=== PATIENT | female | born 1960 | race Caucasian/White ===

== ENCOUNTER → 2016-11-05 | Outpatient (CLI) | payer OTHER ==
[~2016-11-05] MED LIST: ANAS1TAB19 PO; CITA20TA9 PO; LEVO88TA PO; PRLSR20 PO
[2016-11-05 15:02] VITALS: BP 129/76; PULSE 76; TEMP 36.7; O2SAT 96
--- NOTE | 2016-11-05 16:58 | Radiation Oncology Follow-Up ---
Radiation Oncology Follow-Up Date of Visit Nov 05, 2016. Reason For Visit One-month follow-up and cancer survivorship care plan Radiation Completion Date 10/05/16 Diagnosis (1) Breast cancer Status: Acute Onset Date: 06/02/2016 Stage: 0 Permanent Comment: Self detected left breast mass Abnormal left breast mammogram Status post ultrasound-guided biopsies of both areas revealing invasive carcinoma 6:00 biopsy benign and 2:00 biopsy revealing DCIS with microinvasion Status post lumpectomy and sentinel lymph node biopsy 07/15/2016 DCIS and invasive carcinoma Estrogen receptor positive, progesterone receptor positive, HER-2/shayne negative Stage pT1c pN0M0 Prosigna score of 56 Status post completion of radiation therapy 10/05/2016 received 5130 cGy utilizing hypo-fractionation Last Edited By: Ingrid Potter on October 13, 2016 09 :06 History of Present Illness Ms. Abbott is a 56-year-old female without a family history of breast cancer. On July 22 2012 the patient underwent a screening mammogram. At the posterior depth was a superior MLO grouped in determining calcifications thought to be at the 12:00 to 1 o'clock position. Magnification views and ultrasound were recommended. Because of the lack of insurance patient stated she did not to proceed with additional testing is recommended. She subsequently self detected a palpable abnormality in the left breast at the 6 o' clock position. On 05/25/2016 patient underwent a diagnostic mammogram for a palpable abnormality in the inferior portion of the left breast. The mammogram again confirmed extremely dense breast tissue. At the 6 o'clock position in the area of concern to the patient were several small round masses. An ultrasound in the upper outer quadrant at the 2 o'clock position posteriorly there was a lobulated, hypoechoic 1.4 x 0.9 x 1.1 cm mass with internal calcifications. Just medial and superior to this is an ill-defined hypoechoic area with distal shadowing. Both of these areas are suspicious and warrant tissue sampling. In the area of the palpable abnormality there was a slightly irregular marginated, heterogeneous, hypoechoic mass measuring 1.2 x 1.0 x 1.1 cm. This was also suspicious and tissue sampling was warranted. The right breast was also extremely dense but otherwise unremarkable. On 06/02/2016 patient underwent ultrasound-guided breast biopsies. The patient was initially scheduled for biopsy of 2 sites at the 12:00 and 6:00 site. Upon further scanning the 2:00 site is contiguous with the initial site and no second dominant site was identified. A biopsy of the 6:00 mass revealed fat necrosis. Biopsy of the 2:00 mass however revealed ductal carcinoma in situ with microinvasion of a proximally 1 mm with high nuclear grade, solid type measuring 0.6 cm in greatest dimension and involving 2 of the core biopsies. Estrogen receptors were strongly positive and progesterone receptors were moderately positive. HER-2/shayne oncogene expression was negative. A BNC5 consisting of immunohistochemical stain for p63 demonstrated bilateral epithelial cells around most of the atypical tumor nests confirming in situ neoplastic epithelial proliferation. Accession #: [id number]. Patient was seen by Dr. Coffey and bilateral breast MRIs were recommended. The patient agreed and these were performed on 06/30/2016. In the left breast there was an irregular enhancing 1.6 x 1.0 x 1.5 cm mass located in the retroareolar region posteriorly at the site of the known cancer. No other areas of abnormal enhancement was identified. No abnormal axillary adenopathy was visualized. In the right breast no suspicious enhancement was seen and no abnormal axillary lymph nodes were visualized. In the extramammary tissue a 5 mm STIR hyperintense oval area of enhancement is present within the sternum. A bone scan was performed on 07/10/2016 because of this finding on MRI. There was however no evidence of osteoblastic metastatic disease appreciated. Dr. Coffey discussed surgical treatment options and the patient agreed to proceed with a breast conserving therapy technique. Therefore on 07/15/2016 patient underwent a left partial mastectomy and sentinel node biopsy. A total of 6 sentinel lymph nodes were identified and all were negative for metastatic disease. The lumpectomy specimen showed ductal carcinoma in situ, high-grade, solid and cribriform types with luminal necrosis and associated microcalcifications. This area measured 1.1 cm and involved 5 blocks of tissue. Margins were negative for carcinoma. The mass was located 0.15 cm from the closest deep margin. Additional resection of the deep margin provided an additional 1 cm of uninvolved tissue. On the partial mastectomy specimen the microinvasion was indeterminate and a BNC5 was ordered and reported as an addendum. 4 of the 5 blocks tested were positive indicating presence of invasive carcinoma. Based on this information is felt that the invasive carcinoma measures at least 1.2 cm in greatest dimension. An MIB-1 showed 10-20 % proliferative activity, focally reaching up to 30% in the invasive carcinoma, NST, as well as in the in situ components. No angiolymphatic invasion was noted in the multiple blocks examined. Accession #: [id number]. Final pathology is therefore pT1c pN0(sn-) ER positive, NE positive and HER-2/shayne negative. Patient was seen by Dr. Cirilo Barrera for evaluation of the role of adjuvant systemic therapy. He reviewed the pathology which was somewhat confusing as the synoptic report described this as DCIS with possible microinvasion. However the addendum did indicate that there was evidence of invasion. The quantity of invasive disease however was also not clearly defined. It appears that the 4 blocks that tested positive for invasive carcinoma are signed a thickness of 0.3 cm. Thus multiple lying 40.3 cm gives a dimension of 1.[address] Rivear was in discussion with the pathologist to clarify this information. He therefore ordered a Prosigna test to better define the aggressiveness or lack thereof of this lesion. He is waiting for these results prior to making a decision on potential systemic chemotherapy versus adjuvant antiestrogen therapy for 5 years. We were asked to see the patient in referral to review with her the role of adjuvant radiation. The Prosigna score was 56. Chemotherapy was not given. She returned and underwent a CT simulation. She was found to be a candidate for hypo- fractionation. Radiation was completed 10/05/2016. She received 5130 cGy. Interim History Over this past month she continues to have some discomfort of the breast she describes this as a jabbing discomfort. It is very brief period. When it occurs if she applies pressure to the breast it helps to relieve the discomfort. She has noticed dryness of the skin and has been using natural care gel and Aquaphor. She denies any areas of redness or increased warmth. There is no change of the axilla. She does not noticed swelling of her arm. She is scheduled for follow-up mammography. Mammogram has been scheduled for . She also has follow-up appointments with Dr. Coffey and Dr. Barrera. She has been started on Arimidex. She does have hot flashes. She continues to have some residual fatigue. Allergies Coded Allergies: Ibuprofen (Unverified Allergy, Mild, 10/03/14) Sulfa Drugs (Unverified Allergy, Mild, 10/03/14) BEE STING (Verified Allergy, Unknown, ., 10/03/14) Home Medications Scheduled Anastrozole (Arimidex), 1 TAB PO DAILY Citalopram Hydrobromide (Celexa), 20 MG PO DAILY Levothyroxine Sodium (Synthroid), 88 MCG PO DAILY Omeprazole (Prilosec), 20 MG PO DAILY Review of Systems Gastrointestinal: Symptoms: WNL Oral: Symptoms: No Problems Respiratory: Symptoms: Dry Cough Respiratory Comments: occasional dry cough Urinary: Symptoms: WNL Skin: Symptoms: No Problems Breast: Right Upper Arm Measurement: 34.0 Right Mid Arm Measurement: 26.5 Right Wrist Measurement: 17.5 Left Upper Arm Measurement: 34.5 Left Mid Arm Measurement: 27.5 Left Wrist Measurement: 17.5 Arm Dominence: Right Physical Exam Vital Signs Date Time Temp Pulse Resp B/P (MAP) Pulse Ox O2 Delivery O2 Flow Rate FiO2 11/05/16 15:02 36.7 76 18 129/76 96 Pain: Pain Onset: during radiation Pain Duration: since during radiation Patient Pain Scale: 0 - 10 Initial Pain Intensity: 0.0 Additional Comments: occasionally I get stabbing pain through the right breast Fatigue: None General Appearance: no apparent distress Eyes: normal inspection, EOMI ENT: normal ENT inspection, hearing grossly normal Neck: no adenopathy, thyroid normal Respiratory/Chest: lungs clear, no respiratory distress, no accessory muscle use Breast: Breast examination reveals well-healed incision of the left breast. There is resolving hyperpigmentation. There is a noted area of increased hyperpigmentation in the area of her boost. There are no masses or tenderness and no axillary adenopathy. She has no skin retractions or nipple changes. There is no edema of the breast. The right breast showed no masses or tenderness no axillary adenopathy. Cardiovascular: regular rate, rhythm, no gallop, no murmur Extremities: no pedal edema Neurologic/Psychiatric: no motor/sensory deficits, alert, normal mood/affect Skin: warm/dry Lymphatic: no adenopathy Assessment & Plan Plan: She is currently scheduled for mammography on 12/10/2016. She'll continue with digital diagnostic mammograms. She hasn't appointment see Dr. Coffey on 12/29/2016. She continues on Arimidex and will be following with Dr. Rivera on 01/14/2017. I have recommended that she use Aquaphor on a regular basis for the dry skin. We discussed the hyperpigmentation most steadily resolved over time. Today we completed a cancer survivorship care plan. A copy of the document was given to the patient. For the intermittent discomfort of the breast have asked her to take Aleve once a day regularly for one week. She can then discontinue the medication. She does have an allergy to ibuprofen but is able to take him without difficulty. We asked her to return to our office in 6 months. She may call if she has any questions or concerns in the interim. Total Time In Follow-Up I spent 20 minutes speaking to the patient and performing examination. I spent 20 minutes reviewing information, preparing the survivorship document, and completing this note. Copy To Katrin Coffey MD; Venkat Graves M.D.; Cirilo Barrera M.D. Problem Qualifiers (1) Breast cancer: Breast location: upper outer quadrant of breast Estrogen receptor status: positive Patient sex: female Laterality: left Qualified Codes: C50.412 - Malignant neoplasm of upper-outer quadrant of left female breast; Z17.0 - Estrogen receptor positive status [ER+]
== END | disposition home or self-care (01) ==
LOC: C.ONC 14:52
PROVIDERS: ATTEND Physician Assistant Medical
DX: Z08 Encounter for follow-up examination after completed treatment for malignant neoplasm (principal); Z92.3 Personal history of irradiation; Z85.3 Personal history of malignant neoplasm of breast

== ENCOUNTER → 2017-05-11 | Outpatient (CLI) | payer OTHER ==
[~2017-05-11] MED LIST changes: -ANAS1TAB19 PO; +ANAS1TAB59 PO
[2017-05-11 13:42] VITALS: BP 136/82; PULSE 67; TEMP 36.9; O2SAT 96
--- NOTE | 2017-05-11 16:09 | Radiation Oncology Follow-Up ---
Radiation Oncology Follow-Up Date of Visit May 11, 2017. Reason For Visit 6 month follow-up Radiation Completion Date 10/05/16 Diagnosis (1) Breast cancer Status: Acute Onset Date: 06/02/2016 Histology Subtype: DCIS with microinvasion Stage: l Permanent Comment: Self detected left breast mass Abnormal left breast mammogram Status post ultrasound-guided biopsies of both areas revealing invasive carcinoma 6:00 biopsy benign and 2:00 biopsy revealing DCIS with microinvasion Status post lumpectomy and sentinel lymph node biopsy 07/15/2016 DCIS and invasive carcinoma Estrogen receptor positive, progesterone receptor positive, HER-2/shayne negative Stage pT1c pN0M0 Prosigna score of 56 Status post completion of radiation therapy 10/05/2016 received 5130 cGy utilizing hypo-fractionation Last Edited By: Ingrid Potter on October 13, 2016 09 :06 History of Present Illness Ms. Abbott is without a family history of breast cancer. On July 22 2012 the patient underwent a screening mammogram. At the posterior depth was a superior MLO grouped in determining calcifications thought to be at the 12:00 to 1 o'clock position. Magnification views and ultrasound were recommended. Because of the lack of insurance patient stated she did not to proceed with additional testing is recommended. She subsequently self detected a palpable abnormality in the left breast at the 6 o'clock position. On 05/25/2016 patient underwent a diagnostic mammogram for a palpable abnormality in the inferior portion of the left breast. The mammogram again confirmed extremely dense breast tissue. At the 6 o'clock position in the area of concern to the patient were several small round masses. An ultrasound in the upper outer quadrant at the 2 o'clock position posteriorly there was a lobulated, hypoechoic 1.4 x 0.9 x 1.1 cm mass with internal calcifications. Just medial and superior to this is an ill-defined hypoechoic area with distal shadowing. Both of these areas are suspicious and warrant tissue sampling. In the area of the palpable abnormality there was a slightly irregular marginated, heterogeneous, hypoechoic mass measuring 1.2 x 1.0 x 1.1 cm. This was also suspicious and tissue sampling was warranted. The right breast was also extremely dense but otherwise unremarkable. On 06/02/2016 patient underwent ultrasound-guided breast biopsies. The patient was initially scheduled for biopsy of 2 sites at the 12:00 and 6:00 site. Upon further scanning the 2:00 site is contiguous with the initial site and no second dominant site was identified. A biopsy of the 6:00 mass revealed fat necrosis. Biopsy of the 2:00 mass however revealed ductal carcinoma in situ with microinvasion of a proximally 1 mm with high nuclear grade, solid type measuring 0.6 cm in greatest dimension and involving 2 of the core biopsies. Estrogen receptors were strongly positive and progesterone receptors were moderately positive. HER-2/shayne oncogene expression was negative. A BNC5 consisting of immunohistochemical stain for p63 demonstrated bilateral epithelial cells around most of the atypical tumor nests confirming in situ neoplastic epithelial proliferation. Accession #: [id number]. Patient was seen by Dr. Coffey and bilateral breast MRIs were recommended. The patient agreed and these were performed on 06/30/2016. In the left breast there was an irregular enhancing 1.6 x 1.0 x 1.5 cm mass located in the retroareolar region posteriorly at the site of the known cancer. No other areas of abnormal enhancement was identified. No abnormal axillary adenopathy was visualized. In the right breast no suspicious enhancement was seen and no abnormal axillary lymph nodes were visualized. In the extramammary tissue a 5 mm STIR hyperintense oval area of enhancement is present within the sternum. A bone scan was performed on 07/10/2016 because of this finding on MRI. There was however no evidence of osteoblastic metastatic disease appreciated. Dr. Coffey discussed surgical treatment options and the patient agreed to proceed with a breast conserving therapy technique. Therefore on 07/15/2016 patient underwent a left partial mastectomy and sentinel node biopsy. A total of 6 sentinel lymph nodes were identified and all were negative for metastatic disease. The lumpectomy specimen showed ductal carcinoma in situ, high-grade, solid and cribriform types with luminal necrosis and associated microcalcifications. This area measured 1.1 cm and involved 5 blocks of tissue. Margins were negative for carcinoma. The mass was located 0.15 cm from the closest deep margin. Additional resection of the deep margin provided an additional 1 cm of uninvolved tissue. On the partial mastectomy specimen the microinvasion was indeterminate and a BNC5 was ordered and reported as an addendum. 4 of the 5 blocks tested were positive indicating presence of invasive carcinoma. Based on this information is felt that the invasive carcinoma measures at least 1.2 cm in greatest dimension. An MIB-1 showed 10-20 % proliferative activity, focally reaching up to 30% in the invasive carcinoma, NST, as well as in the in situ components. No angiolymphatic invasion was noted in the multiple blocks examined. Accession #: [id number]. Final pathology is therefore pT1c pN0(sn-) ER positive, LA positive and HER-2/shayne negative. Patient was seen by Dr. Ciirlo Barrera for evaluation of the role of adjuvant systemic therapy. He reviewed the pathology which was somewhat confusing as the synoptic report described this as DCIS with possible microinvasion. However the addendum did indicate that there was evidence of invasion. The quantity of invasive disease however was also not clearly defined. It appears that the 4 blocks that tested positive for invasive carcinoma are signed a thickness of 0.3 cm. Thus multiple lying 40.3 cm gives a dimension of 1.[address] Rivera was in discussion with the pathologist to clarify this information. He therefore ordered a Prosigna test to better define the aggressiveness or lack thereof of this lesion. He is waiting for these results prior to making a decision on potential systemic chemotherapy versus adjuvant antiestrogen therapy for 5 years. We were asked to see the patient in referral to review with her the role of adjuvant radiation. The Prosigna score was 56. Chemotherapy was not given. She returned and underwent a CT simulation. She was found to be a candidate for hypo- fractionation. Radiation was completed 10/05/2016. She received 5130 cGy. Interim History She's been doing well in regards to her breast. She noted a masses or tenderness no change of the axilla she's had no swelling of her arm. She is up- to-date on mammography. She had a mammogram 12/10/2016. This was of the left breast. Findings are probably benign. A short interval follow-up was recommended in 6 months. She is for recheck mammogram 05/14/2017. She does have a complaint of a occipital headache. This was been going on for the past 2 -3 months. She is a pain level of 3. This can be up to level . She is takes Aleve. This does not help. There is been no visual changes. She has no associated nausea or vomiting. She did see the eye doctor and had her vision checked and it was doing fine. We discussed possible strenuous activities. She does not recall any strains to her neck. Allergies Coded Allergies: Ibuprofen (Unverified Allergy, Mild, 10/03/14) Sulfa Drugs (Unverified Allergy, Mild, 10/03/14) BEE STING (Verified Allergy, Unknown, ., 10/03/14) Home Medications Scheduled Anastrozole (Arimidex), 1 TAB PO DAILY Citalopram Hydrobromide (Celexa), 20 MG PO DAILY Levothyroxine Sodium (Synthroid), 88 MCG PO DAILY Omeprazole (Prilosec), 20 MG PO DAILY Review of Systems Gastrointestinal: Symptoms: WNL Oral: Symptoms: No Problems Respiratory: Symptoms: WNL Urinary: Symptoms: WNL Skin: Symptoms: No Problems Breast: Right Upper Arm Measurement: 33.5 Right Mid Arm Measurement: 28.5 Right Wrist Measurement: 17.1 Left Upper Arm Measurement: 35.1 Left Mid Arm Measurement: 27.9 Left Wrist Measurement: 17.1 Arm Dominence: Right Physical Exam Vital Signs Date Time Temp Pulse Resp B/P (MAP) Pulse Ox O2 Delivery O2 Flow Rate FiO2 05/11/17 13:42 36.9 67 18 136/82 96 General Appearance: no apparent distress Eyes: normal inspection, EOMI ENT: normal ENT inspection, hearing grossly normal Neck: no adenopathy, thyroid normal, no JVD, + pertinent finding (she has tenderness of the left posterior neck. There is tenderness of the left occipital area.) Respiratory/Chest: lungs clear, no respiratory distress, no accessory muscle use Cardiovascular: regular rate, rhythm, no gallop, no murmur Neurologic/Psychiatric: no motor/sensory deficits, alert, normal mood/affect Skin: warm/dry Pain Management Patient Reports Pain: Yes Pain Management Plan She is going to take 2 Aleve twice daily with food for the next week. She'll also apply warm compresses Laboratory Laboratory Results: not applicable Pathology Pathology Results: not applicable Imaging Imaging Studies: were reviewed, and pertinent findings noted below Imaging Comments Date/Time of Imaging Study Study Completed: 12/10/2016 1:41 PM [facility] PACS Image Narrative Comparison is made to images from 06/02/2016 (left) and images from 05/25/2016 ( bilateral) and outside images from 10/19/2005 ([facility] The patient is status post lumpectomy of 2:00 DCIS with microinvasion July 2016. Benign 6:00 mass with pathology demonstrating fat necrosis via biopsy May 2016. Left Breast Findings: The breast is extremely dense (greater than 75% fibroglandular) which could obscure a lesion on mammography. Biopsy clip from prior benign 6:00 biopsy noted. No new suspicious calcifications, masses or other abnormalities. Authenticated By Authenticating Date Authenticating Time Reading Providers(s) GREGORIA SHEARER MD 12-10-2016 14:05 GREGORIA SHEARER MD IMPRESSION: LEFT BREAST: Findings are probably benign. A short interval follow-up is recommended in 6 months. She will be due for bilateral mammogram at that time. The above findings and recommendations were discussed with and understood by the patient. Note: Approximately 10% of breast cancers are not detected on mammography. A negative mammographic report should not delay biopsy if a clinically suggestive mass is present. This mammogram has been analyzed with the computer aided detection system. Tomosynthesis was done. This notice contains the results of your recent mammogram, including information about breast density. If your mammogram shows that your breast tissue is dense, you should know that dense breast tissue is a common finding and is not abnormal. Statistics show many women could have dense or highly dense breasts. Dense breast tissue can make it harder to find cancer on a mammogram and may be associated with an increased risk of cancer. This information about the result of your mammogram is given to you to raise your awareness and to inform your conversations with your physician. Together, you can decide which screening options are right for you, based on your mammogram results, individual risk factors or physical examination. A report of your results was sent to your physician. Your mammographic breast density on today's study is described above. There are four categories of breast density on mammography. Fatty breasts and those with scattered fibroglandular tissue are not considered dense. Heterogeneously dense or extremely dense tissue is considered "dense". Please understand that assessment of breast density may vary from year to year. OVERALL ASSESSMENT - CATEGORY 3 - PROBABLY BENIGN END OF IMPRESSION Assessment & Plan Plan: Patient describes and has examination grammatical with the muscle tension headache. I've asked her to apply warm compresses each evening. She is also going to take 2 Aleve twice a day for one week. She'll take the medication with food. We discussed mild stretching exercises for the neck. I've asked her to discuss these symptoms with if they are not improving. We asked her to return to our office in 1 year. She may call if she has any questions or concerns in the interim. Total Time In Follow-Up I spent 25 minutes speaking to the patient performing examination. I spent 15 minutes reviewing information in completing this note. Copy To Katrin Coffey MD; Venkat Graves M.D.; Cirilo Barrera M.D. Problem Qualifiers (1) Breast cancer: Breast location: upper outer quadrant of breast Estrogen receptor status: positive Patient sex: female Laterality: left Qualified Codes: C50.412 - Malignant neoplasm of upper-outer quadrant of left female breast; Z17.0 - Estrogen receptor positive status [ER+]
== END | disposition home or self-care (01) ==
LOC: C.ONC 13:27
PROVIDERS: ATTEND Physician Assistant Medical
DX: Z08 Encounter for follow-up examination after completed treatment for malignant neoplasm (principal); Z92.3 Personal history of irradiation; Z85.3 Personal history of malignant neoplasm of breast

== ENCOUNTER 2020-07-11 07:25 | Observation (INO) ==
--- NOTE | 2020-07-04 11:34 | History & Physical Report ---
Date of Service July 04, 2020 Assessment & Plan Admission and Anticipated Discharge Date Admission Date: PRE-OP Diagnosis: Left knee degenerative joint disease Planned Procedure: Left total knee arthroplasty Plan: Patient is scheduled to undergo this procedure with Dr. Agudelo the [facility] on July 11, 2020. Risks and complications of the procedure such as: Infection, bleeding, pain, scarring, nerve blood vessel damage, weakness, wound problems, stiffness, incomplete relief of symptoms, hardware failure, hardware loosening, wear, fracture, tendon or ligament injury, blood clots, embolism, heart attack, stroke and were explained the patient at her visit on May 07, [address] Agudelo. Informed consent form the procedure was obtained. Patient also understands risks of proceeding with surgical intervention during the COVID-19 pandemic. Currently she is asymptomatic and understands that she will be tested today. Patient has met with anesthesia at the hospital and has done a second phone interview. We will need to obtain an updated CBC with differential, complete metabolic panel, PT/INR, blood type and screen, urinalysis, urine culture and sensitivity, hemoglobin A1c and a nasal culture for MRSA. Patient states that she will proceed to the laboratory and obtain this test this morning. Her EKG is currently up-to-date and does not need to be repeated. We also have obtained preoperative medical clearance from the patient's primary care provider Dr. Juancho Graves. During today's visit we again discussed specifics of the surgery, reviewed the total knee packet, discussed antibiotic use for dental procedures after total joint arthroplasty, talked about discharge planning after surgery. I provided her with some paperwork to obtain a handicap placard for her vehicle and we talked about zoom meetings offered by [facility] in regards to her replacement surgery via zoom. Patient states she has a walker that she will bring with her on the day of the procedure. I advised her that she will be on aspirin for DVT prophylaxis following surgery. I advised her that we will also provide her with some pain relieving agents upon discharge. Patient is scheduled for 2-week postoperative follow-up visit with myself on July 26, 2020 1:30 in the afternoon. Patient verbalized understanding of all information provided during today's visit. She thanks for the care that she received. Patient states she has questions or concerns should arise prior to her surgery, she will contact clinic. History of Present Illness Chief Complaint: Chief Complaint: Left knee pain Primary Care Provider: Tamie Burns PA-C History of Present Illness (including history relevant to procedure): This 60-year-old female presents the clinic today for preoperative history and physical. The patient has had issues with her left knee dating back to when she was in her 20s. She says about 7 years ago was when her symptoms started really worsening. Now, it is to the point where she is having difficulty walking, sitting, or even sleeping. She points to the medial aspect of her knee and anterior aspect of the knee as where she feels most of the pain. Occasionally, she will feel posterior knee pain. She has been taking this and this has been helping somewhat. Denies any numbness or tingling. She is getting a lot of mechanical symptoms; popping, catching, and clicking. Patient is failed conservative management with the use of nonsteroidal agents, injections and physical therapy. Patient was initially scheduled for this procedure on June 06, 2020, however it was canceled due to the operating room at the [facility] being closed due to the COVID-19 pandemic upswing. Review Of Systems: A 14 point review of systems performed is unremarkable except for those things stated in the HPI Past Medical History: Problems: Left knee DJD Preop examination Left knee pain Anxiety/depression Hypothyroidism GERD Hiatal hernia Breast cancer Procedure History Procedure Procedure Date Comments Breast cancer surgery section x2 2017 1985 &1991 Allergies and Sensitivities: Bee stings(Anaphylaxis) sulfa drugs(Persistent redness of skin) ibuprofen(scatchy throat, hives) Social history: Completely unremarkable Family history: Stroke Current Home Meds: (Last Updated 07/04 10:21) acetaminophen (Tylenol) 500 mg PO with meloxicam ciprofloxacin (Cipro 500 mg oral tablet) 500 mg PO q12h citalopram (citalopram 20 mg oral tablet) Responsible Provider: TAMIE BURNS 01/25 10:20 diclofenac topical (Voltaren 1% topical gel) 1 appl topical qid PRN: Pain 4g to affected area 4 times a day letrozole (letrozole 2.5 mg oral tablet) Responsible Provider: CAROLE SHEN 01/25 10:20 levothyroxine (levothyroxine 88 mcg (0.088 mg) oral tablet) Responsible Provider: JUANCHO GRAVES 01/25 10:20 omeprazole (omeprazole 20 mg oral delayed release capsule) 20 Unknown, Oral sodium hyaluronate (Euflexxa 10 mg/mL intra-articular solution) 25 mg intra- articular q7days Initial Wt: 07/04 90.0 kg 198 lb Allergies Allergy/AdvReac Type Severity Reaction Status Date / Time bee venom protein (honey bee) Allergy Intermediate THROAT Verified 07/02/20 15:35 SWELLING ibuprofen Allergy Intermediate Hives Unverified 07/02/20 15:35 Sulfa (Sulfonamide Allergy Intermediate Hives Unverified 07/02/20 15:35 Antibiotics) Home Medications Medication Instructions Recorded Confirmed Type citalopram 20 mg PO QAM 12/15/19 07/02/20 History letrozole 2.5 mg PO QAM 12/15/19 07/02/20 History levothyroxine 88 mcg PO QAM 12/15/19 07/02/20 History omeprazole 20 mg PO QAM 12/15/19 07/02/20 History diphenhydramine HCl [Benadryl] 25 mg PO UD PRN 04/29/20 07/02/20 History epinephrine [Epi E-Z Pen] 0.3 mg IM UD PRN 04/29/20 07/02/20 History Past Med/Surg History Medical History Breast cancer (06/02/16) 2017, Invasive carcinoma of L breast, s/p lumpectomy and radiation. Depression Fatty liver GERD (gastroesophageal reflux disease) History of breast cancer DX 2017, LEFT - LUMPECTOMY WITH LYMPH NODES & RADIATION Thyroid disease Surgical History History of 2 sections History of anesthesia reaction 1992 - Awareness during C/S after gas/mask induction. Eyes were closed but she could hear everything. Does not recall having spinal, but recalls only feeling pressure during procedure. History of colonoscopy History of lumpectomy of left breast WITH LYMPH NODES Family History Other No family history of adverse response to anesthesia Social History Smoking Status: Never smoker Second Hand Exposure: No; Hx Alcohol Use: No Preferred Language: [place] Communication Ability: Effective Plan Coordinator Required: No Beliefs That Will Affect Care: None Current Living Situation: Spouse Feels Safe at Home: Yes Assistive Devices: Brace/Splint/Immobilizer, Denture - Upper, Denture - Lower and Glasses Review of Systems All systems reviewed & are unremarkable except as noted in Subjective Physical Exam Physical Exam: Physical Exam: (relevant to the procedure, including heart and lung evaluation) General: Alert and oriented x3 with proper grooming and hygiene Eyes: Pupils are equal and reactive to light with accommodation. Extraocular movements are intact Throat: Deferred due to COVID-19 precautions Cardiac: Regular rate and rhythm no murmurs or gallops appreciated Lungs: Clear to auscultation throughout no wheezing, rales or rhonchi Abdomen: Mildly obese, nondistended, nontender, normal active bowel sounds Extremities: Left knee; Trace effusion. Tender to palpation along the medial m ore than lateral joint lines. Also severely tender along the patellofemoral joint. Range of motion is from 3 degrees up to 120 degrees. Neuro: Alert and oriented x3 appropriate hygiene Skin: Normal in appearance no open skin areas or discharge Results & Data ([facility]) Diagnostic Findings Studies (relevant to the procedure): X-rays done demonstrate patellofemoral severe arthritis and moderately severe tibiofemoral arthritis in the medial compartment.
--- NOTE | 2020-07-04 13:07 | Anesthesiology Consultation ---
Date of Service July 04, 2020 Assessment & Plan (1) Encounter for pre-operative examination: Chart Review Chart Review: Acceptable Risk for Surgery (pending preop Covid testing results ) and Patient NOT seen in Pre Admission Testing Left limb restriction Per nursing assessment 07/02/20, pt denies any recent travel. No known Covid positive contacts or Covid related symptoms. Pt denies Covid infection in the past 90 days. Scheduled for preop Covid testing 07/04/20= will await results. Per PCP clearance request 05/09/20= "Yes" patient is medically cleared History Surgery Operation Date: 07/11/20 10:35 Proposed Procedures p Left Total Knee Arthroplasty - Dionte Agudelo MD Height/Weight Height: 5 ft 7.5 in Weight: 90.718 kg Allergies Allergy/AdvReac Type Severity Reaction Status Date / Time bee venom protein (honey bee) Allergy Intermediate THROAT Verified 07/02/20 15:35 SWELLING ibuprofen Allergy Intermediate Hives Unverified 07/02/20 15:35 Sulfa (Sulfonamide Allergy Intermediate Hives Unverified 07/02/20 15:35 Antibiotics) Medications Home Medications Medication Instructions Recorded Confirmed Last Taken citalopram 20 mg PO QAM 12/15/19 07/02/20 12/14/19 letrozole 2.5 mg PO QAM 12/15/19 07/02/20 12/14/19 levothyroxine 88 mcg PO QAM 12/15/19 07/02/20 12/14/19 omeprazole 20 mg PO QAM 12/15/19 07/02/20 12/14/19 diphenhydramine HCl [Benadryl] 25 mg PO UD PRN 04/29/20 07/02/20 Unknown epinephrine [Epi E-Z Pen] 0.3 mg IM UD PRN 04/29/20 07/02/20 Unknown Past Medical History Medical History Breast cancer (06/02/16) 2017, Invasive carcinoma of L breast, s/p lumpectomy and radiation. Depression Fatty liver GERD (gastroesophageal reflux disease) Thyroid disease Hypothyroidism Past Family History Family History Other No family history of adverse response to anesthesia Past Surgical History Surgical History History of 2 sections History of anesthesia reaction 1991 - Awareness during C/S after gas/mask induction. Eyes were closed but she could hear everything. Does not recall having spinal, but recalls only feeling pressure during procedure. History of colonoscopy History of lumpectomy of left breast WITH LYMPH NODES Social History Smoking Status: Never smoker Hx Alcohol Use: No substance use type: does not use Testing Laboratory Results Laboratory Tests 07/04/20 07/04/20 07/04/20 11:05 11:05 11:05 WBC 7.54 Hgb 15.4 Hct 46.4 Plt Count 270 PT 10.1 INR 1.0 Sodium 142 Potassium 4.3 Chloride 108 H Carbon Dioxide 29 BUN 14 Creatinine 1.14 Glucose 105 H 07/04/20= HGB A1C: 5.7 UA: bacteria negative Electrocardiogram Date: 05/07/20 Findings: + SB @ (59bpm) Minimal voltage criteria for LVH, may be normal variant. No significant change from 2014.
[~2020-07-11 07:25] MED LIST changes: +ACETAMINOPHEN 500 MG TAB PO SCH; -ANAS1TAB59 PO; +BUPIVACAINE 0.5 % 5 MG/1 ML PF 10ML VIAL ONE; -CITA20TA9 PO; +EPINEPHrine INJ 1 MG/ML AMP ONE; +FAMOTIDINE 20 MG TAB PO SCH; -LEVO88TA PO; +LR 60ML/HR IV SCH; +METOCLOPRAMIDE HCL 10 MG TABLET PO SCH; -PRLSR20 PO; +ROPIVACAINE 0.5% 5 MG/ML 30 ML VIAL ONE; +ROPIVACAINE 0.5% HCL/PF 150 MG, BUPIVACAINE 0.75% MPF 20 ML, EPINEPHrine 0.15 MG, Ketor... INFIL SCH; +TRANEXAMIC ACID 1,000 MG **IV Intra-op IV SCH; +TRANEXAMIC ACID 1,000 MG **IV Pre-op IV SCH; +[UNRECOGNIZED DRUG - REMARK] SCH; +ceFAZolin 2000MG 2,000 MG/15 ML SYR IV SCH; +dexAMETHasone 4 MG TAB PO SCH; +traMADol HCL 50 MG TABLET PO SCH
[2020-07-11] MEDS: LR 500ML BOLUS, THEN 15ML/HR IV SCH ×2 (08:11→10:16)
[2020-07-11] MEDS ORDERED: MIDAZOLAM HCL 1 MG/ML 2ML VIAL ONE (09:15)
[2020-07-11] MEDS ORDERED: ONDANSETRON INJ 2 MG/ML 2 ML VIAL ONE (09:15)
[2020-07-11] MEDS ORDERED: PROPOFOL IV EMULSION 10 MG/ML 20 ML VIAL IV ONE (09:15)
[2020-07-11] MEDS ORDERED: fentaNYL citrate 100 MCG/2 ML VIAL ONE (09:15)
[2020-07-11] MEDS ORDERED: ORTHO JOINT ANESTHETIC ONE (10:58)
[2020-07-11] MEDS ORDERED: ROPIVACAINE 0.5% HCL/PF 150 MG, BUPIVACAINE 0.75% MPF 20 ML, EPINEPHrine 0.15 MG, Ketor... INFIL ONE (11:00)
[2020-07-11] MEDS ORDERED: Nursing to Pharmacy Communication SCH ×2 (11:00→16:30)
--- NOTE | 2020-07-11 11:01 | History & Physical Bridge Note ---
Date of Service July 11, 2020 History & Physical Bridge Note I have examined the patient, reviewed the History & Physical and in the interval since the performance of the History & Physical I have noted the following changes of clinical significance: no changes noted
[2020-07-11] MEDS ORDERED: ePHEDrine sulfate 50 MG/ML AMP IV PRN (12:36)
[2020-07-11] MEDS ORDERED: ATROPINE SULFATE 0.1 MG/ML 10ML SYR IV PRN (12:36)
--- NOTE | 2020-07-11 13:19 | Operative Report ---
Post Operative Report Pre & Post Diagnosis Operation Date: 07/11/20 10:05 Pre-Op Diagnosis: Left Knee Osteoarthritis Post-Op Diagnosis: Left Knee Osteoarthritis I identified the patient and participated in the time-out.: Yes Procedure Operation Date: 07/11/20 10:05 Actual Procedures p Left Total Knee Arthroplasty(Left) - Dionte Agudelo MD Surgeon Dionte Agudelo MD Franchise Sales Representative JACK Cardona PA-C Estimated Blood Loss 100 Findings Consistent with Post-Op Diagnosis Specimens Bone and soft tissue contents left knee Anesthesia Type Spinal MAC Complications none Disposition Accompanied Patient To Recovery: No Disposition: Recovery Room Indications 60-year-old female with left knee arthritis refractory to conservative management. She is failed cortisone injections physical therapy activity modifications NSAIDs and others. After reviewing all the risks and benefits of surgery, alternatives to surgery, and expected outcomes she elected to proceed with a total knee arthroplasty. All questions were answered. Informed consent was signed. Description of Procedure Patient was identified in the preoperative holding area where the surgical site, left knee, was marked. Patient was brought back to the operating room, placed on the operating room table, and IV sedation was administered. All bony prominences were padded. Perioperative antibiotics and tranexamic acid were administered. Exam under anesthesia was performed. This demonstration the patient have a 3 degree flexion contracture, flexion up to 130 degrees. Stable to varus and valgus at 0 and 30 degrees with mild pseudolaxity to valgus stress test. The surgical site was prepped and draped in the normal sterile fashion. Prior to incision a multidisciplinary timeout was called. All in the room were in agreement. We began by exsanguinating the limb with an Esmarch bandage. Tourniquet was inflated to 275 mmHg. A 14 cm long incision was made over the anterior aspect of the knee. I dissected through the subcutaneous tissues to the level of the fascia. Full-thickness flaps are raised above the fascia. A median parapatellar arthrotomy was made. Half the fat pad was excised. A medial release was performed with Bovie electrocautery on the proximal tibia. Synovitis in the suprapatellar pouch was removed. The patella was then everted and held with 2 towel clips. The thickness of the patella was measured at 20 mm. Patellar resection was performed. Caliper showed the patella thickness now to be 12 mm. A size 35 mm trial was placed and had a great fit. The 3 drill holes were placed then the trial button was placed. The patellar thickness was now 21 mm which I was very happy with. The patellar trial was then removed, the patella was everted and the knee was flexed up. Osteophytes were removed from the femoral condyles and intercondylar notch. The ACL and PCL were excised. Intramedullary drill guide was drilled into the femur. Distal femoral cutting guide was placed set at 5 degrees of valgus to resect 11 mm off the distal femur. Distal femoral resection was made without difficulty. The tibia was then exposed. The lateral meniscus was sharply excised. The tibial cutting jig was positioned to resect 10 mm off the less involved compartment. The jig was then pinned in position and the tibial cut was made. We then brought the knee into full extension. Lamina spreaders were placed. The medial meniscus was excised. The extension block was then placed for 10 mm thickness poly. This gave us full extension and excellent stability to varus and valgus. Next the knee was flexed up and the femoral sizing guide was placed. The patient sized to a size 2.5 femur. The 3 degree external rotation jig was used to create 2 holes in the distal femur. The jig was removed and the holes were compared to Whitesides axis and the epicondylar axis. We were happy with the rotation, and therefore placed a size three 4-in-1 cutting jig and pinned this into position. Our 4 cuts were made. The cutting jig was removed. The flexion block was then placed with the knee held at 90 degrees. There was excellent stability to varus and valgus at 90 degrees with no gapping medially or laterally. Next the box cutting jig was placed on the distal femur. The box cut was made and the femoral trial was impacted into position. The tibia was sized to a 2.5 for a all polyethylene tibial component. The tibial tray was positioned in external rotation on the cut tibial surface and the knee was brought through a full range of motion. We then pinned the tibial tray into position and used the intramedullary drill followed by the keel punch. The trial polyethylene was then placed and the knee was brought through a full range of motion. I was very happy with the stability through a full range of motion, and the patellar tracking was excellent. Next the trial components were removed. I then injected the posterior capsule and periosteum with the periarticular injection cocktail. The bone cuts were then irrigated and dried while the cement was mixed on the back table. The femoral component was cemented on first. Excess cement was removed. A lap sponge was placed over the femoral component for protection, then the tibia was subluxated anteriorly. The tibial component was then cemented in place. Again excess cement was removed. The trial polyethylene was then placed and the knee was brought into full extension and held there until the cement cured. The patella was cemented and clamped. Dilute Betadine solution was then allowed to irrigate the knee while the cement cured. Once the cement was fully cured, the tourniquet was let down and meticulous hemostasis was ensured. The wound was irrigated out with copious amounts normal saline. The knee was brought through a full range of motion and we are very happy with the patella tracking and the stability. Therefore, the trial tibial polyethylene was removed and the real size 2.5 polyethylene 10 mm thickness was placed. We then began to close. Interrupted 0 Vicryl suture was used to repair the patellar retinaculum in [id number] fashion. The quadriceps and patellar tendons were run with #1 Ethibond. The deep dermal layer was closed with interrupted 2-0 Vicryl. Zipline was used for the skin. A compressive dressing was placed. Patient's sedation was lifted and was transferred to recovery room in stable condition. Summary of implants: Depuy Sigma Posterior Stabilized Cemented Femur, size 2.5 Tibial all polyethylene implant, 10 mm thickness, size 2.5 Oval come patella, size 35 2 batches of simplex bone cement Postoperative course: Patient will be admitted to the floor for pain control and monitoring. Weightbearing as tolerated with no knee range of motion for 48 hours. Aspirin for DVT prophylaxis. I attest to the content of the Intraoperative Record and any orders documented therein. Any exceptions are noted below.
--- NOTE | 2020-07-11 13:27 | Operative Report ---
Post Operative Report Pre & Post Diagnosis Operation Date: 07/11/20 10:05 Pre-Op Diagnosis: Left Knee Osteoarthritis Post-Op Diagnosis: Left Knee Osteoarthritis I identified the patient and participated in the time-out.: Yes Procedure Operation Date: 07/11/20 10:05 Actual Procedures p Left Total Knee Arthroplasty(Left) - Dionte Agudelo MD Surgeon Dionte Agudelo MD Brick Tender JACK Cardona PA-C Estimated Blood Loss 100 Findings Consistent with Post-Op Diagnosis Specimens none Complications none Disposition Accompanied Patient To Recovery: No Disposition: Recovery Room Description of Procedure I was present during the entire procedure assisting with positioning, prepping, draping, retraction, wound closure, and dressing application. No fellow present. Please see Dr. Agudelo procedure note for specifics of the case. I attest to the content of the Intraoperative Record and any orders documented therein. Any exceptions are noted below.
[2020-07-11] MEDS ORDERED: METOCLOPRAMIDE HCL INJ 5 MG/ML 2 ML VIAL IV PRN (13:29)
[2020-07-11] MEDS ORDERED: bisacodyL 10 MG SUPP PR PRN (13:29)
[2020-07-11] MEDS ORDERED: ALUMINUM/MAGNESIUM SUSP 30 ML UDC PO PRN (13:29)
[2020-07-11] MEDS ORDERED: NALOXONE HCL 0.4 MG/1 ML VIAL/CARP IV PRN (13:29)
[2020-07-11] MEDS ORDERED: HYDROmorphone INJ 0.5 MG/0.5 ML SYR IV PRN (13:29)
[2020-07-11] MEDS ORDERED: ONDANSETRON INJ 2 MG/ML 2 ML VIAL IV PRN (13:29)
[2020-07-11] MEDS ORDERED: MAGNESIUM HYDROXIDE SUSP 30 ML UDC PO PRN (13:29)
[2020-07-11] MEDS ORDERED: diphenhydrAMINE 50 MG/ML VIAL IV PRN (13:29)
[2020-07-11] MEDS ORDERED: EPINEPHrine ADULT AUTO-INJECT 0.3 MG SYR IM PRN (13:33)
[2020-07-11] MEDS ORDERED: diphenhydrAMINE Capsule 25 MG CAP PO PRN (13:33)
--- NOTE | 2020-07-11 13:53 | Anesthesiology Progress Note ---
Date of Service July 11, 2020 Anesthesia Post Procedure Vital Signs Vital Signs: Temp Pulse Pulse Resp BP Pulse Ox 07/11/20 13:50 67 20 104/63 97 07/11/20 13:40 70 18 107/61 95 07/11/20 13:30 70 17 101/66 95 07/11/20 13:23 36.7 C 74 22 107/67 95 07/11/20 07:57 37.2 C 66 18 135/75 98 Transfer of Care Handoff Completed per policy Notes Mental Status: alert / awake / arousable Patient Amnestic to Procedure: Yes Nausea / Vomiting: adequately controlled Pain: adequately controlled Airway Patency, RR, SpO2: stable & adequate BP & HR: stable & adequate Hydration State: stable & adequate Neuraxial Anesthesia: was administered and sensory block is resolving Anesthetic Complications: no major complications apparent
--- NOTE | 2020-07-11 14:05 | XRay Report ---
TWO VIEWS LEFT KNEE CLINICAL HISTORY: Postoperative examination. FINDINGS: AP and crosstable lateral portable views of the left knee are obtained. A left knee arthrop lasty is in near anatomic alignment. There has been undersurface remodeling of the patella. No acute fracture is seen. Soft tissue edema and subcutaneous gas surrounding the left knee are expected posto perative findings. IMPRESSION: Expected postoperative changes status post left knee arthroplasty. No acute fracture is s een. ACT 112: Negative or not required by law. Electronically signed by: Philipp Lee M.D. 07/11/2020 2:04 PM
[2020-07-11] MEDS: SODIUM CHLORIDE 0.9% 1000ML 1,000 ML IV SCH (14:50)
[2020-07-11] MEDS: Scopolamine CHECK PATCH PLACEMENT SCH (15:22)
[2020-07-11] MEDS: ACETAMINOPHEN 500 MG TAB PO SCH ×2 (15:23→21:14)
[2020-07-11] MEDS: KETOROLAC TROMETHAMINE 15 MG/ML VIAL IV SCH ×2 (15:25→21:17)
[2020-07-11] MEDS: oxyCODONE HCL IR 5 MG TAB (IMMEDIATE RELEASE) PO PRN ×2 (16:30→22:14)
[2020-07-11] MEDS ORDERED: ceFAZolin 2000MG 2,000 MG/15 ML SYR IV SCH (19:30)
[2020-07-11] MEDS ORDERED: TRANEXAMIC ACID / 0.7% NACL 1,000 MG/100 ML BAG IV SCH (19:30)
[2020-07-11] MEDS ORDERED: SENNA 8.6 MG TAB PO SCH (21:00)
[2020-07-11] MEDS ORDERED: CeleBREX 200 MG CAP PO SCH (21:00)
[2020-07-11] MEDS: DOCUSATE SODIUM 100 MG CAP PO SCH (21:14)
[2020-07-11] MEDS: ASPIRIN 81 MG ECTAB PO SCH (21:14)
[2020-07-12] MEDS: Scopolamine CHECK PATCH PLACEMENT SCH ×2 (00:30→08:11)
[2020-07-12] MEDS: SODIUM CHLORIDE 0.9% 1000ML 1,000 ML IV SCH (00:33)
[2020-07-12] MEDS ORDERED: diphenhydrAMINE Capsule 25 MG CAP PO PRN (00:56)
[2020-07-12] MEDS ORDERED: ceFAZolin 2000MG 2,000 MG/15 ML SYR IV SCH (01:00)
[2020-07-12 01:19] LABS: Hematocrit (blood only) 35.7 % (37-47); Hemoglobin 12.1 g/dL (12.0-16.0); Mean Corpuscular Hgb Conc 33.9 g/dL (32-36); Mean Corpuscular Volume 88.4 fL (80-100); Mean Platelet Volume 10.1 fL (7.4-10.4); Platelet Count 213 K/uL (130-400); RDW Standard Deviation 42.1 fL (36.4-46.3); Red Blood Count 4.04 M/uL (4.2-5.4)
[2020-07-12 01:35] LABS: BUN Creatinine Ratio 13.9 (10-20); Calcium 8.7 mg/dl (8.5-10.1); Creatinine Clr Calc Pharmacy 52.4 ml/min; Est GFR (African American) 50.9; Est GFR (Non-African American) 43.9; Potassium 4.4 mmol/L (3.5-5.1)
[2020-07-12] MEDS: KETOROLAC TROMETHAMINE 15 MG/ML VIAL IV SCH ×2 (01:36→08:17)
[2020-07-12 01:38] LABS: Albumin Globulin Ratio 1.2 (0.9-2); Bilirubin,Total 0.4 mg/dl (0.2-1); Globulin 2.6 gm/dl (2.5-4.0); Total Protein 5.6 gm/dl (6.4-8.2)
[2020-07-12] MEDS: ACETAMINOPHEN 500 MG TAB PO SCH ×2 (05:47→13:35)
[2020-07-12] MEDS ORDERED: LEVOTHYROXINE SODIUM 88 MCG TABLET PO SCH (06:30)
[2020-07-12] MEDS ORDERED: dexAMETHasone 4 MG TAB PO SCH (08:00)
[2020-07-12] MEDS: ASPIRIN 81 MG ECTAB PO SCH (08:13)
[2020-07-12] MEDS: DOCUSATE SODIUM 100 MG CAP PO SCH (08:14)
[2020-07-12] MEDS ORDERED: MULTIVITAMIN TAB PO SCH (09:00)
[2020-07-12] MEDS ORDERED: PANTOprazole 40 MG TAB PO SCH (09:00)
[2020-07-12] MEDS ORDERED: CITALOPRAM 20 MG TAB PO SCH (09:00)
[2020-07-12] MEDS ORDERED: LETROZOLE 2.5 MG TAB PO SCH (09:00)
--- NOTE | 2020-07-12 09:39 | Orthopedic Progress Note ---
Date of Service July 12, 2020 Assessment & Plan (1) S/P total knee arthroplasty: Weightbearing as tolerated On the left lower extremity with walker assistance PT/OT Keep Silverlon dressing intact Immobilizer use for first 48 hours postoperatively Ice with EZ wrap Pain control with p.o. medications DVT prophylaxis with MEREDITH stockings and aspirin twice daily Plan on discharge home after lunch today with in-home therapy for the first 2 weeks Follow-up with [facility] orthopedics as previously scheduled With questions contact our clinic at [phone] Admission and Anticipated Discharge Date Admission Date: July 11, 2020 Subjective This 60-year-old female is seen today. She is day 1 status post left total knee arthroplasty. Patient states that she is doing very well. She states that her pain is very minimal. She has been able to transition from her bed to the bathroom without difficulty since yesterday. She states that she is ready to go home and has plans of doing in-home therapy after speaking with case management. Currently she denies chest pain, shortness of breath, fever, chills, sweats, lethargy, nausea, vomiting or pain in her left knee area. Review of Systems Review of Systems: All systems reviewed & are unremarkable except as noted in Subjective Physical Exam Physical Exam: Left lower extremity: Active range of motion is from 0 to 108 degrees. Quad strength is 3 out of 5. Patient is able to actively perform a straight leg raise test. She is able to actively dorsi and plantarflex her foot without difficulty. There is some mild edema but no erythema, ecchymosis, warmth or palpable deformity. Her dressing is clean dry and intact with no appreciable drainage on the Silverlon. Her calf is soft and supple nontender to palpation. She is able to detect light sensation to touch around the incision site. Patient is neurovascularly intact in left lower extremity. Results & Data ([facility]) Vital Signs (Past 12 Hours) Vital Signs Temp Pulse Resp BP Pulse Ox 07/12/20 07:10 36.6 C 53 L 16 108/58 L 95 07/12/20 04:50 109/62 07/12/20 03:58 100/55 L 07/12/20 03:20 84/44 L 07/12/20 03:16 36.7 C 56 L 16 75/38 L 92 07/11/20 23:35 36.9 C 61 16 100/55 L 92 Laboratory Results 07/12/20 07/12/20 Range/Units 01:08 01:08 WBC 11.20 H (4.8-10.8) K/uL RBC 4.04 L (4.2-5.4) M/uL Hgb 12.1 (12.0-16.0) g/dL Hct 35.7 L (37-47) % MCV 88.4 (80-100) fL MCH 30.0 (25-34) pg MCHC 33.9 (32-36) g/dL RDW Std Deviation 42.1 (36.4-46.3) fL RDW Coeff of Joanna 13.0 (11.5-14.5) % Plt Count 213 (130-400) K/uL MPV 10.1 (7.4-10.4) fL Sodium 141 (136-145) mmol/L Potassium 4.4 (3.5-5.1) mmol/L Chloride 111 H (98-107) mmol/L Carbon Dioxide 26 (21-32) mmol/L Anion Gap 4.0 (3-11) BUN 18 (7-18) mg/dl Creatinine 1.30 H (0.6-1.2) mg/dl Est Cr Clr Drug Dosing 52.4 ml/min Est GFR ( Amer) 50.9 Est GFR (Non-Af Amer) 43.9 BUN/Creatinine Ratio 13.9 (10-20) Glucose 208 H (70-99) mg/dl Calcium 8.7 (8.5-10.1) mg/dl Total Bilirubin 0.4 (0.2-1) mg/dl AST 31 (15-37) U/L ALT 37 (12-78) U/L Alkaline Phosphatase 69 (45-117) U/L Total Protein 5.6 L (6.4-8.2) gm/dl Albumin 3.0 L (3.4-5.0) gm/dl Globulin 2.6 (2.5-4.0) gm/dl Albumin/Globulin Ratio 1.2 (0.9-2)
--- NOTE | 2020-07-12 09:40 | Discharge Summary ---
Date of Service July 12, 2020 Admission HPI Per Admitting Provider History of Present Illness (including history relevant to procedure): This 60-year-old female presents the clinic today for preoperative history and physical. The patient has had issues with her left knee dating back to when she was in her 20s. She says about 7 years ago was when her symptoms started really worsening. Now, it is to the point where she is having difficulty walking, sitting, or even sleeping. She points to the medial aspect of her knee and anterior aspect of the knee as where she feels most of the pain. Occasionally, she will feel posterior knee pain. She has been taking this and this has been helping somewhat. Denies any numbness or tingling. She is getting a lot of mechanical symptoms; popping, catching, and clicking. Patient is failed conservative management with the use of nonsteroidal agents, injections and physical therapy. Patient was initially scheduled for this procedure on June 06, 2020, however it was canceled due to the operating room at the [facility] being closed due to the COVID-19 pandemic upswing. Review Of Systems: A 14 point review of systems performed is unremarkable except for those things stated in the HPI Past Medical History: Problems: Left knee DJD Preop examination Left knee pain Anxiety/depression Hypothyroidism GERD Hiatal hernia Breast cancer Procedure History Procedure Procedure Date Comments Breast cancer surgery section x2 2017 1985 &1991 Allergies and Sensitivities: Bee stings(Anaphylaxis) sulfa drugs(Persistent redness of skin) ibuprofen(scatchy throat, hives) Social history: Completely unremarkable Family history: Stroke Current Home Meds: (Last Updated 07/04 10:21) acetaminophen (Tylenol) 500 mg PO with meloxicam ciprofloxacin (Cipro 500 mg oral tablet) 500 mg PO q12h citalopram (citalopram 20 mg oral tablet) Responsible Provider: TAMIE BURNS 01/25 10:20 diclofenac topical (Voltaren 1% topical gel) 1 appl topical qid PRN: Pain 4g to affected area 4 times a day letrozole (letrozole 2.5 mg oral tablet) Responsible Provider: CAROLE SHEN 01/25 10:20 levothyroxine (levothyroxine 88 mcg (0.088 mg) oral tablet) Responsible Pro vider: JUANCHO ESPINOZA 01/25 10:20 omeprazole (omeprazole 20 mg oral delayed release capsule) 20 Unknown, Oral sodium hyaluronate (Euflexxa 10 mg/mL intra-articular solution) 25 mg intra- articular q7days Initial Wt: 07/04 90.0 kg 198 lb Admission Exam Per Admitting Provider Physical Exam: (relevant to the procedure, including heart and lung evaluation) General: Alert and oriented x3 with proper grooming and hygiene Eyes: Pupils are equal and reactive to light with accommodation. Extraocular movements are intact Throat: Deferred due to COVID-19 precautions Cardiac: Regular rate and rhythm no murmurs or gallops appreciated Lungs: Clear to auscultation throughout no wheezing, rales or rhonchi Abdomen: Mildly obese, nondistended, nontender, normal active bowel sounds Extremities: Left knee; Trace effusion. Tender to palpation along the medial more than lateral joint lines. Also severely tender along the patellofemoral joint. Range of motion is from 3 degrees up to 120 degrees. Neuro: Alert and oriented x3 appropriate hygiene Skin: Normal in appearance no open skin areas or discharge Principal Diagnosis Left knee osteoarthritis Discharge Exam Left lower extremity: Active range of motion is from 0 to 108 degrees. Quad strength is 3 out of 5. Patient is able to actively perform a straight leg raise test. She is able to actively dorsi and plantarflex her foot without dif ficulty. There is some mild edema but no erythema, ecchymosis, warmth or palpable deformity. Her dressing is clean dry and intact with no appreciable drainage on the Silverlon. Her calf is soft and supple nontender to palpation. She is able to detect light sensation to touch around the incision site. Patient is neurovascularly intact in left lower extremity. Discharge Data Allergies Allergy/AdvReac Type Severity Reaction Status Date / Time bee venom protein (honey bee) Allergy Intermediate THROAT Verified 07/11/20 07:53 SWELLING ibuprofen Allergy Intermediate Hives Unverified 07/11/20 07:53 Sulfa (Sulfonamide Allergy Intermediate Hives Unverified 07/11/20 07:53 Antibiotics) Procedures Performed Operation Date: 07/11/20 10:05 Actual Procedures p Left Total Knee Arthroplasty(Left) - Dionte Agudelo MD Ordered Studies 07/11/20 05:00 US - OR guided needle placemen Routine Hospital Course (1) S/P total knee arthroplasty: Patient had an uneventful stay overnight. She is doing very well with very minimal pain. She states that she is ready to be discharged home soon as possible. She plans on doing in-home therapy with [facility] [place]. Patient is very appreciative of the care that she received while in the hospital. If she has questions or concerns she will contact our clinic otherwise we will follow-up with her in 2 weeks. Weightbearing as tolerated On the left lower extremity with walker assistance PT/OT Keep Silverlon dressing intact Immobilizer use for first 48 hours postoperatively Ice with EZ wrap Pain control with p.o. medications DVT prophylaxis with MEREDITH stockings and aspirin twice daily Plan on discharge home after lunch today with in-home therapy for the first 2 weeks Follow-up with [facility] orthopedics as previously scheduled With questions contact our clinic at [phone] Total Time Total Time Spent Total Time Spent (In Minutes): 20 Total Time Includes: Examination of the Patient, Discharge Planning and Medication Reconciliation Discharge Plan Discharge Items Patient Disposition: Home - Home Health Services Reason For Visit: Left Knee Osteoarthritis Discharge Diagnosis: Left knee osteoarthritis Activity: As commented below Lifting: None Bathing: Keep incision dry Bathing Comment: May shower tomorrow Sexual Activity: Wait until after follow-up appointment Exercise/Sports: Wait until after follow-up appointment Driving/Machine Use: No driving until cleared by recreation specialist Weightbearing: Left weightbearing Weightbearing Comment: as tolerated with walker and immobilizer for first 48 hrs Non-emergency contact: Primary Care Provider Call non-emergency contact if: you have any medication questions, your pain is not controlled, your temperature is above 101.5, your wound has increased drainage and your wound pain has increased Follow-up/Referrals: Tamie Burns PA-C [Primary Care Provider] - Diet: Regular Addtl Attending Provider Instructions: Post-operative Instructions Dear Patient and Family/Friends, Before you are discharged from the hospital, it is important to know what to expect when you get home after surgery. To that end, we have created this sheet of discharge instructions which covers many commonly asked questions. Make sure you go through this sheet in its entirety with your nurse before you are dischar miya. Please note that we will go over the specifics of your surgery and recovery when you return for your first post-operative visit. Sincerely, Dr. Herickhoff Medications 1. Oxycodone 5 mg: take 1-2 tabs by mouth every 4-6 hours as needed for pain relief. A prescription for this medication will be sent to your pharmacy. 2. Diclofenac Sodium 75 mg: take 1 tab twice daily for 30 days post operatively for pain and inflammation relief. This will be sent to your pharmacy with 1 refill. 3. Aspirin 81 mg: take 1 tab twice daily for 30 days post operatively for blood clot prevention. Please purchase. 4. Extra Strength Tylenol 500mg: take 2 tabs every 6-8 hours as needed for pain relief. Please purchase. Pain Expect to be in a fair amount of pain after surgery. Remember, our goal is not to eliminate your pain, but to make it tolerable. It is a good idea to stay ahead of your pain by taking the medications you were prescribed once you get home. Typically, the pain starts improving 3-7 days after surgery. You should start weaning off the narcotic pain medication (oxycodone, hydrocodone, hydromorphone, morphine) as soon as your pain improves. Please call our office if your pain is not adequately controlled. Ice Ice your operative site at least 5 times a day for 15-30 minutes at a time. Make sure you have a thin cloth between the ice or cooling unit and your skin to prevent blank bite. This is especially important if you received a nerve block. Continue icing your operative site for the first 5-7 days after surgery, then as needed. Diet/Nausea/Vomiting Start by drinking clear liquids and eating crackers. If you can tolerate this, then you may resume your normal diet. If you feel nauseated or vomit, take Zofran/ondansetron (if prescribed). Please call our office if you have intractable nausea or vomiting, or, if after hours, you may go to the Emergency Room for help. Constipation Constipation is a common side effect of narcotic pain medication. If you have not had a bowel movement within 2 days after surgery, we recommend purchasing an over the counter laxative such as Milk of Magnesia, Dulcolax, or Miralax from a local pharmacy, and taking it as instructed. Call our clinic if any questions. Slings and Braces If you were placed in a sling or brace, it must be worn at all times, including sleep. You may remove your sling or brace for physical therapy, home exercises, and showering. The length of time you will be in your brace and range of motion restrictions depends on what surgery you had; these details will be reviewed at your first post-operative appointment. Nerve block The anesthesia team sometimes places a nerve block to help with post-operative pain control. This results in significant numbness and inability to move the extremity. The nerve block usually wears off in 8-12 hours, but sometimes can last up to 24 hours. Please call our office if you are still unable to move your extremity after 24 hours, unless you received a pain pump to take home. Nerve blocks typically wear off quickly, so start taking pain medication as soon as you start feeling soreness near your surgical site. Weight bearing and Range of Motion. Do not bear any weight through your operative extremity immediately after surgery. If you had upper extremity surgery, do not lift anything with that arm. If you are in a knee brace, keep it locked in place until your follow-up. We will discuss your weight bearing, range of motion, and lifting restrictions in detail at your first post-operative appointment. Continuous Passive Motion (CPM) Machine If you were prescribed a CPM machine, it will start after your first post- operative appointment, at which time we will give you instructions on the range of motion settings and duration of treatment Physical therapy You will be given a prescription for physical therapy or occupational therapy at your first post-operative appointment. Typically, patients start therapy within 1 week of surgery Wound care and showering We will inspect your wound at your first post-operative visit, and may do a dressing change at that time. Most patients will be in a water-proof dressing that is removed 14 days after surgery. It is normal to see some dried blood on the dressing. Do not remove your dressing, paper strips or sutures yourself unless you are given permission. Showering is allowed the day after surgery. Do not scrub or remove any dressings. The wound should not be submerged underwater (i.e. in a bathtub or pool) until 4 weeks after surgery MEREDITH stockings If you were given white stockings, these are to be worn at all times except to shower (on both legs) for the first 2 weeks after surgery. Driving You may not drive while taking narcotic pain medication or while in a cast, splint, sling or brace. You, the patient, need to make the final determination about when you are safe to drive, however, the earliest you may consider driving after surgery is below: Hand/Wrist/Elbow Surgery: 3 days Shoulder Surgery: 2 weeks Hip,/Knee/Ankle Surgery: 4 weeks Fracture repair: 6 weeks Return to Work Your return to work depends on what surgery was done and what type of work you do. Please bring any paperwork your employer needs completed to your first post-operative visit. Also, bring a description of your job duties, as this helps us to understand what risks you may face at work. Travel Avoid long distance travel (greater than 1 hour) in airplanes and cars for the first 6 weeks after surgery. If you must travel, you need to have a Doppler ultrasound done before you travel to rule out a blood clot in your legs. Follow-up You should have a follow-up appointment already scheduled 1-2 days after surgery. If not, please contact our office to make this appointment before you leave the hospital. When to call the office It is normal to have swelling and bruising in the limb that was operated on. This will improve with time. It is also normal to have fevers for the first 2 days after surgery. Reasons you should call your doctor include: Uncontrolled pain; Nausea, vomiting, or constipation that does not improve with medication; Fevers over 101.5, chills, sweats; Drainage or bleeding from the wound; Foul odor; Spreading areas of redness; Any other concerns Pending Studies at Discharge: No Stand-Alone Forms: [facility] Medications and DC Order Prescriptions: New oxycodone 5 mg tablet 5 mg PO Q6H Qty: 30 RF: 0 diclofenac sodium 75 mg tablet,delayed release (DR/EC) 75 mg PO BID Qty: 60 RF: 1 Continued levothyroxine 88 mcg tablet 88 mcg PO QAM RF: 0 citalopram 20 mg tablet 20 mg PO QAM RF: 0 omeprazole 20 mg Capsule,Delayed Release(Dr/Ec) 20 mg PO QAM RF: 0 letrozole 2.5 mg tablet 2.5 mg PO QAM RF: 0 diphenhydramine HCl [Benadryl] 25 mg Capsule 25 mg PO UD PRN (Reason: BEE STINGS) RF: 0 epinephrine 0.3 mg/0.3 mL Auto-Injector 0.3 mg IM UD PRN (Reason: BEE STINGS) RF: 0 Discharge Orders: Discharge Order (Routine); Ordered 07/12/20 Ordered By: Guru Cardona Admission Data Admit Date/Time: 07/11/20 13:29 Attending Provider: Dionte Agudelo Admit Provider: Dionte Agudelo Primary Care Provider: Tamie Burns Other Providers: [facility]
[2020-07-12] MEDS: oxyCODONE HCL IR 5 MG TAB (IMMEDIATE RELEASE) PO PRN ×2 (11:02→11:59)
== END 2020-07-12 14:32 | disposition home health service (06) ==
LOC: ASU 07:25 → 3E 07:25

== ENCOUNTER 2021-09-14 15:48 | Inpatient (IN) ==
[2021-09-14] MEDS ORDERED: HYDROCODONE/ACETAMOPHEN 5/325MG TAB PO STA (16:19)
--- NOTE | 2021-09-14 17:23 | Ultrasound Report ---
ULTRASOUND LEFT LOWER EXTREMITY VENOUS CLINICAL HISTORY: Left leg pain. COMPARISON STUDY: No priors TECHNIQUE: Real-time, grayscale, and color Doppler sonography of the deep veins of the left lower ext remity was performed from the inguinal crease to the calf. Compression and augmentation were utilized . FINDINGS: There is extensive acute deep venous thrombosis seen extending from the left common femoral vein throughout the superficial femoral vein, and in the popliteal vein. This is nearly occlusive to occlusive. Superficial venous thrombus is seen throughout the greater saphenous vein and in the prof unda femoris vein. The visualized calf veins are patent. IMPRESSION: 1. Extensive nearly occlusive to occlusive acute deep venous thrombosis is seen throughout the left l ower extremity as above. 2. Superficial venous thrombus seen within the greater saphenous and profunda femoris veins.. ACT 112: Negative or not required by law. Electronically signed by: Philipp Lee M.D. 09/14/2021 5:22 PM
--- NOTE | 2021-09-14 17:33 | XRay Report ---
LUMBAR SPINE 5 VIEWS CLINICAL HISTORY: Low back pain. FINDINGS: 5 views of the lumbar spine are obtained. No prior studies are available for comparison at the time of dictation. The skeletal structures are osteopenic. There is no radiographic evidence of fracture or malalignment. Vertebral body height and alignment are maintained. The transverse and spin ous processes are intact. Small anterior and lateral marginal osteophytes are seen throughout. There is no evidence of spondylolysis. There is moderate disc space narrowing at L5-S1 with associated endp late sclerosis and a posterior disc osteophyte complex. Only mild disc space narrowing is noted at th e remaining lumbar levels . The visualized bony pelvis appears intact. There is a nonobstructed abdom inal bowel gas pattern. IMPRESSION: 1. No acute bony abnormality is seen involving the lumbar spine. 2. Osteopenia and mild spondylotic change as above ACT 112: Negative or not required by law. Electronically signed by: Philipp Lee M.D. 09/14/2021 5:31 PM
--- NOTE | 2021-09-14 17:34 | XRay Report ---
SINGLE VIEW PELVIS; 2 VIEWS LEFT HIP CLINICAL HISTORY: Left hip pain. FINDINGS: An AP view of the pelvis with AP and frog-leg views of the left hip are obtained. No prior studies are available for comparison at the time of dictation. The skeletal structures are osteopenic . There is no radiographic evidence of acute fracture involving the hips or bony pelvis. Only mild de generative joint space narrowing is noted in the hips. The sacroiliac joints are normal. Tiny entheso phytes arise from the anterior superior iliac spines. The overlying soft tissues are within normal li mits. IMPRESSION: No acute bony abnormality is identified. Electronically signed by: Philipp Lee M.D. 09/14/2021 5:32 PM
[2021-09-14 18:07] LABS: Basophils # (auto) 0.02 K/uL (0-0.2); Basophils % (auto) 0.1 %; Eosinophils # (auto) 0.04 K/uL (0-0.5); Eosinophils % (auto) 0.3 %; Hematocrit (blood only) 41.4 % (37-47); Immature Granulocytes # (auto) 0.03 K/uL (0.00-0.02); Immature Granulocytes % (auto) 0.2 %; Lymphocytes # (auto) 1.16 K/uL (1.2-3.4); Lymphocytes % (auto) 8.1 %; Mean Corpuscular Hemoglobin 30.7 pg (25-34); Mean Corpuscular Hgb Conc 33.8 g/dL (32-36); Mean Corpuscular Volume 90.8 fL (80-100); Mean Platelet Volume 10.9 fL (7.4-10.4); Neutrophils # (auto) 12.06 K/uL (1.4-6.5); Neutrophils % (auto) 84.3 %; Platelet Count 171 K/uL (130-400); RDW Coefficient of Variation 13.8 % (11.5-14.5); RDW Standard Deviation 45.8 fL (36.4-46.3); Red Blood Count 4.56 M/uL (4.2-5.4); White Blood Count 14.31 K/uL (4.8-10.8)
[2021-09-14 18:17] LABS: Partial Thromboplastin Ratio 0.9; Partial Thromboplastin Time 23.7 Seconds (21.0-31.0); Prothrombin Time 10.8 Seconds (9.0-12.0)
[2021-09-14 18:37] LABS: Albumin Globulin Ratio 1.6 (0.9-2); Albumin Level 4.1 gm/dl (3.4-5.0); BUN Creatinine Ratio 15.2 (10-20); Bilirubin,Total 1.2 mg/dl (0.2-1.0); Creatinine Clr Calc Pharmacy 71.6 ml/min; Est GFR (African American) 76.8 ml/min; Est GFR (Non-African American) 66.3 ml/min; Globulin 2.6 gm/dl (2.5-4.0); Potassium 4.2 mmol/L (3.5-5.1); Total Protein 6.7 gm/dl (6.0-8.3)
[2021-09-14] MEDS ORDERED: OPTIRAY 320 125ml IV ONE (18:48)
--- NOTE | 2021-09-14 19:45 | CT Scan Report ---
CT ANGIOGRAM OF THE CHEST CLINICAL HISTORY: Deep venous thrombosis. Reported history of breast cancer COMPARISON STUDY: Chest CT dated 10/03/2014. TECHNIQUE: Following the IV administration of 119 cc of Optiray 320, CT angiogram of the chest was pe rformed from the upper abdomen to the thoracic inlet utilizing the pulmonary embolus protocol. Images are reviewed in the axial, sagittal, and coronal planes. 3-D MIPS images are created and assessed. I V contrast was administered without complication. A dose lowering technique was utilized adhering to the principles of ALARA. CT DOSE: 322.23 mGy.cm FINDINGS: Thyroid: Imaged portions of the thyroid gland are normal in size and attenuation. Thoracic aorta: The thoracic aorta is normal in caliber and demonstrates standard 3-vessel arch anato my. No dissection is seen. Pulmonary vasculature: The pulmonary trunk is normal in caliber. There is a segmental pulmonary embol us within a branch of the right upper lobe pulmonary artery seen on image #168. A subsegmental pulmon dana embolus is seen within a branch of the right lower lobe pulmonary artery on image #103. No additi onal pulmonary emboli are clearly identified. Evaluation of the left lower lobe vessels is degraded b y motion artifact. Heart: The heart is normal in size and without pericardial effusion. Lungs and pleural spaces: Evaluation of the lung parenchyma is modestly degraded by motion artifact. No airspace consolidation or pleural effusion is identified. Scarring/atelectasis is noted at the jh g bases. Mediastinum: There is no mediastinal lymphadenopathy. Kim: Clear. Axillae: There is no axillary lymphadenopathy. Upper abdomen: There is a moderate hiatal hernia. The liver appears steatotic. The calcified granulom as noted in the hepatic dome. Skeletal structures: No lytic or blastic bony lesions are seen. IMPRESSION: 1. Segmental and subsegmental pulmonary emboli are seen within branches of the right upper and right lower lobe pulmonary arteries as above. 2. There is no airspace consolidation or pleural effusion. 3. Moderate hiatal hernia. 4. Hepatic steatosis. ACT 112: Negative or not required by law. Electronically signed by: Philipp Lee M.D. 09/14/2021 7:43 PM
[2021-09-14] MEDS ORDERED: Heparin IV Adult Wt-Based Standard WITH Bolus Protocol IV SCH (20:07)
--- NOTE | 2021-09-14 20:12 | History & Physical Report ---
Date of Service September 14, 2021 Assessment & Plan (1) DVT (deep venous thrombosis): (2) Acute pulmonary embolism: Plan: Acute DVT LLE/PE- 1st episode, hemodynamically stable, saturating well in room air. Likely provoked, in setting of being on tamoxifen, with h/o malignancy and travel. LLE US with extensive nearly occlusive to occlusive acute DVT of LLE and superficial venous thrombus of greater saphenous and profunda femoris veins. CT chest with segmental and subsegmental PE in branches of right upper and right lower pulm arteries. - Will start on heparin drip. Switch to DOAC when feasible. Leucocytosis- likely reactive from above. Recheck in am. No evidence of infection, no indication for antibiotics currently. GERD- continue PPI Depression- continue prozac Hypothyroidism- continue synthroid H/o left breast cancer s/p mastectomy and radiation- now on tamoxifen. Will hold tamoxifen. Recommend talking to his oncologist regarding tamoxifen switch H/o left TKA 07/2020 followed by left knee arthrosopy and synovectomy 07/2021 DVT prophylaxis- Heparin drip Dispo- Medsurg Updated at bedside and answered all the questions. History of Present Illness Chief Complaint: LLE pain and swelling Primary Care Provider: Mary Arcos MD 61 year old female with history of left breast cancer s/p mastectomy and radiation currently on tamoxifen, left TKR, GERD, hypothyroidism, depression who presented to the ED with left groin pain. She has h/o left TKR 07/2020 followed by left knee arthroscopy and synovectomy on 07/2021. 3 weeks back while driving to [place] her leg was hanging and she noticed left leg swelling. She saw her PCP and was advised compression stocking which helped the swelling. 2 days back while working in the garden, she thinks she might have pulled her muscle and developed left groin pain for which she came to the ED today. In the ED, LLE US showed extensive acute DVT. Subsequent CTA chest showed right sided PE. She is afebrile, hemodynamically stable. No tachycardia. Saturating well in room air. Endorses some left calf heaviness with walking but no dyspnea, chest pain, light headedness dizziness. No prior h/o VTE. No other malignancy other than breast Ca. Uptodate on age appropriate cancer screening. No h/o hypercoagulability. Still on tamoxifen, states 2 more years left. No bleeding issues in the past. Allergies Allergy/AdvReac Type Severity Reaction Status Date / Time bee venom protein (honey bee) Allergy Intermediate THROAT Verified 07/21/21 07:40 SWELLING ibuprofen Allergy Intermediate Hives Verified 07/21/21 07:40 Sulfa (Sulfonamide Allergy Intermediate Hives Verified 07/21/21 07:40 Antibiotics) Home Medications Medication Instructions Recorded Confirmed Type omeprazole 20 mg capsule,delayed 20 mg PO QAM 12/15/19 07/21/21 History release diphenhydramine HCl 25 mg capsule 25 mg PO UD PRN 04/29/20 07/21/21 History (Benadryl) epinephrine 0.3 mg/0.3 mL 0.3 mg IM UD PRN 04/29/20 07/21/21 History injection, auto-injector cetirizine 10 mg tablet 10 mg PO QAM 07/17/21 07/21/21 History fluoxetine 20 mg capsule 20 mg PO QAM 07/17/21 07/21/21 History levothyroxine 88 mcg capsule 88 mcg PO QAM 07/17/21 07/21/21 History ondansetron 8 mg disintegrating 8 mg PO Q8H PRN 07/17/21 07/21/21 History tablet tamoxifen 20 mg tablet 20 mg PO QAM 07/17/21 07/21/21 History topiramate 50 mg tablet 50 mg PO QAM 07/17/21 07/21/21 History Past Med/Surg History Medical History Breast cancer (06/02/16) 2017, Invasive carcinoma of L breast, s/p lumpectomy and radiation. Chest pain ON RECORD-PT DENIES ANY RECENT CHEST PAIN Depression DVT (deep venous thrombosis) Extensive left leg DVT after left knee arthroscopy Fatty liver GERD (gastroesophageal reflux disease) Headache HX-CAUSED BY PINCHED NERVE IN NECK Hiatal hernia Pulmonary embolism Segmental and subsegmental pulmonary emboli after left knee arthroscopy Thyroid disease Hypothyroidism Surgical History History of 2 sections History of anesthesia reaction 1991 - Awareness during C/S after gas/mask induction. Eyes were closed but she could hear everything. Does not recall having spinal, but recalls only feeling pressure during procedure. History of colonoscopy History of esophagogastroduodenoscopy (EGD) History of lumpectomy of left breast WITH LYMPH NODES History of total knee replacement Family History Other No family history of adverse response to anesthesia Social History Smoking Status: Never smoker Second Hand Exposure: No; Hx Alcohol Use: No Hx Substance Use: No Preferred Language: Italian Communication Ability: Effective Advertising Assistant Manager Required: No Beliefs That Will Affect Care: Pentecostal Pentecostal Beliefs: PENTECOSTAL marital status: Current Living Situation: Spouse current occupational status: employed current occupation: [employer] Feels Safe at Home: Yes Assistive Devices: Contacts and Glasses Review of Systems Review of Systems: All systems reviewed & are unremarkable except as noted in Subjective Physical Exam Physical Exam: General: Lying comfortably in bed, not in distress, on room air HEENT: EOMI, ASHLEY, MMM Chest: Clear breath sounds bilaterally, no wheezes or crackles CVS: Regular rate and rhythm, normal heart sounds, no murmur Abdomen: Soft, non tender, not distended, normal bowel sounds Neuro: Awake, alert, oriented, conversing well, non focal Extremities: No cyanosis, clubbing, LLE swelling Results & Data Results & Data ([facility]) Vital Signs (Past 12 Hours) Vital Signs Temp Pulse Pulse Resp BP BP Pulse Ox 09/14/21 19:00 67 21 118/68 95 09/14/21 17:48 77 20 130/70 97 09/14/21 15:52 36.8 C 94 H 20 107/69 95 Laboratory Results Short CBC 09/14/21 Range/Units 17:52 WBC 14.31 H (4.8-10.8) K/uL Hgb 14.0 (12.0-16.0) g/dL Hct 41.4 (37-47) % Plt Count 171 (130-400) K/uL BMP 09/14/21 17:52 Sodium 139 Potassium 4.2 Chloride 109 H Carbon Dioxide 22 BUN 14 Creatinine 0.92 Glucose 130 H Calcium 9.0 Liver Function 09/14/21 Range/Units 17:52 Total Bilirubin 1.2 H (0.2-1.0) mg/dl AST 26 (13-39) U/L ALT 26 (7-52) U/L Alkaline Phosphatase 67 (34-104) U/L Albumin 4.1 (3.4-5.0) gm/dl Diagnostic Findings Hip/Pelvis X-Ray 09/14/21 16:18 SINGLE VIEW PELVIS; 2 VIEWS LEFT HIP CLINICAL HISTORY: Left hip pain. FINDINGS: An AP view of the pelvis with AP and frog-leg views of the left hip are obtained. No prior studies are available for comparison at the time of dictation. The skeletal structures are osteopenic. There is no radiographic evidence of acute fracture involving the hips or bony pelvis. Only mild degenerative joint space narrowing is noted in the hips. The sacroiliac joints are normal. Tiny enthesophytes arise from the anterior superior iliac spines. The overlying soft tissues are within normal limits. IMPRESSION: No acute bony abnormality is identified. Electronically signed by: Philipp Lee M.D. 09/14/2021 5:32 PM Lumbar Spine X-Ray 09/14/21 16:18 LUMBAR SPINE 5 VIEWS CLINICAL HISTORY: Low back pain. FINDINGS: 5 views of the lumbar spine are obtained. No prior studies are available for comparison at the time of dictation. The skeletal structures are osteopenic. There is no radiographic evidence of fracture or malalignment. Vertebral body height and alignment are maintained. The transverse and spinous processes are intact. Small anterior and lateral marginal osteophytes are seen throughout. There is no evidence of spondylolysis. There is moderate disc space narrowing at L5-S1 with associated endplate sclerosis and a posterior disc osteophyte complex. Only mild disc space narrowing is noted at the remaining lumbar levels . The visualized bony pelvis appears intact. There is a nonobstructed abdominal bowel gas pattern. IMPRESSION: 1. No acute bony abnormality is seen involving the lumbar spine. 2. Osteopenia and mild spondylotic change as above ACT 112: Negative or not required by law. Electronically signed by: Philipp Lee M.D. 09/14/2021 5:31 PM Venous Doppler Study 09/14/21 16:18 ULTRASOUND LEFT LOWER EXTREMITY VENOUS CLINICAL HISTORY: Left leg pain. COMPARISON STUDY: No priors TECHNIQUE: Real-time, grayscale, and color Doppler sonography of the deep veins of the left lower extremity was performed from the inguinal crease to the calf. Compression and augmentation were utilized. FINDINGS: There is extensive acute deep venous thrombosis seen extending from the left common femoral vein throughout the superficial femoral vein, and in the popliteal vein. This is nearly occlusive to occlusive. Superficial venous thrombus is seen throughout the greater saphenous vein and in the profunda femoris vein. The visualized calf veins are patent. IMPRESSION: 1. Extensive nearly occlusive to occlusive acute deep venous thrombosis is seen throughout the left lower extremity as above. 2. Superficial venous thrombus seen within the greater saphenous and profunda femoris veins.. ACT 112: Negative or not required by law. Electronically signed by: Philipp Lee M.D. 09/14/2021 5:22 PM Chest CTA 09/14/21 17:35 CT ANGIOGRAM OF THE CHEST CLINICAL HISTORY: Deep venous thrombosis. Reported history of breast cancer COMPARISON STUDY: Chest CT dated 10/03/2014. TECHNIQUE: Following the IV administration of 119 cc of Optiray 320, CT angiogram of the chest was performed from the upper abdomen to the thoracic inlet utilizing the pulmonary embolus protocol. Images are reviewed in the axial, sagittal, and coronal planes. 3-D MIPS images are created and assessed. IV contrast was administered without complication. A dose lowering technique was utilized adhering to the principles of ALARA. CT DOSE: 322.23 mGy.cm FINDINGS: Thyroid: Imaged portions of the thyroid gland are normal in size and attenuation. Thoracic aorta: The thoracic aorta is normal in caliber and demonstrates standard 3-vessel arch anatomy. No dissection is seen. Pulmonary vasculature: The pulmonary trunk is normal in caliber. There is a segmental pulmonary embolus within a branch of the right upper lobe pulmonary artery seen on image #168. A subsegmental pulmonary embolus is seen within a branch of the right lower lobe pulmonary artery on image #103. No additional pulmonary emboli are clearly identified. Evaluation of the left lower lobe vessels is degraded by motion artifact. Heart: The heart is normal in size and without pericardial effusion. Lungs and pleural spaces: Evaluation of the lung parenchyma is modestly degraded by motion artifact. No airspace consolidation or pleural effusion is identified. Scarring/atelectasis is noted at the lung bases. Mediastinum: There is no mediastinal lymphadenopathy. Kim: Clear. Axillae: There is no axillary lymphadenopathy. Upper abdomen: There is a moderate hiatal hernia. The liver appears steatotic. The calcified granulomas noted in the hepatic dome. Skeletal structures: No lytic or blastic bony lesions are seen. IMPRESSION: 1. Segmental and subsegmental pulmonary emboli are seen within branches of the right upper and right lower lobe pulmonary arteries as above. 2. There is no airspace consolidation or pleural effusion. 3. Moderate hiatal hernia. 4. Hepatic steatosis. ACT 112: Negative or not required by law. Electronically signed by: Philipp Lee M.D. 09/14/2021 7:43 PM (1) DVT (deep venous thrombosis) Affected thrombotic vein of extremity: unspecified vein of extremity Chronicity: acute DVT location: lower extremity Laterality: left Qualified Code(s): I82.402 - Acute embolism and thrombosis of unspecified deep veins of left lower extremity (2) Acute pulmonary embolism Acute cor pulmonale presence: unspecified Pulmonary embolism type: other Qualified Code(s): I26.99 - Other pulmonary embolism without acute cor pulmonale
--- NOTE | 2021-09-14 20:41 | Emergency Department Note ---
History of Present Illness General Chief complaint: Leg Injury/Pain Stated complaint: PAIN DOWN BACK OF L LEG Time Seen by Provider: 09/14/21 16:11 History of Present Illness Maximum Pain Intensity: 7 This is a 61-year-old female presenting to the emergency department for evaluation of pain in her left hip that is also in the back of her left leg. The patient has a history of recent left knee surgery, where she had arthroscopy and synovectomy by Dr. Agudelo on 07/21/2021, roughly 7 weeks ago. The patient feels like she has been recovering well from that procedure, and has had some intermittent swelling off and on. She additionally has a past history of breast cancer and is on tamoxifen. She has not had any fevers or chills. No chest pain, chest tightness, or shortness of breath. No back pain is reported. She feels like she is able to move the leg as normal. She has not taken anything [id number] for symptoms. She did travel to and from [facility] 3 weeks ago. She rates her discomfort a 7/10. Home Medications Medication Instructions Recorded Confirmed Type omeprazole 20 mg capsule,delayed 20 mg PO QAM 12/15/19 07/21/21 History release diphenhydramine HCl 25 mg capsule 25 mg PO UD PRN 04/29/20 07/21/21 History (Benadryl) epinephrine 0.3 mg/0.3 mL 0.3 mg IM UD PRN 04/29/20 07/21/21 History injection, auto-injector cetirizine 10 mg tablet 10 mg PO QAM 07/17/21 07/21/21 History fluoxetine 20 mg capsule 20 mg PO QAM 07/17/21 07/21/21 History levothyroxine 88 mcg capsule 88 mcg PO QAM 07/17/21 07/21/21 History ondansetron 8 mg disintegrating 8 mg PO Q8H PRN 07/17/21 07/21/21 History tablet tamoxifen 20 mg tablet 20 mg PO QAM 07/17/21 07/21/21 History topiramate 50 mg tablet 50 mg PO QAM 07/17/21 07/21/21 History Allergies Allergy/AdvReac Type Severity Reaction Status Date / Time bee venom protein (honey bee) Allergy Intermediate THROAT Verified 07/21/21 07:40 SWELLING ibuprofen Allergy Intermediate Hives Verified 07/21/21 07:40 Sulfa (Sulfonamide Allergy Intermediate Hives Verified 07/21/21 07:40 Antibiotics) Past Med/Surg History Medical History Breast cancer (06/02/16) 2017, Invasive carcinoma of L breast, s/p lumpectomy and radiation. Chest pain ON RECORD-PT DENIES ANY RECENT CHEST PAIN Depression DVT (deep venous thrombosis) Extensive left leg DVT after left knee arthroscopy Fatty liver GERD (gastroesophageal reflux disease) Headache HX-CAUSED BY PINCHED NERVE IN NECK Hiatal hernia Pulmonary embolism Segmental and subsegmental pulmonary emboli after left knee arthroscopy Thyroid disease Hypothyroidism Surgical History History of 2 sections History of anesthesia reaction 1992 - Awareness during C/S after gas/mask induction. Eyes were closed but she could hear everything. Does not recall having spinal, but recalls only feeling pressure during procedure. History of colonoscopy History of esophagogastroduodenoscopy (EGD) History of lumpectomy of left breast WITH LYMPH NODES History of total knee replacement Family History Other No family history of adverse response to anesthesia Social History Smoking Status: Never smoker Second Hand Exposure: No; Hx Alcohol Use: No Hx Substance Use: No Preferred Language: Armenian Communication Ability: Effective Tableau Administrator Required: No Beliefs That Will Affect Care: Faith Faith Beliefs: LUTHERAN marital status: Current Living Situation: Spouse current occupational status: employed current occupation: [employer] Feels Safe at Home: Yes Assistive Devices: Contacts and Glasses Review of Systems A total of 10 systems reviewed and were otherwise negative Physical Exam Vital Signs Vital Signs - 24 hr 09/14/21 15:52 09/14/21 17:48 09/14/21 19:00 Temperature 36.8 C Temperature Source Temporal Artery Scan Pulse Rate 94 H 67 Pulse Rate [Finger] 77 Pulse Rate from SpO2 Sensor 67 Respiratory Rate 20 20 21 Respiratory Effort / Characteristics Non-Labored Spontaneous Respiratory Depth Normal Respiratory Pattern Regular Blood Pressure 107/69 118/68 Blood Pressure [Right Arm] 130/70 Blood Pressure Mean 81 84 Blood Pressure Mean [Right Arm] 90 Pulse Oximetry 95 97 95 Oxygen Delivery Method Room Air Room Air Room Air Sepsis Recent Fever Within 48 Hours No Sepsis New/Unexplained Change in Mental Status No Sepsis Action Taken by Nursing No Action Required VITALS: Vitals are noted on the nurse's note and reviewed by myself. Vital signs stable. GENERAL: Well-developed, well-nourished, white female, who is in no acute distress and resting comfortably. Patient is cooperative with the examination. HEAD: Normocephalic atraumatic. HEART: Regular rate and rhythm without murmurs gallops or rubs. LUNGS: Clear to auscultation bilaterally without wheezes, rales or rhonchi. No retractions or accessory muscle use. BACK: No significant thoracic or lumbar tenderness. Negative straight leg raise. No saddle paresthesias. MUSCULOSKELETAL: No muscle atrophy, erythema, or edema noted. Full range of motion in all extremities. Tenderness is reported diffusely throughout the posterior aspect of the left leg into the left groin. Left leg is slightly edematous when compared to the right. No obvious palpable cord is identified. Neurovascular status is intact distally. NEURO: Patient was alert and oriented to person place and time. CN II through XII grossly intact. Course Administered Medications Heparin Sodium/Dextrose (Heparin Sodium/Dextrose) 25,000 units in 500 mls @ 26 mls/hr IV .[id number] [facility]; Protocol Stop: 10/14/21 20:29 Last Admin: 09/14/21 21:17 Dose: 1,300 units/hr, 26 mls/hr Documented by: [id number] Cosigned by: [id number] Discontinued Medications Hydrocodone Bitart/Acetaminophen (Hydrocodone/Acetamophen 5/325mg Tab) 1 tab PO NOW STA Stop: 09/14/21 16:20 Last Admin: 09/14/21 16:57 Dose: 1 tab Documented by: [id number] Ioversol (Optiray 320 125ml) 119 ml IV ONCE ONE Stop: 09/14/21 18:49 Last Admin: 09/14/21 18:48 Dose: 119 ml Documented by: [id number] Medical Decision Making Differential Diagnosis Differential diagnosis: Etiologies such as DVT, vascular ischemia, radiculopathy, fracture, hematoma/contusion, myositis, abscess, septic arthritis cellulitis, joint effusion, trauma, lymphedema, idiopathic, CHF, as well as others were entertained. Laboratory Data Result diagrams: 09/14/21 17:52 09/14/21 17:52 Lab Results 09/14/21 09/14/21 09/14/21 Range/Units 17:52 17:52 17:52 WBC 14.31 H (4.8-10.8) K/uL RBC 4.56 (4.2-5.4) M/uL Hgb 14.0 (12.0-16.0) g/dL Hct 41.4 (37-47) % MCV 90.8 (80-100) fL MCH 30.7 (25-34) pg MCHC 33.8 (32-36) g/dL RDW Std Deviation 45.8 (36.4-46.3) fL RDW Coeff of Joanna 13.8 (11.5-14.5) % Plt Count 171 (130-400) K/uL MPV 10.9 H (7.4-10.4) fL Immature Gran % (Auto) 0.2 % Neut % (Auto) 84.3 % Lymph % (Auto) 8.1 % Kimball % (Auto) 7.0 % Eos % (Auto) 0.3 % Baso % (Auto) 0.1 % Neut # (Auto) 12.06 H (1.4-6.5) K/uL Lymph # (Auto) 1.16 L (1.2-3.4) K/uL Kimball # (Auto) 1.00 H (0.11-0.59) K/uL Eos # (Auto) 0.04 (0-0.5) K/uL Baso # (Auto) 0.02 (0-0.2) K/uL Immature Gran # (Auto) 0.03 H (0.00-0.02) K/uL PT 10.8 (9.0-12.0) Seconds INR 1.0 (0.9-1.1) APTT 23.7 (21.0-31.0) Seconds PTT Ratio 0.9 Sodium 139 (136-145) mmol/L Potassium 4.2 (3.5-5.1) mmol/L Chloride 109 H (98-107) mmol/L Carbon Dioxide 22 (21-32) mmol/L Anion Gap 8 (3-11) BUN 14 (6-23) mg/dl Creatinine 0.92 (0.6-1.2) mg/dl Est Cr Clr Drug Dosing 71.6 ml/min Est GFR ( Amer) 76.8 ml/min Est GFR (Non-Af Amer) 66.3 ml/min BUN/Creatinine Ratio 15.2 (10-20) Glucose 130 H (70-99(Fasting)) mg/dl Calcium 9.0 (8.5-10.1) mg/dl Total Bilirubin 1.2 H (0.2-1.0) mg/dl AST 26 (13-39) U/L ALT 26 (7-52) U/L Alkaline Phosphatase 67 (34-104) U/L Total Protein 6.7 (6.0-8.3) gm/dl Albumin 4.1 (3.4-5.0) gm/dl Globulin 2.6 (2.5-4.0) gm/dl Albumin/Globulin Ratio 1.6 (0.9-2) SARS-CoV-2, RNA, NAAT (NEGATIVE) 09/14/21 Range/Units 18:15 WBC (4.8-10.8) K/uL RBC (4.2-5.4) M/uL Hgb (12.0-16.0) g/dL Hct (37-47) % MCV (80-100) fL MCH (25-34) pg MCHC (32-36) g/dL RDW Std Deviation (36.4-46.3) fL RDW Coeff of Joanna (11.5-14.5) % Plt Count (130-400) K/uL MPV (7.4-10.4) fL Immature Gran % (Auto) % Neut % (Auto) % Lymph % (Auto) % Kimball % (Auto) % Eos % (Auto) % Baso % (Auto) % Neut # (Auto) (1.4-6.5) K/uL Lymph # (Auto) (1.2-3.4) K/uL Kimball # (Auto) (0.11-0.59) K/uL Eos # (Auto) (0-0.5) K/uL Baso # (Auto) (0-0.2) K/uL Immature Gran # (Auto) (0.00-0.02) K/uL PT (9.0-12.0) Seconds INR (0.9-1.1) APTT (21.0-31.0) Seconds PTT Ratio Sodium (136-145) mmol/L Potassium (3.5-5.1) mmol/L Chloride (98-107) mmol/L Carbon Dioxide (21-32) mmol/L Anion Gap (3-11) BUN (6-23) mg/dl Creatinine (0.6-1.2) mg/dl Est Cr Clr Drug Dosing ml/min Est GFR ( Amer) ml/min Est GFR (Non-Af Amer) ml/min BUN/Creatinine Ratio (10-20) Glucose (70-99(Fasting)) mg/dl Calcium (8.5-10.1) mg/dl Total Bilirubin (0.2-1.0) mg/dl AST (13-39) U/L ALT (7-52) U/L Alkaline Phosphatase (34-104) U/L Total Protein (6.0-8.3) gm/dl Albumin (3.4-5.0) gm/dl Globulin (2.5-4.0) gm/dl Albumin/Globulin Ratio (0.9-2) SARS-CoV-2, RNA, NAAT NEGATIVE (NEGATIVE) Imaging Data Radiologist's Impression: Hip/Pelvis X-Ray 09/14/21 16:18 SINGLE VIEW PELVIS; 2 VIEWS LEFT HIP CLINICAL HISTORY: Left hip pain. FINDINGS: An AP view of the pelvis with AP and frog-leg views of the left hip are obtained. No prior studies are available for comparison at the time of dictation. The skeletal structures are osteopenic. There is no radiographic evidence of acute fracture involving the hips or bony pelvis. Only mild degenerative joint space narrowing is noted in the hips. The sacroiliac joints are normal. Tiny enthesophytes arise from the anterior superior iliac spines. The overlying soft tissues are within normal limits. IMPRESSION: No acute bony abnormality is identified. Electronically signed by: Philipp Lee M.D. 09/14/2021 5:32 PM Lumbar Spine X-Ray 09/14/21 16:18 LUMBAR SPINE 5 VIEWS CLINICAL HISTORY: Low back pain. FINDINGS: 5 views of the lumbar spine are obtained. No prior studies are available for comparison at the time of dictation. The skeletal structures are osteopenic. There is no radiographic evidence of fracture or malalignment. Vertebral body height and alignment are maintained. The transverse and spinous processes are intact. Small anterior and lateral marginal osteophytes are seen throughout. There is no evidence of spondylolysis. There is moderate disc space narrowing at L5-S1 with associated endplate sclerosis and a posterior disc osteophyte complex. Only mild disc space narrowing is noted at the remaining lumbar levels . The visualized bony pelvis appears intact. There is a nonobstructed abdominal bowel gas pattern. IMPRESSION: 1. No acute bony abnormality is seen involving the lumbar spine. 2. Osteopenia and mild spondylotic change as above ACT 112: Negative or not required by law. Electronically signed by: Philipp Lee M.D. 09/14/2021 5:31 PM Venous Doppler Study 09/14/21 16:18 ULTRASOUND LEFT LOWER EXTREMITY VENOUS CLINICAL HISTORY: Left leg pain. COMPARISON STUDY: No priors TECHNIQUE: Real-time, grayscale, and color Doppler sonography of the deep veins of the left lower extremity was performed from the inguinal crease to the calf. Compression and augmentation were utilized. FINDINGS: There is extensive acute deep venous thrombosis seen extending from the left common femoral vein throughout the superficial femoral vein, and in the popliteal vein. This is nearly occlusive to occlusive. Superficial venous thrombus is seen throughout the greater saphenous vein and in the profunda femoris vein. The visualized calf veins are patent. IMPRESSION: 1. Extensive nearly occlusive to occlusive acute deep venous thrombosis is seen throughout the left lower extremity as above. 2. Superficial venous thrombus seen within the greater saphenous and profunda femoris veins.. ACT 112: Negative or not required by law. Electronically signed by: Philipp Lee M.D. 09/14/2021 5:22 PM Chest CTA 09/14/21 17:35 CT ANGIOGRAM OF THE CHEST CLINICAL HISTORY: Deep venous thrombosis. Reported history of breast cancer COMPARISON STUDY: Chest CT dated 10/03/2014. TECHNIQUE: Following the IV administration of 119 cc of Optiray 320, CT angiogram of the chest was performed from the upper abdomen to the thoracic inlet utilizing the pulmonary embolus protocol. Images are reviewed in the axial, sagittal, and coronal planes. 3-D MIPS images are created and assessed. I V contrast was administered without complication. A dose lowering technique was utilized adhering to the principles of ALARA. CT DOSE: 322.23 mGy.cm FINDINGS: Thyroid: Imaged portions of the thyroid gland are normal in size and attenuation. Thoracic aorta: The thoracic aorta is normal in caliber and demonstrates standard 3-vessel arch anatomy. No dissection is seen. Pulmonary vasculature: The pulmonary trunk is normal in caliber. There is a segmental pulmonary embolus within a branch of the right upper lobe pulmonary artery seen on image #168. A subsegmental pulmonary embolus is seen within a branch of the right lower lobe pulmonary artery on image #103. No additional pulmonary emboli are clearly identified. Evaluation of the left lower lobe vessels is degraded by motion artifact. Heart: The heart is normal in size and without pericardial effusion. Lungs and pleural spaces: Evaluation of the lung parenchyma is modestly degraded by motion artifact. No airspace consolidation or pleural effusion is identified. Scarring/atelectasis is noted at the lung bases. Mediastinum: There is no mediastinal lymphadenopathy. Kim: Clear. Axillae: There is no axillary lymphadenopathy. Upper abdomen: There is a moderate hiatal hernia. The liver appears steatotic. The calcified granulomas noted in the hepatic dome. Skeletal structures: No lytic or blastic bony lesions are seen. IMPRESSION: 1. Segmental and subsegmental pulmonary emboli are seen within branches of the right upper and right lower lobe pulmonary arteries as above. 2. There is no airspace consolidation or pleural effusion. 3. Moderate hiatal hernia. 4. Hepatic steatosis. ACT 112: Negative or not required by law. Electronically signed by: Philipp Lee M.D. 09/14/2021 7:43 PM [facility] Narrative Physical exam and history were performed. Nursing notes, EMR, and Medication List were personally reviewed. Patient appears to have pain in her left leg bringing her to the ER. Her symptoms do not seem distinctly consistent with sciatica, and there is concern as she does have recent left knee surgery, travel, and history of breast cancer. X-rays were obtained and the patient was sent to ultrasound. Imaging studies were reviewed by myself and radiology, and while her x-rays do not show acute findings, her ultrasound is concerning for an extensive DVT. The patient was updated on her findings, and she does remain hemodynamically stable. IV access was established and labs were obtained. Hypercoagulable panel was ordered. She was sent to CT scan out of concern for possible PE with the extensive nature of her DVT. The patient's blood work is as above and was reviewed. She does have a slightly elevated white blood cell count of 14,000. She does not have a significant anemia or gross electrolyte imbalance. INR is 1.0. Transaminases are not diagnostic. Covid is negative. CT angiogram was also reviewed by myself and radiology, and does reveal segmental and subsegmental pulmonary emboli as described above. Overall the patient does not appear well for discharge home. Her case was discussed with the [facility] team, who will initiate heparin. Please see their dictation for further patient course, plan, and disposition. The chart was completed utilizing [employer] Speech Voice Recognition Software. Grammatical errors, random word insertions, pronoun errors, and incomplete sentences are an occasional consequence of this system due to software limitations, ambient noise, and hardware issues. Any formal questions or concerns about the content, text, or information contained within the body of this dictation should be directly addressed to the provider for clarification. . Impression & Plan Acute pulmonary embolism, DVT (deep venous thrombosis) Discharge Plan Visit Data Chief Complaint: Leg Injury/Pain Stated Complaint: PAIN DOWN BACK OF L LEG ED Provider: Odell [facility] ED Midlevel Provider: Ry Avila Discharge Problem: Acute pulmonary embolism, DVT (deep venous thrombosis) Patient Disposition: Admitted As Inpatient Discharge Instructions Interventions: ED Discharge Assessment Last Done: 09/14/21 20:38 Discharge Problem: Acute pulmonary embolism Qualifiers: Pulmonary embolism type: other Acute cor pulmonale presence: unspecified Qual ified Code(s): I26.99 - Other pulmonary embolism without acute cor pulmonale DVT (deep venous thrombosis) Qualifiers: DVT location: lower extremity Affected thrombotic vein of extremity: unspecified vein of extremity Chronicity: acute Laterality: left Qualified Code(s): I82.402 - Acute embolism and thrombosis of unspecified deep veins of left lower extremity
[2021-09-14] MEDS ORDERED: HEPARIN SOD (PORCINE) 1000 UNIT/ML IV ONE (20:45)
[2021-09-14] MEDS: HEPARIN SODIUM/DEXTROSE 25,000 UNITS/500 ML BAG IV SCH (21:17)
[2021-09-15 04:02] LABS: Hematocrit (blood only) 40.5 % (37-47); Hemoglobin 13.6 g/dL (12.0-16.0); Mean Corpuscular Hemoglobin 30.7 pg (25-34); Mean Corpuscular Hgb Conc 33.6 g/dL (32-36); Mean Corpuscular Volume 91.4 fL (80-100); Platelet Count 167 K/uL (130-400); RDW Coefficient of Variation 13.8 % (11.5-14.5); RDW Standard Deviation 45.5 fL (36.4-46.3); Red Blood Count 4.43 M/uL (4.2-5.4); White Blood Count 10.35 K/uL (4.8-10.8)
[2021-09-15 04:26] LABS: BUN Creatinine Ratio 14.3 (10-20); Calcium 8.7 mg/dl (8.5-10.1); Creatinine Clr Calc Pharmacy 77.3 ml/min; Est GFR (African American) 85.7 ml/min; Potassium 3.7 mmol/L (3.5-5.1)
[2021-09-15 04:29] LABS: Partial Thromboplastin Ratio 4.7
[2021-09-15 04:32] LABS: Partial Thromboplastin Time 130.5 Seconds (21.0-31.0)
[2021-09-15] MEDS: LEVOTHYROXINE SODIUM 88 MCG TABLET PO SCH (06:32)
[2021-09-15] MEDS: PANTOprazole 40 MG TAB PO SCH (08:11)
[2021-09-15] MEDS: oxyCODONE HCL IR 5 MG TAB (IMMEDIATE RELEASE) PO PRN ×2 (08:11→17:03)
[2021-09-15] MEDS: TOPIRAMATE 50 MG TAB PO SCH (08:11)
[2021-09-15] MEDS: FLUoxetine HCL 20 MG CAP PO SCH (08:12)
[2021-09-15] MEDS: CETIRIZINE HCL 10 MG TABLET PO SCH (08:12)
[2021-09-15 11:24] LABS: Partial Thromboplastin Ratio 1.6; Partial Thromboplastin Time 43.6 Seconds (21.0-31.0)
[2021-09-15] MEDS ORDERED: MoRPHine SULFATE 2 MG/ML CARP IV PRN (11:45)
--- NOTE | 2021-09-15 14:07 | Hospitalist Progress Note ---
Date of Service September 15, 2021 Assessment & Plan (1) DVT (deep venous thrombosis): (2) Acute pulmonary embolism: Plan: Acute DVT Left LE/PE Risk Factors:Breast Cancer on Tamoxifen, Recent Travel --Venous Doppler:Extensive nearly occlusive to occlusive acute deep venous thrombosis is seen throughout the left lower extremity as above. Superficial venous thrombus seen within the greater saphenous and profunda femoris veins.. --CTA:Segmental and subsegmental pulmonary emboli are seen within branches of the right upper and right lower lobe pulmonary arteries as above. There is no airspace consolidation or pleural effusion. Moderate hiatal hernia. Hepatic steatosis. --Hypercoagulable work up pending --ECHO:pending --Continue IV Heparin --Discussed with her Primary Oncologist on 09/15/21 --Plan to transition to [facility] as [facility] --Needs follow up with Oncology upon discharge --Has Appointment on 09/17 --Saturating well on Room Air --Tamoxifen discontinued--Oncology agrees with Plan. Leucocytosis likely reactive from above Monitor GERD continue PPI Depression continue prozac Hypothyroidism continue Levothyroxine H/o Left breast cancer s/p mastectomy and radiation On tamoxifen--discontinued due to acute PE/DVT Discussed with on H/o left TKA 07/2020 H/O left knee arthrosopy and synovectomy 07/2021 DVT Px: IV Heparin Admission and Anticipated Discharge Date Admission Date: September 14, 2021 Subjective Patient is seen and examined at bedside Patient complaints of left leg pain ON IV Heparin Denies any chest pain, dyspnea, dizziness, nausea, abd pain, bleeding issues Discussed with today Review of Systems Review of Systems: All systems reviewed & are unremarkable except as noted in Subjective Physical Exam Physical Exam: Physical Exam: Vitals signs as noted above General Appearance:Moderately built and nourished, no apparent distress Head: normocephalic, Atraumatic Eyes: normal inspection, EOMI Neck: supple, Trachea midline Respiratory/Chest: Normal breath sounds, CTA, No accessory muscle use Cardiovascular: S1, S2, No murmur Abdomen/GI:Soft, Non tender, Bowel sounds present Extremities/Musculoskeletal:normal inspection, no edema Neurologic/Psych:AAOX3, grossly no focal neurological deficits Skin: normal color, warm Results & Data Results & Data ([facility]) Vital Signs (Past 12 Hours) Vital Signs Temp Pulse Pulse Resp BP Pulse Ox 09/15/21 11:53 37 C 72 18 110/72 94 09/15/21 08:04 67 09/15/21 08:00 37 C 78 18 106/67 94 09/15/21 03:47 37.0 C 69 18 110/69 95 Laboratory Results Short CBC 09/14/21 09/15/21 Range/Units 17:52 03:20 WBC 14.31 H 10.35 (4.8-10.8) K/uL Hgb 14.0 13.6 (12.0-16.0) g/dL Hct 41.4 40.5 (37-47) % Plt Count 171 167 (130-400) K/uL BMP 09/14/21 09/15/21 17:52 03:20 Sodium 139 138 Potassium 4.2 3.7 Chloride 109 H 108 H Carbon Dioxide 22 22 BUN 14 12 Creatinine 0.92 0.84 Glucose 130 H 120 H Calcium 9.0 8.7 Liver Function 09/14/21 Range/Units 17:52 Total Bilirubin 1.2 H (0.2-1.0) mg/dl AST 26 (13-39) U/L ALT 26 (7-52) U/L Alkaline Phosphatase 67 (34-104) U/L Albumin 4.1 (3.4-5.0) gm/dl (1) DVT (deep venous thrombosis) Affected thrombotic vein of extremity: unspecified vein of extremity Chronicity: acute DVT location: lower extremity Laterality: left Qualified Code(s): I82.402 - Acute embolism and thrombosis of unspecified deep veins of left lower extremity (2) Acute pulmonary embolism Acute cor pulmonale presence: unspecified Pulmonary embolism type: other Qualified Code(s): I26.99 - Other pulmonary embolism without acute cor pulmonale
[2021-09-15 17:20] LABS: Partial Thromboplastin Ratio 1.5; Partial Thromboplastin Time 40.4 Seconds (21.0-31.0)
[2021-09-15] MEDS: HEPARIN SODIUM/DEXTROSE 25,000 UNITS/500 ML BAG IV SCH (21:21)
[2021-09-16 00:10] LABS: Partial Thromboplastin Ratio 1.6; Partial Thromboplastin Time 44.4 Seconds (21.0-31.0)
[2021-09-16] MEDS: LEVOTHYROXINE SODIUM 88 MCG TABLET PO SCH (06:05)
[2021-09-16 07:32] LABS: Hemoglobin 13.4 g/dL (12.0-16.0); Mean Corpuscular Hemoglobin 30.5 pg (25-34); Mean Corpuscular Hgb Conc 33.5 g/dL (32-36); Mean Corpuscular Volume 91.1 fL (80-100); Mean Platelet Volume 11.3 fL (7.4-10.4); Platelet Count 176 K/uL (130-400); RDW Coefficient of Variation 13.6 % (11.5-14.5); RDW Standard Deviation 45.1 fL (36.4-46.3); Red Blood Count 4.39 M/uL (4.2-5.4); White Blood Count 10.33 K/uL (4.8-10.8)
[2021-09-16 08:06] LABS: Partial Thromboplastin Ratio 1.7
[2021-09-16 08:27] LABS: Partial Thromboplastin Time 45.8 Seconds (21.0-31.0)
[2021-09-16] MEDS: PANTOprazole 40 MG TAB PO SCH (08:36)
[2021-09-16] MEDS: TOPIRAMATE 50 MG TAB PO SCH (08:36)
[2021-09-16] MEDS: FLUoxetine HCL 20 MG CAP PO SCH (08:36)
[2021-09-16] MEDS: CETIRIZINE HCL 10 MG TABLET PO SCH (08:36)
[2021-09-16] MEDS: oxyCODONE HCL IR 5 MG TAB (IMMEDIATE RELEASE) PO PRN ×2 (08:36→17:05)
[2021-09-16 10:03] LABS: BUN Creatinine Ratio 13.4 (10-20); Calcium 8.7 mg/dl (8.5-10.1); Creatinine Clr Calc Pharmacy 67.4 ml/min; Est GFR (Non-African American) 62.2 ml/min; Magnesium 2.1 mg/dl (1.7-2.4); Potassium 3.8 mmol/L (3.5-5.1)
[2021-09-16 14:46] LABS: Partial Thromboplastin Ratio 1.8
[2021-09-16 15:28] LABS: Partial Thromboplastin Time 49.8 Seconds (21.0-31.0)
--- NOTE | 2021-09-16 15:33 | Hospitalist Progress Note ---
Date of Service September 16, 2021 Assessment & Plan (1) DVT (deep venous thrombosis): (2) Acute pulmonary embolism: Plan: Acute DVT Left LE/PE Risk Factors:Breast Cancer on Tamoxifen, Recent Travel --Venous Doppler:Extensive nearly occlusive to occlusive acute deep venous thrombosis is seen throughout the left lower extremity as above. Superficial venous thrombus seen within the greater saphenous and profunda femoris veins.. --CTA:Segmental and subsegmental pulmonary emboli are seen within branches of the right upper and right lower lobe pulmonary arteries as above. There is no airspace consolidation or pleural effusion. Moderate hiatal hernia. Hepatic steatosis. --Hypercoagulable work up pending --ECHO: Mild concentric LVH, EF 55 to 60%. Grade 1 diastolic dysfunction. Atrial septal aneurysm incidentally noted. Patent foramen oval, low risk for embolism --Continue IV Heparin --Discussed with her Primary Oncologist on 09/15/21 --Needs follow up with Oncology upon discharge --Has Appointment on 09/17 --Saturating well on Room Air --Tamoxifen discontinued--Oncology agrees with Plan. --Plan to transition to Eliquis tomorrow if no recurrence of blood clots in urine Leukocytosis likely reactive from above Monitor Atrial septal aneurysm Small, hemodynamically insignificant shunt Incidental finding on echo May need to be started on aspirin for stroke prophylaxis GERD continue PPI Depression continue prozac Hypothyroidism continue Levothyroxine H/o Left breast cancer s/p mastectomy and radiation On tamoxifen--discontinued due to acute PE/DVT Discussed with on H/o left TKA 07/2020 H/O left knee arthroscopy and synovectomy 07/2021 DVT Px: IV Heparin Admission and Anticipated Discharge Date Admission Date: September 14, 2021 Subjective Patient is seen and examined at bedside Still has left leg pain but better ON IV Heparin Reports noticing 2 small blood clots in urine Denies any chest pain, dyspnea, dizziness, nausea, abd pain Review of Systems Review of Systems: All systems reviewed & are unremarkable except as noted in Subjective Physical Exam Physical Exam: Physical Exam: Vitals signs as noted above General Appearance:Moderately built and nourished, no apparent distress Head: normocephalic, Atraumatic Eyes: normal inspection, EOMI Neck: supple, Trachea midline Respiratory/Chest: Normal breath sounds, CTA, No accessory muscle use Cardiovascular: S1, S2, No murmur Abdomen/GI:Soft, Non tender, Bowel sounds present Extremities/Musculoskeletal:normal inspection, no edema Neurologic/Psych:AAOX3, grossly no focal neurological deficits Skin: normal color, warm Results & Data Results & Data ([facility]) Vital Signs (Past 12 Hours) Vital Signs Temp Pulse Pulse Resp BP Pulse Ox 09/16/21 15:21 37.5 C 67 16 104/66 94 09/16/21 15:16 67 09/16/21 13:24 37.4 C 09/16/21 11:58 37.7 C H 68 18 114/70 93 09/16/21 08:02 37.2 C 63 18 123/71 95 09/16/21 07:18 64 09/16/21 05:10 37.3 C 63 18 114/71 94 Laboratory Results Short CBC 09/16/21 Range/Units 06:48 WBC 10.33 (4.8-10.8) K/uL Hgb 13.4 (12.0-16.0) g/dL Hct 40.0 (37-47) % Plt Count 176 (130-400) K/uL BMP 09/16/21 06:48 Sodium 137 Potassium 3.8 Chloride 106 Carbon Dioxide 25 BUN 13 Creatinine 0.97 Glucose 117 H Calcium 8.7 (1) DVT (deep venous thrombosis) Affected thrombotic vein of extremity: unspecified vein of extremity Chronicity: acute DVT location: lower extremity Laterality: left Qualified Code(s): I82.402 - Acute embolism and thrombosis of unspecified deep veins of left lower extremity (2) Acute pulmonary embolism Acute cor pulmonale presence: unspecified Pulmonary embolism type: other Qualified Code(s): I26.99 - Other pulmonary embolism without acute cor pulmonale
[2021-09-16] MEDS: HEPARIN SODIUM/DEXTROSE 25,000 UNITS/500 ML BAG IV SCH (17:56)
[2021-09-16] MEDS ORDERED: ACETAMINOPHEN 325 MG TAB PO PRN (18:43)
[2021-09-17] MEDS: oxyCODONE HCL IR 5 MG TAB (IMMEDIATE RELEASE) PO PRN (03:39)
[2021-09-17] MEDS: LEVOTHYROXINE SODIUM 88 MCG TABLET PO SCH (05:46)
[2021-09-17 07:17] LABS: Hematocrit (blood only) 37.4 % (37-47); Hemoglobin 12.4 g/dL (12.0-16.0); Mean Corpuscular Hemoglobin 30.4 pg (25-34); Mean Corpuscular Hgb Conc 33.2 g/dL (32-36); Mean Corpuscular Volume 91.7 fL (80-100); Mean Platelet Volume 11.3 fL (7.4-10.4); Platelet Count 193 K/uL (130-400); RDW Coefficient of Variation 13.5 % (11.5-14.5); RDW Standard Deviation 44.9 fL (36.4-46.3); Red Blood Count 4.08 M/uL (4.2-5.4); White Blood Count 9.37 K/uL (4.8-10.8)
[2021-09-17 07:22] LABS: BUN Creatinine Ratio 13.5 (10-20); Calcium 8.6 mg/dl (8.5-10.1); Creatinine Clr Calc Pharmacy 73.5 ml/min; Est GFR (African American) 79.9 ml/min; Potassium 3.8 mmol/L (3.5-5.1)
[2021-09-17 07:34] LABS: Partial Thromboplastin Ratio 1.9
[2021-09-17 07:43] LABS: Partial Thromboplastin Time 52.1 Seconds (21.0-31.0)
[2021-09-17] MEDS: CETIRIZINE HCL 10 MG TABLET PO SCH (08:45)
[2021-09-17] MEDS: FLUoxetine HCL 20 MG CAP PO SCH (08:45)
[2021-09-17] MEDS: PANTOprazole 40 MG TAB PO SCH (08:45)
[2021-09-17] MEDS: TOPIRAMATE 50 MG TAB PO SCH (08:45)
[2021-09-17] MEDS ORDERED: APIXABAN 5 MG TABLET PO SCH (10:30)
--- NOTE | 2021-09-17 10:55 | Discharge Summary ---
Date of Service September 17, 2021 Admission HPI Per Admitting Provider 61 year old female with history of left breast cancer s/p mastectomy and radiation currently on tamoxifen, left TKR, GERD, hypothyroidism, depression who presented to the ED with left groin pain. She has h/o left TKR 07/2020 followed by left knee arthroscopy and synovectomy on 07/2021. 3 weeks back while driving to [place] her leg was hanging and she noticed left leg swelling. She saw her PCP and was advised compression stocking which helped the swelling. 2 days back while working in the garden, she thinks she might have pulled her muscle and developed left groin pain for which she came to the ED today. In the ED, LLE US showed extensive acute DVT. Subsequent CTA chest showed right sided PE. She is afebrile, hemodynamically stable. No tachycardia. Saturating well in room air. Endorses some left calf heaviness with walking but no dyspnea, chest pain, light headedness dizziness. No prior h/o VTE. No other malignancy other than breast Ca. Uptodate on age appropriate cancer screening. No h/o hypercoagulability. Still on tamoxifen, states 2 more years left. No bleeding issues in the past. Admission Exam Per Admitting Provider General: Lying comfortably in bed, not in distress, on room air HEENT: EOMI, ASHLEY, MMM Chest: Clear breath sounds bilaterally, no wheezes or crackles CVS: Regular rate and rhythm, normal heart sounds, no murmur Abdomen: Soft, non tender, not distended, normal bowel sounds Neuro: Awake, alert, oriented, conversing well, non focal Extremities: No cyanosis, clubbing, LLE swelling Principal Diagnosis Acute left leg Deep venous thrombosis (Extensive) Right pulmonary emobolism Discharge Exam Constitutional + well hydrated; no acute distress Eyes PERRL, conjunctivae normal, anicteric sclerae ENMT external ear and nose normal, oropharynx normal Respiratory normal respiratory effort, lungs clear to auscultation Cardiovascular Rate/Rhythm: regular rate and regular rhythm S1 S2 Gastrointestinal (Abdomen) normal bowel sounds, soft, nontender, no hepatosplenomegaly Musculoskeletal Left lower extremity edema Neurologic PERRL, EOMI, accommodation nl, no face palsy, no dysarthria Psychiatric A+Ox3, euthymic affect Discharge Data Allergies Allergy/AdvReac Type Severity Reaction Status Date / Time bee venom protein (honey bee) Allergy Intermediate THROAT Verified 07/21/21 07:40 SWELLING ibuprofen Allergy Intermediate Hives Verified 07/21/21 07:40 Sulfa (Sulfonamide Allergy Intermediate Hives Verified 07/21/21 07:40 Antibiotics) Consultations 09/14/21 19:55 ED Decision to Admit Stat Ordered Studies 09/14/21 16:18 US venous doppler LE LT Stat There is extensive acute deep venous thrombosis seen extending from the left common femoral vein throughout the superficial femoral vein, and in the popliteal vein. This is nearly occlusive to occlusive. Superficial venous thrombus is seen throughout the greater saphenous vein and in the profunda femoris vein. The visualized calf veins are patent. IMPRESSION: 1. Extensive nearly occlusive to occlusive acute deep venous thrombosis is seen throughout the left lower extremity as above. 2. Superficial venous thrombus seen within the greater saphenous and profunda femoris veins. 09/14/21 17:35 CT angio chest PE protocol Stat Thyroid: Imaged portions of the thyroid gland are normal in size and attenuation. Thoracic aorta: The thoracic aorta is normal in caliber and demonstrates standard 3-vessel arch anatomy. No dissection is seen. Pulmonary vasculature: The pulmonary trunk is normal in caliber. There is a segmental pulmonary embolus within a branch of the right upper lobe pulmonary artery seen on image #168. A subsegmental pulmonary embolus is seen within a branch of the right lower lobe pulmonary artery on image #103. No additional pulmonary emboli are clearly identified. Evaluation of the left lower lobe vessels is degraded by motion artifact. Heart: The heart is normal in size and without pericardial effusion. Lungs and pleural spaces: Evaluation of the lung parenchyma is modestly degraded by motion artifact. No airspace consolidation or pleural effusion is identified. Scarring/atelectasis is noted at the lung bases. Mediastinum: There is no mediastinal lymphadenopathy. Kim: Clear. Axillae: There is no axillary lymphadenopathy. Upper abdomen: There is a moderate hiatal hernia. The liver appears steatotic. The calcified granulomas noted in the hepatic dome. Skeletal structures: No lytic or blastic bony lesions are seen. IMPRESSION: 1. Segmental and subsegmental pulmonary emboli are seen within branches of the right upper and right lower lobe pulmonary arteries as above. 2. There is no airspace consolidation or pleural effusion. 3. Moderate hiatal hernia. 4. Hepatic steatosis. Hospital Course (1) DVT (deep venous thrombosis): (2) Acute pulmonary embolism: Patient presented with left lower extremity pain and swelling Acute DVT Left LE/PE Risk Factors:Breast Cancer on Tamoxifen, Recent Travel --Venous Doppler:Extensive nearly occlusive to occlusive acute deep venous thrombosis is seen throughout the left lower extremity as above. Superficial venous thrombus seen within the greater saphenous and profunda femoris veins.. --CTA:Segmental and subsegmental pulmonary emboli are seen within branches of the right upper and right lower lobe pulmonary arteries as above. There is no airspace consolidation or pleural effusion. Moderate hiatal hernia. Hepatic steatosis. --Hypercoagulable work up pending --ECHO: Mild concentric LVH, EF 55 to 60%. Grade 1 diastolic dysfunction. Atrial septal aneurysm incidentally noted. Patent foramen oval, low risk for embolism Was started on iv heparin drip Dr James discussed with her Primary Oncologist on 09/15/21 Tamoxifen discontinued on discharged Patient ambulating well without hypoxia/shortness of breath Patient requiring oxycodone for left leg pain. Discharged on po tylenol and a few doses of oxycodone 5mg prn severe pain. Patient will need at least 3-6months anticoagulation since this is first DVT/PE. However, with how extensive this is may need anticoagulation life long. Will defer to Pet Trainer/Oncologist Atrial septal aneurysm Small, hemodynamically insignificant shunt Incidental finding on echo Currently on eliquis. Should be started on aspirin if anticoagulation is discontinued in the future GERD continue PPI Depression Continue prozac Hypothyroidism continue Levothyroxine H/o Left breast cancer s/p mastectomy and radiation On tamoxifen--discontinued due to acute PE/DVT H/o left TKA 07/2020 H/O left knee arthroscopy and synovectomy 07/2021 Patient discharged. She reported she will stay at her brother's for now as there are lots of steps at her home which will exacerbate her pain. Patient reports her job entails standing all day and pain limits that. Patient advised to follow up with PCP on 09/22/21 prior to resuming work. May need some restrictions at work such as allowing patient to work seated or stand intermittently Provided education regarding anticoagulation Total Time Total Time Spent Total Time Spent (In Minutes): 50 Total Time Includes: Examination of the Patient, Discharge Planning, Medication Reconciliation, Communication With Other Providers and Other Discharge Plan Discharge Items Patient Disposition: Home - Self-Care Reason For Visit: Left leg pain Discharge Diagnosis: Acute left leg Deep venous thrombosis (Extensive) Right pulmonary emobolism Activity: Resume your previous activity Non-emergency contact: Primary Care Provider and Oncologist Call non-emergency contact if: you have any medication questions and your symptoms worsen Follow-up/Referrals: Mary Arcos MD [Primary Care Provider] - (Date & Time 09/22/2021 11:00 AM Provider Ryan Lopez MD Department [facility] ) Diet: Regular Addtl Attending Provider Instructions: Mrs Abbott. You came to the hospital complaining of left leg pain and swelling. You were evaluated and found to have extensive blood clots in your left leg as well as blood clot in your right lung. You were started on blood thinners. You are being discharged on a blood thinner called apixaban or eliquis. Please take this as instructed. Please take 10mg twice daily till 09/23/21 and then 5mg twice daily from 09/24/21. Please stop taking Tamoxifen for now and follow up with your Oncologist. Please use tylenol as needed for leg pains and only use oxycodone sparingly for severe pain not controlled by tylenol as we discussed. Please do not go to work until follow up with your Primary Doctor. Please ensure follow up with your Primary Doctor on 09/22/21. It was a pleasure taking care of you. Pending Studies at Discharge: Yes Studies:: Hypercoagulable workup Stand-Alone Forms: My [employer], Work/School Release, Smoking Cessation Medications and DC Order Prescriptions: New Eliquis 5 mg tablet 5 mg PO UD Qty: 74 RF: 1 acetaminophen 325 mg Tablet 650 mg PO Q6H PRN (Reason: pain) Qty: 50 RF: 0 oxycodone 5 mg Tablet 5 mg PO BID PRN (Reason: Severe pain) Qty: 6 RF: 0 Continued omeprazole 20 mg Capsule,Delayed Release(Dr/Ec) 20 mg PO QAM RF: 0 diphenhydramine HCl [Benadryl] 25 mg Capsule 25 mg PO UD PRN (Reason: BEE STINGS) RF: 0 epinephrine 0.3 mg/0.3 mL Auto-Injector 0.3 mg IM UD PRN (Reason: BEE STINGS) RF: 0 cetirizine 10 mg Tablet 10 mg PO QAM RF: 0 fluoxetine 20 mg Capsule 20 mg PO QAM RF: 0 topiramate 50 mg Tablet 50 mg PO QAM RF: 0 levothyroxine 88 mcg Capsule 88 mcg PO QAM RF: 0 Discontinued tamoxifen 20 mg Tablet 20 mg PO QAM RF: 0 Discharge Orders: Discharge Order (Routine); Ordered 09/17/21 Ordered By: Tami Mcknight/Other Patient Handouts: Apixaban Oral Tablet 5 mg Admission Data Admit Date/Time: 09/14/21 20:10 Attending Provider: Tami Phillips I. Admit Provider: Darshan Grossman Primary Care Provider: Mary Arcos Other Providers: Long Le ; Carlos James Other Interventions: Discharge Summary Assessment (RN) Last Done: 09/17/21 11:51
[2021-09-18 08:46] LABS: B2 Glycoprotein IgG <2.0 U/mL (<20.0); B2 Glycoprotein IgM <2.0 U/mL (<20.0); Protein S Functional(Activity) 79 % (60-140)
[2021-09-19 23:21] LABS: Anti Cardiolipin Ab IgG <2.0 GPL-U/mL; Anti Cardiolipin Ab IgM <2.0 MPL-U/mL; Anti-Thrombin III Activity 101 % normal (80-135); PTT LA Screen 38 sec (<=40)
[2021-09-23 00:40] LABS: Factor 5 Mutation POSITIVE
== END 2021-09-17 14:32 | disposition home or self-care (01) | DRG 299 ==
LOC: ED 15:48 → SUATTDRO 20:10 → 2W 20:10
DX: I25.3 Aneurysm of heart; Z91.030 Bee allergy status; I82.432 Acute embolism and thrombosis of left popliteal vein; I26.94 Multiple subsegmental thrombotic pulmonary emboli without acute cor pulmonale; I82.812 Embolism and thrombosis of superficial veins of left lower extremity; J90 Pleural effusion, not elsewhere classified; Z96.652 Presence of left artificial knee joint; E03.9 Hypothyroidism, unspecified; Z88.6 Allergy status to analgesic agent; I82.412 Acute embolism and thrombosis of left femoral vein; Z85.3 Personal history of malignant neoplasm of breast; D72.829 Elevated white blood cell count, unspecified; K21.9 Gastro-esophageal reflux disease without esophagitis; F32.A Depression, unspecified; Z88.2 Allergy status to sulfonamides; Z90.12 Acquired absence of left breast and nipple; Z79.890 Hormone replacement therapy

== ENCOUNTER 2022-09-18 09:20 | Inpatient (IN) ==
[2022-09-18] MEDS ORDERED: NITROGLYCERIN 2% OINTMENT 30GM TUBE EXT STA (10:16)
[2022-09-18 10:27] LABS: Basophils # (auto) 0.08 K/uL (0-0.2); Basophils % (auto) 1.3 %; Eosinophils # (auto) 0.11 K/uL (0-0.50); Eosinophils % (auto) 1.8 %; Hematocrit (blood only) 41.3 % (37.0-47.0); Hemoglobin 13.8 g/dl (12.0-16.0); Immature Granulocytes # (auto) 0.03 K/uL (0.01-0.20); Immature Granulocytes % (auto) 0.5 %; Lymphocytes # (auto) 1.69 K/uL (1.2-3.4); Lymphocytes % (auto) 27.7 %; Mean Corpuscular Hemoglobin 30.1 pg (25.0-34.0); Mean Corpuscular Hgb Conc 33.4 g/dL (32.0-36.0); Mean Corpuscular Volume 90.2 fL (80.0-100.0); Mean Platelet Volume 10.8 fL (9.4-12.4); Monocytes # (auto) 0.47 K/uL (0.11-0.59); Monocytes % (auto) 7.7 %; Neutrophils # (auto) 3.72 K/uL (1.40-6.50); Platelet Count 224 K/uL (130-400); RDW Coefficient of Variation 13.2 % (11.5-14.5); RDW Standard Deviation 42.6 fL (36.4-46.3); Red Blood Count 4.58 M/uL (4.20-5.40)
--- NOTE | 2022-09-18 10:33 | XRay Report ---
SINGLE VIEW CHEST CLINICAL HISTORY: Atypical chest pain FINDINGS: An AP, portable, upright chest radiograph is compared to chest x-ray and chest CT dated 03/12/2022. The cardiomediastinal silhouette is unremarkable. The lungs and pleural spaces are clear. No pneumothorax is seen. The bony thorax is grossly intact. IMPRESSION: No active disease in the chest. ACT 112: Negative or not required by law. Electronically signed by: Philipp Lee M.D. 09/18/2022 10:32 AM
[2022-09-18 10:48] LABS: Albumin Globulin Ratio 1.6 (0.9-2); Albumin Level 4.2 gm/dl (3.4-5.0); BUN Creatinine Ratio 17.5 (10-20); Bilirubin,Total 0.5 mg/dl (0.2-1.0); Calcium 9.3 mg/dl (8.6-10.3); Creatinine Clr Calc Pharmacy 64.3 ml/min; Est GFR (African American) 71.5 ml/min; Est GFR (Non-African American) 61.7 ml/min; Globulin 2.6 gm/dl (2.5-4.0); Total Protein 6.8 gm/dl (6.0-8.3)
[2022-09-18 10:54] LABS: Troponin I High Sensitivity 4.4 pg/ml (0-14)
[2022-09-18] MEDS ORDERED: OPTIRAY 320 500ml IV ONE (11:47)
--- NOTE | 2022-09-18 12:02 | CT Scan Report ---
CT ANGIOGRAM OF THE CHEST CLINICAL HISTORY: Atypical left-sided chest pain. COMPARISON STUDY: Chest x-ray dated 09/18/2022. Chest CT dated 03/12/2022. TECHNIQUE: Following the IV administration of 120 cc of Optiray 320, CT angiogram of the chest was pe rformed from the upper abdomen to the thoracic inlet utilizing the pulmonary embolus protocol. Images are reviewed in the axial, sagittal, and coronal planes. 3-D MIPS images are created and assessed. I V contrast was administered without complication. A dose lowering technique was utilized adhering to the principles of ALARA. CT DOSE: 434.17 mGycm FINDINGS: Thyroid: Mildly enlarged and heterogeneous. Thoracic aorta: The thoracic aorta is normal in caliber and demonstrates standard 3-vessel arch anato my. No dissection is seen. Pulmonary vasculature: The pulmonary trunk is normal in caliber. There are no filling defects identif ied in main, lobar, or segmental pulmonary branches to suggest pulmonary embolus. Heart: The heart is enlarged and without pericardial effusion. Lungs and pleural spaces: Evaluation of the lung parenchyma is moderately degraded by motion artifact . There is no airspace consolidation or pleural effusion. Mild dependent atelectasis is noted at the lung bases. The trachea and central airways are clear. Mediastinum: There is no mediastinal lymphadenopathy. Kim: Clear. Axillae: There is no axillary lymphadenopathy. Upper abdomen: There is a moderate hiatal hernia. A calcification is noted in the right lobe of liver . There are numerous tiny hepatic cysts versus biliary hamartomas. These were also seen on 03/12/2022. Skeletal structures: The skeletal structures are osteopenic. No lytic or blastic bony lesions are see n. IMPRESSION: 1. There is no evidence of pulmonary embolus in the main, lobar, or segmental pulmonary arteries. 2. There is no airspace consolidation or pleural effusion. 3. Cardiomegaly. 4. Additional findings as above. ACT 112: Negative or not required by law. Electronically signed by: Philipp Lee M.D. 09/18/2022 12:01 PM
--- NOTE | 2022-09-18 12:17 | Emergency Department Note ---
Impression & Plan Non-sustained ventricular tachycardia, Left-sided chest pain ED Provider Note INFORMANT: Patient ED PROVIDER(S): Ricky Patrick MD CHIEF COMPLAINT: Chest pain PLAN: Disposition: Admitted Condition: Good Outpatient none prescription management: None Referral: MEDICAL DECISION MAKING: Patient presented because of left-sided chest pain. Her ECG did not show any ischemia. Patient IV established. She was ordered Nitropaste. This resolved her chest discomfort. Cardiac monitoring revealed multiple episodes of nonsustained ventricular tachycardia. Patient was asymptomatic with this. I did consult with Dr. David Gabriel of [facility] cardiology. We discussed t he case. Patient will need further management in the hospital regarding this rhythm issue. Chest x-ray was unremarkable. Blood work including troponin did not reveal any acute findings. Patient underwent CT PE study and this was negative for pulmonary embolus or other acute findings. [facility] Patient was evaluated and admitted for further management. Discussed with global manager. After review of the information above and other included data, I feel the patient requires admission. Triage Nursing notes reviewed and agree them. Vital Signs: reviewed and remarkable for no significant abnormalities Prior /Outside records reviewed: none Differential diagnosis: Cardiac ischemia, aortic dissection, pulmonary embolism, pneumothorax, pneumonia, pericarditis, myocarditis, esophageal rupture, GERD, cholecystitis, pancreatitis, musculoskeletal, as well as other pathologies. Diagnostics, as interpreted by me: ECG: Twelve-lead ECG reveals sinus bradycardia 50 bpm. There is left atrial enlargement. Incomplete right bundle branch block. No ST elevation or depression. No PACs or PVCs. Cardiac Monitoring:Cardiac monitoring ordered by me: The patient was placed on continuous cardiac monitoring and observed. It revealed a sinus bradycardic rhythm at 58 bpm. Occasional PVCs and coupled PVCs noted. Patient was then noted to have multiple episodes of nonsustained ventricular tachycardia up to about 8 beats. Medical decision rules: none Imaging studies: Chest x-ray. Findings: A chest x-ray was performed and revealed no pneumothorax, effusion, infiltrate, pulmonary edema, free air under the diaphragm, or wide mediastinum. Impression: No acute disease. CT PE study negative for PE. HPI: The patient is a 62 year old female who presents to the Emergency Room with complaints of left-sided chest pain. This started about 30 minutes prior to arrival and is somewhat improved. The patient also notes the following associated symptoms, none. The patient has taken no medication for relieving factors. Current pain is rated as 3/10. Patient notes pain was a 5. Patient has a history of PE and was concerned for the same. She is on Eliquis. She missed her dose last night and had not taken her morning dose yet today. Pt denies LOC, headache, fevers, chills, diaphoresis, visual changes, neck pain, breathing difficulties, nausea, vomiting, abdominal pain, back pain, melena, hematochezia, urinary symptoms, numbness, weakness, lymphadenopathy, rash, or other complaints. PAST MEDICAL HISTORY: See Below, pulmonary embolus PAST SURGICAL HISTORY: See Below, knee replacement SOCIAL HISTORY: See Below, non-smoker HOME MEDICATIONS: See Below ALLERGIES: See Below VITALS: See Below PHYSICAL EXAMINATION: GENERAL: Awake, alert, well-appearing, in no distress HENT: Normocephalic, atraumatic. Oropharynx unremarkable. EYES: Normal conjunctiva. Sclera non-icteric. NECK: Inspection normal. Non-tender. Supple. No nuchal rigidity. FROM. No masses. RESPIRATORY: Clear to auscultation. No wheezes. No rales. Normal respiratory effort. CARDIAC: Normal rate. Normal rhythm. No murmurs. No rubs. Extremities warm and well perfused. Pulses equal. No JVD. GI: Soft, non-distended. No tenderness to palpation. No rebound or guarding. No masses. RECTAL: Deferred. MUSCULOSKELETAL: Atraumatic. Chest examination reveals no tenderness. The back is symmetrical on inspection without obvious abnormality. There is no CVA tenderness to palpation. No joint edema. LOWER EXTREMITIES: Calves are equal size bilaterally and non-tender. No edema. No discoloration. NEURO: Normal sensorium. No sensory or motor deficits noted. SKIN: No rash or jaundice noted. Past Med/Surg History Medical History (Updated 09/18/22 @ 13:55 by Nasima Gallegos PA-C) Breast cancer (06/02/16) 2017, Invasive carcinoma of L breast, s/p lumpectomy and radiation. Chest pain ON RECORD-PT DENIES ANY RECENT CHEST PAIN Depression DVT (deep venous thrombosis) Extensive left leg DVT after left knee arthroscopy Encounter for pre-operative examination Fatty liver GERD (gastroesophageal reflux disease) Headache HX-CAUSED BY PINCHED NERVE IN NECK Hiatal hernia History of pulmonary embolism Hypothyroidism Prediabetes Pulmonary embolism Segmental and subsegmental pulmonary emboli after left knee arthroscopy Thyroid disease Hypothyroidism Surgical History History of 2 sections History of anesthesia reaction 1992 - Awareness during C/S after gas/mask induction. Eyes were closed but she could hear everything. Does not recall having spinal, but recalls only feeling pressure during procedure. 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 Beliefs That Will Affect Care: None marital status: Current Living Situation: Spouse Current Living Situation Comment: with current occupational status: employed current occupation: [employer] Feels Safe at Home: Yes Assistive Devices: Walker Allergies Allergies Allergy/AdvReac Type Severity Reaction Status Date / Time bee venom protein (honey bee) Allergy Intermediate THROAT Verified 03/12/22 23:50 SWELLING ibuprofen Allergy Intermediate Hives Verified 03/12/22 23:50 Sulfa (Sulfonamide Allergy Intermediate Hives Verified 03/12/22 23:50 Antibiotics) Home Meds Home Medications Medication Instructions Recorded Confirmed epinephrine 0.3 mg/0.3 mL 0.3 mg IM UD PRN BEE STINGS 04/29/20 09/18/22 injection, auto-injector topiramate 50 mg tablet 50 mg PO QAM 07/17/21 09/18/22 famotidine 20 mg tablet 20 mg PO QAM 10/23/21 09/18/22 letrozole 2.5 mg tablet 2.5 mg PO QAM 10/23/21 09/18/22 calcium carbonate 600 mg-vitamin 1 cap PO DAILY 03/12/22 09/18/22 D3 5 mcg (200 unit) capsule (Calcium 600 + D(3)) fluoxetine 10 mg capsule 10 mg PO QAM 03/12/22 09/18/22 levothyroxine 100 mcg tablet 100 mcg PO DAILY 09/18/22 09/18/22 metformin 500 mg tablet 500 mg PO BID 09/18/22 09/18/22 omeprazole 40 mg capsule,delayed 40 mg PO DAILY 09/18/22 09/18/22 release Previous Rx's Medication Instructions Recorded acetaminophen 325 mg tablet 650 mg PO Q6H PRN pain #50 tabs 09/17/21 apixaban 2.5 mg tablet 2.5 mg PO BID #180 tabs 06/10/22 Results & Data (ED) Vital Signs Vital Signs - 24 hr 09/18/22 09:25 09/18/22 10:00 09/18/22 10:15 Temperature 36.6 C Temperature Source Temporal Artery Scan Pulse Rate 59 L 51 L Pulse Rate from SpO2 Sensor Respiratory Rate 20 Respiratory Effort / Characteristics Non-Labored Spontaneous Respiratory Depth Normal Blood Pressure 149/78 H Blood Pressure Mean 101 Blood Pressure Position Sitting Pulse Oximetry 100 96 Oxygen Delivery Method Room Air Room Air Sepsis Recent Fever Within 48 Hours No Sepsis New/Unexplained Change in Mental Status N/A Sepsis Action Taken by Nursing No Action Required 09/18/22 09:57 09/18/22 10:00 09/18/22 10:08 Temperature Temperature Source Pulse Rate 52 L 54 L Pulse Rate from SpO2 Sensor 51 L 53 L Respiratory Rate 24 18 Respiratory Effort / Characteristics Respiratory Depth Blood Pressure 147/87 H Blood Pressure Mean 107 Blood Pressure Position Pulse Oximetry 99 98 Oxygen Delivery Method Sepsis Recent Fever Within 48 Hours Sepsis New/Unexplained Change in Mental Status Sepsis Action Taken by Nursing 09/18/22 10:08 09/18/22 10:30 09/18/22 10:53 Temperature Temperature Source Pulse Rate 59 L 55 L Pulse Rate from SpO2 Sensor 54 L 53 L Respiratory Rate 24 16 Respiratory Effort / Characteristics Respiratory Depth Blood Pressure 146/82 H Blood Pressure Mean 103 Blood Pressure Position Pulse Oximetry 99 99 Oxygen Delivery Method Sepsis Recent Fever Within 48 Hours Sepsis New/Unexplained Change in Mental Status Sepsis Action Taken by Nursing 09/18/22 10:53 09/18/22 11:00 09/18/22 11:00 Temperature Temperature Source Pulse Rate 59 L 54 L Pulse Rate from SpO2 Sensor 57 L 54 L Respiratory Rate 17 17 Respiratory Effort / Characteristics Respiratory Depth Blood Pressure 144/83 H Blood Pressure Mean 103 Blood Pressure Position Pulse Oximetry 99 99 Oxygen Delivery Method Sepsis Recent Fever Within 48 Hours Sepsis New/Unexplained Change in Mental Status Sepsis Action Taken by Nursing 09/18/22 11:30 09/18/22 11:30 09/18/22 12:00 Temperature Temperature Source Pulse Rate 55 L Pulse Rate from SpO2 Sensor 57 L Respiratory Rate 17 Respiratory Effort / Characteristics Respiratory Depth Blood Pressure 139/81 136/77 Blood Pressure Mean 100 96 Blood Pressure Position Pulse Oximetry 98 Oxygen Delivery Method Sepsis Recent Fever Within 48 Hours Sepsis New/Unexplained Change in Mental Status Sepsis Action Taken by Nursing 09/18/22 12:00 09/18/22 12:30 09/18/22 12:30 Temperature Temperature Source Pulse Rate 66 78 Pulse Rate from SpO2 Sensor 62 65 Respiratory Rate 19 19 Respiratory Effort / Characteristics Respiratory Depth Blood Pressure 131/75 Blood Pressure Mean 93 Blood Pressure Position Pulse Oximetry 96 97 Oxygen Delivery Method Sepsis Recent Fever Within 48 Hours Sepsis New/Unexplained Change in Mental Status Sepsis Action Taken by Nursing Laboratory Data 09/18/22 10:00 09/18/22 10:00 Lab Results 09/18/22 09/18/22 09/18/22 Range/Units 10:00 10:00 10:00 WBC 6.10 (4.8-10.8) K/ul RBC 4.58 (4.20-5.40) M/uL Hgb 13.8 (12.0-16.0) g/dl Hct 41.3 (37.0-47.0) % MCV 90.2 (80.0-100.0) fL MCH 30.1 (25.0-34.0) pg MCHC 33.4 (32.0-36.0) g/dL RDW Std Deviation 42.6 (36.4-46.3) fL RDW Coeff of Joanna 13.2 (11.5-14.5) % Plt Count 224 (130-400) K/uL MPV 10.8 (9.4-12.4) fL Immature Gran % (Auto) 0.5 % Neut % (Auto) 61.0 % Lymph % (Auto) 27.7 % [place] % (Auto) 7.7 % Eos % (Auto) 1.8 % Baso % (Auto) 1.3 % Neut # (Auto) 3.72 (1.40-6.50) K/uL Lymph # (Auto) 1.69 (1.2-3.4) K/uL [place] # (Auto) 0.47 (0.11-0.59) K/uL Eos # (Auto) 0.11 (0-0.50) K/uL Baso # (Auto) 0.08 (0-0.2) K/uL Immature Gran # (Auto) 0.03 (0.01-0.20) K/uL Sodium 139 (136-145) mmol/L Potassium 4.0 (3.5-5.1) mmol/L Chloride 108 H (98-107) mmol/L Carbon Dioxide 26 (21-32) mmol/L Anion Gap 5 (3-11) BUN 17 (6-23) mg/dl Creatinine 0.97 (0.6-1.2) mg/dl Est Cr Clr Drug Dosing 64.3 ml/min Est GFR ( Amer) 71.5 ml/min Est GFR (Non-Af Amer) 61.7 ml/min BUN/Creatinine Ratio 17.5 (10-20) Glucose 103 H (70-99(Fasting)) mg/dl Calcium 9.3 (8.6-10.3) mg/dl Magnesium (1.7-2.4) mg/dl Total Bilirubin 0.5 (0.2-1.0) mg/dl AST 17 (13-39) U/L ALT 14 (7-52) U/L Alkaline Phosphatase 62 (34-104) U/L Troponin I High Sens 4.4 (0-14) pg/ml Total Protein 6.8 (6.0-8.3) gm/dl Albumin 4.2 (3.4-5.0) gm/dl Globulin 2.6 (2.5-4.0) gm/dl Albumin/Globulin Ratio 1.6 (0.9-2) Lipase 37 (11-82) U/L TSH 5.015 H (0.300-4.500) uIu/ml 09/18/22 Range/Units 10:55 WBC (4.8-10.8) K/ul RBC (4.20-5.40) M/uL Hgb (12.0-16.0) g/dl Hct (37.0-47.0) % MCV (80.0-100.0) fL MCH (25.0-34.0) pg MCHC (32.0-36.0) g/dL RDW Std Deviation (36.4-46.3) fL RDW Coeff of Joanna (11.5-14.5) % Plt Count (130-400) K/uL MPV (9.4-12.4) fL Immature Gran % (Auto) % Neut % (Auto) % Lymph % (Auto) % [place] % (Auto) % Eos % (Auto) % Baso % (Auto) % Neut # (Auto) (1.40-6.50) K/uL Lymph # (Auto) (1.2-3.4) K/uL [place] # (Auto) (0.11-0.59) K/uL Eos # (Auto) (0-0.50) K/uL Baso # (Auto) (0-0.2) K/uL Immature Gran # (Auto) (0.01-0.20) K/uL Sodium (136-145) mmol/L Potassium (3.5-5.1) mmol/L Chloride (98-107) mmol/L Carbon Dioxide (21-32) mmol/L Anion Gap (3-11) BUN (6-23) mg/dl Creatinine (0.6-1.2) mg/dl Est Cr Clr Drug Dosing ml/min Est GFR ( Amer) ml/min Est GFR (Non-Af Amer) ml/min BUN/Creatinine Ratio (10-20) Glucose (70-99(Fasting)) mg/dl Calcium (8.6-10.3) mg/dl Magnesium 2.2 (1.7-2.4) mg/dl Total Bilirubin (0.2-1.0) mg/dl AST (13-39) U/L ALT (7-52) U/L Alkaline Phosphatase (34-104) U/L Troponin I High Sens (0-14) pg/ml Total Protein (6.0-8.3) gm/dl Albumin (3.4-5.0) gm/dl Globulin (2.5-4.0) gm/dl Albumin/Globulin Ratio (0.9-2) Lipase (11-82) U/L TSH (0.300-4.500) uIu/ml Administered Medications Discontinued Medications Ioversol (Optiray 320 500ml) 120 ml IV ONCE ONE Stop: 09/18/22 11:48 Last Admin: 09/18/22 11:47 Dose: 120 ml Documented By: DANIA Metoprolol Tartrate (Metoprolol Tartrate 25 Mg Tab) 25 mg PO ONE ONE Stop: 09/18/22 16:31 Last Admin: 09/18/22 16:22 Dose: 25 mg Documented By: AM Nitroglycerin (Nitroglycerin 2% Ointment 30gm Tube) 0.25 inch EXT NOW STA Stop: 09/18/22 10:17 Last Admin: 09/18/22 10:23 Dose: 0.25 inch Documented By: AM Imaging Data Radiologist's Impression: Chest X-Ray 09/18/22 09:58 SINGLE VIEW CHEST CLINICAL HISTORY: Atypical chest pain FINDINGS: An AP, portable, upright chest radiograph is compared to chest x-ray and chest CT dated 03/12/2022. The cardiomediastinal silhouette is unremarkable. The lungs and pleural spaces are clear. No pneumothorax is seen. The bony thorax is grossly intact. IMPRESSION: No active disease in the chest. ACT 112: Negative or not required by law. Electronically signed by: Philipp Lee M.D. 09/18/2022 10:32 AM Chest CTA 09/18/22 10:55 CT ANGIOGRAM OF THE CHEST CLINICAL HISTORY: Atypical left-sided chest pain. COMPARISON STUDY: Chest x-ray dated 09/18/2022. Chest CT dated 03/12/2022. TECHNIQUE: Following the IV administration of 120 cc of Optiray 320, CT angiogram of the chest was performed from the upper abdomen to the thoracic inlet utilizing the pulmonary embolus protocol. Images are reviewed in the axial, sagittal, and coronal planes. 3-D MIPS images are created and assessed. IV contrast was administered without complication. A dose lowering technique was utilized adhering to the principles of ALARA. CT DOSE: 434.17 mGycm FINDINGS: Thyroid: Mildly enlarged and heterogeneous. Thoracic aorta: The thoracic aorta is normal in caliber and demonstrates standard 3-vessel arch anatomy. No dissection is seen. Pulmonary vasculature: The pulmonary trunk is normal in caliber. There are no filling defects identified in main, lobar, or segmental pulmonary branches to suggest pulmonary embolus. Heart: The heart is enlarged and without pericardial effusion. Lungs and pleural spaces: Evaluation of the lung parenchyma is moderately degraded by motion artifact. There is no airspace consolidation or pleural effusion. Mild dependent atelectasis is noted at the lung bases. The trachea and central airways are clear. Mediastinum: There is no mediastinal lymphadenopathy. Kim: Clear. Axillae: There is no axillary lymphadenopathy. Upper abdomen: There is a moderate hiatal hernia. A calcification is noted in the right lobe of liver. There are numerous tiny hepatic cysts versus biliary hamartomas. These were also seen on 03/12/2022. Skeletal structures: The skeletal structures are osteopenic. No lytic or blastic bony lesions are seen. IMPRESSION: 1. There is no evidence of pulmonary embolus in the main, lobar, or segmental pulmonary arteries. 2. There is no airspace consolidation or pleural effusion. 3. Cardiomegaly. 4. Additional findings as above. ACT 112: Negative or not required by law. Electronically signed by: Philipp Lee M.D. 09/18/2022 12:01 PM Discharge Plan Visit Data Chief Complaint: Chest Pain Stated Complaint: CHEST PAINS ED Provider: Ricky Patrick Discharge Problem: Non-sustained ventricular tachycardia, Left-sided chest pain Patient Disposition: Admitted As Inpatient Discharge Instructions Interventions: ED Discharge Assessment Last Done: 09/18/22 14:53
--- NOTE | 2022-09-18 12:33 | History & Physical Report ---
Date of Service September 18, 2022 Assessment & Plan (1) Chest pain: (2) Non-sustained ventricular tachycardia: Plan: Patient is 62 y/o F with PMH left breast cancer s/p partial mastectomy and sentinel lymph node resection, radiation and chemo, History of DVT and PE , now chronically anticoagulated on Eliquis, prediabetes, hypothyroidism, GERD, LLANOS presented to ER with c/o chest tightness prior to arrival. In ER noted to have couplet PVCs as well as several episodes of nonsustained V. tach 6-8 beats. Vitals stable. No significant electrolyte abnormality. Initial high-sensitivity troponin: 4 CTA chest: There is no evidence of pulmonary embolus in the main, lobar, or segmental pulmonary arteries. There is no airspace consolidation or pleural effusion. Cardiomegaly. In ER 0.25 inch Nitropaste applied. Patient chest tightness resolved in ER Admit to telemetry Pacer pads at bedside Trend troponin Echo Start metoprolol tartrate 12.5 twice daily with holding parameters TSH pending Cardiology consult CBC, BMP in a.m. (3) History of pulmonary embolism: Plan: History of DVT and PE in 09/2021 Chronically anticoagulated on Eliquis Continue Eliquis (4) Breast cancer: Plan: History of left breast cancer s/p partial mastectomy and sentinel lymph node resection, radiation and chemo Currently on letrozole (5) Prediabetes: Plan: A1c: 5.5 on 08/10/2022 Hold metformin Monitor morning BSG (6) GERD (gastroesophageal reflux disease): Plan: Continue H2 eun, PPI (7) Hypothyroidism: Plan: TSH pending Continue levothyroxine DVT Prophylaxis On Eliquis Full Code as per discussion with pt Follows with Dr Arcos for routine care Pt was seen and care coordinated with Dr Johnson. See addendum I spent a total of 76 minutes reviewing notes, outpatient records, labs, medication, coordinating, documenting and providing care for this patient excluding time spent in the performance of separately billed services. History of Present Illness Chief Complaint: CP Primary Care Provider: Mary Arcos MD Patient is 62 y/o F with PMH left breast cancer s/p partial mastectomy and sentinel lymph node resection, radiation and chemo, History of DVT and PE 09/2021, now chronically anticoagulated on Eliquis, hypothyroidism, GERD, LLANOS presented to ER with c/o CP. Patient states was standing at work when she had sudden onset of chest tightness. She states her head felt a little "funny" but did not have significant dizziness or lightheadedness. Denies any associated shortness of breath, palpitations. She reports chest tightness lasted a couple of hours. In ER 0.25 inch nitro paste applied. Patient has been chest pain- free since in ER. On monitoring specialist noted couplet PVCs as well as several episodes of nonsustained V. tach 6-8 beats. Patient denies OTC supplements or herbals. Drinks 20-40 ounces coffee daily. Denies fever/chills, diaphoresis, N/V/D/C, MIXON, syncope, vision changes, neck pain, SOB, orthopnea, palpitations, cough, sore throat, choking, otalgia, rhinorrhea, abdominal pain, paresthesias, weakness, extremity weakness, extremity edema, rashes, urinary symptoms. Allergies Allergy/AdvReac Type Severity Reaction Status Date / Time bee venom protein (honey bee) Allergy Intermediate THROAT Verified 03/12/22 23:50 SWELLING ibuprofen Allergy Intermediate Hives Verified 03/12/22 23:50 Sulfa (Sulfonamide Allergy Intermediate Hives Verified 03/12/22 23:50 Antibiotics) Home Medications Medication Instructions Recorded Confirmed Type epinephrine 0.3 mg/0.3 mL 0.3 mg IM UD PRN BEE STINGS 04/29/20 09/18/22 History injection, auto-injector topiramate 50 mg tablet 50 mg PO QAM 07/17/21 09/18/22 History acetaminophen 325 mg tablet 650 mg PO Q6H PRN pain #50 tabs 09/17/21 09/18/22 Rx famotidine 20 mg tablet 20 mg PO QAM 10/23/21 09/18/22 History letrozole 2.5 mg tablet 2.5 mg PO QAM 10/23/21 09/18/22 History calcium carbonate 600 mg-vitamin 1 cap PO DAILY 03/12/22 09/18/22 History D3 5 mcg (200 unit) capsule (Calcium 600 + D(3)) fluoxetine 10 mg capsule 10 mg PO QAM 03/12/22 09/18/22 History apixaban 2.5 mg tablet 2.5 mg PO BID #180 tabs 06/10/22 09/18/22 Rx levothyroxine 100 mcg tablet 100 mcg PO DAILY 09/18/22 09/18/22 History metformin 500 mg tablet 500 mg PO BID 09/18/22 09/18/22 History omeprazole 40 mg capsule,delayed 40 mg PO DAILY 09/18/22 09/18/22 History release Past Med/Surg History Medical History Breast cancer (06/02/16) 2017, Invasive carcinoma of L breast, s/p lumpectomy and radiation. Chest pain ON RECORD-PT DENIES ANY RECENT CHEST PAIN Depression DVT (deep venous thrombosis) Extensive left leg DVT after left knee arthroscopy Encounter for pre-operative examination Fatty liver GERD (gastroesophageal reflux disease) Headache HX-CAUSED BY PINCHED NERVE IN NECK Hiatal hernia History of pulmonary embolism Hypothyroidism Prediabetes Pulmonary embolism Segmental and subsegmental pulmonary emboli after left knee arthroscopy Thyroid disease Hypothyroidism Surgical History History of 2 sections History of anesthesia reaction 1991 - Awareness during C/S after gas/mask induction. Eyes were closed but she could hear everything. Does not recall having spinal, but recalls only feeling pressure during procedure. History of colonoscopy History of esophagogastroduodenoscopy (EGD) History of lumpectomy of left breast WITH LYMPH NODES History of total knee replacement Family History Other No family history of adverse response to anesthesia Social History Smoking Status: Never smoker Second Hand Exposure: No; Hx Alcohol Use: No Hx Substance Use: No Preferred Language: Italian Communication Ability: Effective Strategies Analyst Required: No Beliefs That Will Affect Care: None marital status: Current Living Situation: Spouse Current Living Situation Comment: with current occupational status: employed current occupation: [employer] Feels Safe at Home: Yes Assistive Devices: Contacts, Denture - Upper, Denture - Lower and Glasses Review of Systems Review of Systems: All systems reviewed & are unremarkable except as noted in HPI & below Physical Exam Physical Exam: General: no distress, WDWN Head: normocephalic, atraumatic Eyes: conjunctiva non-injected, anicteric ENT: normal inspection external ears, nose, mucous membranes moist Neck: supple, trachea midline Lungs: clear, no respiratory distress, no wheezing/rhonchi/rales CV: RRR, no murmur, no pretibial edema Abd: normal BS, soft, non-tender Ext: no cyanosis, no calf tenderness Neuro: A&O x 3, no focal deficits noted, normal affect Skin: warm, dry Results & Data Results & Data Vital Signs (Past 12 Hours) Vital Signs Temp Pulse Resp BP Pulse Ox O2 Del Method 09/18/22 11:30 55 L 17 98 09/18/22 11:30 139/81 09/18/22 11:00 54 L 17 99 09/18/22 11:00 144/83 H 09/18/22 10:53 59 L 17 99 09/18/22 10:53 146/82 H 09/18/22 10:30 55 L 16 99 09/18/22 10:08 59 L 24 99 09/18/22 10:08 147/87 H 09/18/22 10:00 54 L 18 98 09/18/22 09:57 52 L 24 99 09/18/22 10:15 96 Room Air 09/18/22 10:00 51 L 09/18/22 09:25 36.6 C 59 L 20 149/78 H 100 Room Air Laboratory Results Short CBC 09/18/22 Range/Units 10:00 WBC 6.10 (4.8-10.8) K/ul Hgb 13.8 (12.0-16.0) g/dl Hct 41.3 (37.0-47.0) % Plt Count 224 (130-400) K/uL BMP 09/18/22 10:00 Sodium 139 Potassium 4.0 Chloride 108 H Carbon Dioxide 26 BUN 17 Creatinine 0.97 Glucose 103 H Calcium 9.3 Liver Function 09/18/22 Range/Units 10:00 Total Bilirubin 0.5 (0.2-1.0) mg/dl AST 17 (13-39) U/L ALT 14 (7-52) U/L Alkaline Phosphatase 62 (34-104) U/L Albumin 4.2 (3.4-5.0) gm/dl Diagnostic Findings Chest X-Ray 09/18/22 09:58 SINGLE VIEW CHEST CLINICAL HISTORY: Atypical chest pain FINDINGS: An AP, portable, upright chest radiograph is compared to chest x-ray and chest CT dated 03/12/2022. The cardiomediastinal silhouette is unremarkable. The lungs and pleural spaces are clear. No pneumothorax is seen. The bony thorax is grossly intact. IMPRESSION: No active disease in the chest. ACT 112: Negative or not required by law. Electronically signed by: Philipp Lee M.D. 09/18/2022 10:32 AM Chest CTA 09/18/22 10:55 CT ANGIOGRAM OF THE CHEST CLINICAL HISTORY: Atypical left-sided chest pain. COMPARISON STUDY: Chest x-ray dated 09/18/2022. Chest CT dated 03/12/2022. TECHNIQUE: Following the IV administration of 120 cc of Optiray 320, CT angiogram of the chest was performed from the upper abdomen to the thoracic inlet utilizing the pulmonary embolus protocol. Images are reviewed in the axial, sagittal, and coronal planes. 3-D MIPS images are created and assessed. IV contrast was administered without complication. A dose lowering technique was utilized adhering to the principles of ALARA. CT DOSE: 434.17 mGycm FINDINGS: Thyroid: Mildly enlarged and heterogeneous. Thoracic aorta: The thoracic aorta is normal in caliber and demonstrates standard 3-vessel arch anatomy. No dissection is seen. Pulmonary vasculature: The pulmonary trunk is normal in caliber. There are no filling defects identified in main, lobar, or segmental pulmonary branches to suggest pulmonary embolus. Heart: The heart is enlarged and without pericardial effusion. Lungs and pleural spaces: Evaluation of the lung parenchyma is moderately degraded by motion artifact. There is no airspace consolidation or pleural effusion. Mild dependent atelectasis is noted at the lung bases. The trachea and central airways are clear. Mediastinum: There is no mediastinal lymphadenopathy. Kim: Clear. Axillae: There is no axillary lymphadenopathy. Upper abdomen: There is a moderate hiatal hernia. A calcification is noted in the right lobe of liver. There are numerous tiny hepatic cysts versus biliary hamartomas. These were also seen on 03/12/2022. Skeletal structures: The skeletal structures are osteopenic. No lytic or blastic bony lesions are seen. IMPRESSION: 1. There is no evidence of pulmonary embolus in the main, lobar, or segmental pulmonary arteries. 2. There is no airspace consolidation or pleural effusion. 3. Cardiomegaly. 4. Additional findings as above. ACT 112: Negative or not required by law. Electronically signed by: Philipp Lee M.D. 09/18/2022 12:01 PM ECG Rate (beats per minute): 50 Rhythm: sinus bradycardia Findings: + RBBB (incomplete RBBB) Supervising Physician Co-Signing Physician Notes Patient was seen and examined independently. Chart reviewed. Case discussed with FLETCHER. Agree with above
[2022-09-18] MEDS ORDERED: ACETAMINOPHEN 325 MG TAB PO PRN (14:56)
[2022-09-18] MEDS ORDERED: POLYETHYLENE (MIRALAX) 17 GM PACK PO PRN (14:56)
--- NOTE | 2022-09-18 15:37 | XCELERA ---
[id number]
[2022-09-18] MEDS ORDERED: METOPROLOL TARTRATE 25 MG TAB PO ONE (16:30)
--- NOTE | 2022-09-18 19:18 | Cardiology Consultation ---
Date of Consultation September 18, 2022 Assessment & Plan (1) Non-sustained ventricular tachycardia: - Patient presents with chest tightness has been found to have frequent brief runs of wide-complex tachycardia consistent with nonsustained ventricular tachycardia. Laboratory studies include negative high-sensitivity troponin, kidney function electrolytes within normal limits. TSH minimally elevated. -Echocardiogram without significant structural heart disease, normal biventricular systolic function. No evidence of cardiomyopathy. Presentation somewhat atypical for ischemic heart disease. -Admit to the telemetry floor. Start metoprolol tartrate, 25 mg x 1 administered in the emergency room, then 12.5 mg twice daily from there with hold parameters of heart rate less than 60 and systolic blood pressure less than 100 mmHg. History of Present Illness Attending Physician: David Johnson MD History of Present Illness Yue Abbott is a 62-year-old female seen in cardiology consultation per the request of Chloe Gallegos for the evaluation of chest tightness and episodes of nonsustained ventricular tachycardia on telemetry. Patient's history is notable for left breast carcinoma for which she underwent previous partial mastectomy and sentinel lymph node resection, radiation and chemotherapy. She been diagnosed with a DVT and pulmonary embolism in September, and is now chronically anticoagulated with Eliquis. 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 She describes as a tightness and an occasional "fluttering "sensation. In the emergency department, she has been noted to have frequent episodes of wide- complex tachycardia consistent with nonsustained ventricular tachycardia often of 5-11 beats in duration with rate of 150 to 190 bpm. She feels some of these episodes, but not all of them. She denies any lightheadedness, dizziness, syncope or near syncope. She has not had the symptoms prior to today. CT angiogram of the chest was negative for pulmonary embolism. Allergies Allergy/AdvReac Type Severity Reaction Status Date / Time bee venom protein (honey bee) Allergy Intermediate THROAT Verified 03/12/22 23:50 SWELLING ibuprofen Allergy Intermediate Hives Verified 03/12/22 23:50 Sulfa (Sulfonamide Allergy Intermediate Hives Verified 03/12/22 23:50 Antibiotics) Home Medications Medication Instructions Recorded Confirmed Type epinephrine 0.3 mg/0.3 mL 0.3 mg IM UD PRN BEE STINGS 04/29/20 09/18/22 History injection, auto-injector topiramate 50 mg tablet 50 mg PO QAM 07/17/21 09/18/22 History acetaminophen 325 mg tablet 650 mg PO Q6H PRN pain #50 tabs 09/17/21 09/18/22 Rx famotidine 20 mg tablet 20 mg PO QAM 10/23/21 09/18/22 History letrozole 2.5 mg tablet 2.5 mg PO QAM 10/23/21 09/18/22 History calcium carbonate 600 mg-vitamin 1 cap PO DAILY 03/12/22 09/18/22 History D3 5 mcg (200 unit) capsule (Calcium 600 + D(3)) fluoxetine 10 mg capsule 10 mg PO QAM 03/12/22 09/18/22 History apixaban 2.5 mg tablet 2.5 mg PO BID #180 tabs 06/10/22 09/18/22 Rx levothyroxine 100 mcg tablet 100 mcg PO DAILY 09/18/22 09/18/22 History metformin 500 mg tablet 500 mg PO BID 09/18/22 09/18/22 History omeprazole 40 mg capsule,delayed 40 mg PO DAILY 09/18/22 09/18/22 History release Patient History Medical History Breast cancer (06/02/16) 2017, Invasive carcinoma of L breast, s/p lumpectomy and radiation. Chest pain ON RECORD-PT DENIES ANY RECENT CHEST PAIN Depression DVT (deep venous thrombosis) Extensive left leg DVT after left knee arthroscopy Encounter for pre-operative examination Fatty liver GERD (gastroesophageal reflux disease) Headache HX-CAUSED BY PINCHED NERVE IN NECK Hiatal hernia History of pulmonary embolism Hypothyroidism Prediabetes Pulmonary embolism Segmental and subsegmental pulmonary emboli after left knee arthroscopy Thyroid disease Hypothyroidism Surgical History History of 2 sections History of anesthesia reaction 1992 - Awareness during C/S after gas/mask induction. Eyes were closed but she could hear everything. Does not recall having spinal, but recalls only feeling pressure during procedure. History of colonoscopy History of esophagogastroduodenoscopy (EGD) History of lumpectomy of left breast WITH LYMPH NODES History of total knee replacement Family History Other No family history of adverse response to anesthesia Social History Smoking Status: Never smoker Second Hand Exposure: No; Hx Alcohol Use: No Hx Substance Use: No Preferred Language: Salvadorean Communication Ability: Effective Senior Java Engineer Required: No Beliefs That Will Affect Care: None marital status: Current Living Situation: Spouse Current Living Situation Comment: with current occupational status: employed current occupation: [employer] Feels Safe at Home: Yes Assistive Devices: Contacts, Denture - Upper, Denture - Lower and Glasses Review of Systems Review of Systems: All systems reviewed & are unremarkable except as noted in HPI & below Physical Exam Physical Exam: Temp Pulse Resp BP Pulse Ox O2 Del Method 36.8 C 61 18 135/73 96 Room Air 09/18/22 18:05 09/18/22 18:37 09/18/22 18:05 09/18/22 18:05 09/18/22 18:05 09/18/22 18:27 Constitutional: WD/WN, vitals as above Respiratory: normal respiratory effort, lungs clear to auscultation Cardiovascular: RRR, no murmur, no edema Gastrointestinal (Abdomen): normal bowel sounds, soft, nontender, no hepatosplenomegaly Neurologic: PERRL, EOMI, accommodation nl, no face palsy, no dysarthria Results & Data Laboratory Results Cardiac Enzymes 09/18/22 09/18/22 Range/Units 10:00 14:11 AST 17 (13-39) U/L Troponin I High Sens 4.4 2.8 (0-14) pg/ml CBC 09/18/22 Range/Units 10:00 WBC 6.10 (4.8-10.8) K/ul RBC 4.58 (4.20-5.40) M/uL Hgb 13.8 (12.0-16.0) g/dl Hct 41.3 (37.0-47.0) % Plt Count 224 (130-400) K/uL Neut # (Auto) 3.72 (1.40-6.50) K/uL Lymph # (Auto) 1.69 (1.2-3.4) K/uL Ness # (Auto) 0.47 (0.11-0.59) K/uL Eos # (Auto) 0.11 (0-0.50) K/uL Baso # (Auto) 0.08 (0-0.2) K/uL Comprehensive Metabolic Panel 09/18/22 Range/Units 10:00 Sodium 139 (136-145) mmol/L Potassium 4.0 (3.5-5.1) mmol/L Chloride 108 H (98-107) mmol/L Carbon Dioxide 26 (21-32) mmol/L BUN 17 (6-23) mg/dl Creatinine 0.97 (0.6-1.2) mg/dl Glucose 103 H (70-99(Fasting)) mg/dl Calcium 9.3 (8.6-10.3) mg/dl AST 17 (13-39) U/L ALT 14 (7-52) U/L Alkaline Phosphatase 62 (34-104) U/L Total Protein 6.8 (6.0-8.3) gm/dl Albumin 4.2 (3.4-5.0) gm/dl Intake and Output 09/18/22 09/18/22 09/18/22 06:59 14:59 22:59 Other: Weight 81.4 kg 81.4 kg Weight Measurement Method Chair Scale Built in [facility] Patient Weight 09/19/22 06:59 Weight 81.4 kg Diagnostic Findings Echocardiogram performed 09/18/2022: Mild concentric left ventricular hypertrophy Mild mitral regurgitation The right ventricular chamber size and systolic function was normal with no evidence of pulmonary hypertension by Doppler data. Relatively unchanged compared to September, with exception of noted PVCs and a ventricular run during the echo. EKG performed today 09/18/2022 at 9:31 AM: Sinus bradycardia 50 bpm, incomplete right bundle branch block. Nonspecific T wave flattening in lead III. Otherwise normal EKG.
[2022-09-18] MEDS: APIXABAN 2.5 MG TAB PO SCH (20:56)
[2022-09-18] MEDS: METOPROLOL TARTRATE 25 MG TAB PO SCH (22:52)
[2022-09-19 02:22] LABS: Hematocrit (blood only) 39.3 % (37.0-47.0); Hemoglobin 13.7 g/dl (12.0-16.0); Mean Corpuscular Hemoglobin 30.6 pg (25.0-34.0); Mean Corpuscular Hgb Conc 34.9 g/dL (32.0-36.0); Mean Corpuscular Volume 87.9 fL (80.0-100.0); Mean Platelet Volume 10.7 fL (9.4-12.4); Platelet Count 212 K/uL (130-400); RDW Coefficient of Variation 13.1 % (11.5-14.5); Red Blood Count 4.47 M/uL (4.20-5.40); White Blood Count 6.43 K/ul (4.8-10.8)
[2022-09-19 02:32] LABS: Calcium 9.2 mg/dl (8.6-10.3); Creatinine Clr Calc Pharmacy 58.8 ml/min; Est GFR (African American) 64.3 ml/min; Est GFR (Non-African American) 55.4 ml/min; Potassium 3.9 mmol/L (3.5-5.1)
[2022-09-19] MEDS: LEVOTHYROXINE SODIUM 100 MCG TABLET PO SCH (05:52)
--- NOTE | 2022-09-19 06:03 | Electrocardiogram Report ---
Test Reason : Blood Pressure : / mmHG Vent. Rate : 050 BPM Atrial Rate : 050 BPM P-R Int : 154 ms QRS Dur : 096 ms QT Int : 426 ms P-R-T Axes : 036 004 041 degrees QTc Int : 388 ms Sinus bradycardia Possible Left atrial enlargement Incomplete right bundle branch block Borderline ECG When compared with ECG of 12-MAR-2022 20:19, Vent. rate has decreased BY 26 BPM Confirmed by Sanju Gabriel ([id number]) on 09/19/2022 6:03:17 AM Referred By: REFERRED SELF Confirmed By:Sanju Gabriel
--- NOTE | 2022-09-19 07:42 | Electrocardiogram Report ---
Test Reason : Blood Pressure : / mmHG Vent. Rate : 060 BPM Atrial Rate : 060 BPM P-R Int : 162 ms QRS Dur : 102 ms QT Int : 440 ms P-R-T Axes : 033 -10 040 degrees QTc Int : 440 ms Normal sinus rhythm Normal ECG When compared with ECG of 18-SEP-2022 09:31, QT has lengthened Confirmed by Rob Murphy ([id number]) on 09/19/2022 7:42:13 AM Referred By: REFERRED SELF Confirmed By:Jose Murphy
[2022-09-19] MEDS: FLUoxetine HCL 10 MG CAP PO SCH (08:15)
[2022-09-19] MEDS: FAMOTIDINE 20 MG TAB PO SCH (08:15)
[2022-09-19] MEDS: METOPROLOL TARTRATE 25 MG TAB PO SCH ×2 (08:16→09:46)
[2022-09-19] MEDS: PANTOprazole 40 MG TAB PO SCH (08:16)
[2022-09-19] MEDS: APIXABAN 2.5 MG TAB PO SCH ×2 (08:16→21:12)
[2022-09-19] MEDS: TOPIRAMATE 50 MG TAB PO SCH (08:16)
[2022-09-19] MEDS: LETROZOLE 2.5 MG TAB PO SCH (08:17)
[2022-09-19] MEDS ORDERED: METOPROLOL SUCC 25MG EXT REL TAB PO SCH (10:15)
--- NOTE | 2022-09-19 10:43 | Cardiology Progress Note ---
Date of Service September 19, 2022 Assessment & Plan (1) Non-sustained ventricular tachycardia: Plan: - Patient without significant structural heart disease on echocardiogram, with normal LVEF. -Patient received a single dose of metoprolol tartrate 25 mg yesterday, [place] tricular ectopy decrease in frequency overnight last night, but returned again this morning. Her p.m. and a.m. doses of metoprolol tartrate were held per parameters of heart rate less than 60. She received her metoprolol to tartrate dose, 12.5 mg later this morning when her heart rate was in the range of 60 to 80 bpm while awake. -At this time, we will likely transition to metoprolol succinate later today if heart rate allows. -Patient to remain hospitalized on telemetry while beta-blockers titrated. -Her overall risk of underlying ischemic heart disease appears low based on her risk factors. We will proceed with further ischemic work-up on Wednesday, approach to be determined based on how her hospitalization continues to develop. She is on chronic Eliquis 2.5 mg twice daily for past DVT, PE. CT angiogram was negative for recurrent pulmonary embolism. This is to be continued. I discussed the pathophysiology and rationale of work-up and treatment at length with patient. She was agreeable to remaining in the hospital pending further evaluation. Admission and Anticipated Discharge Date Admission Date: September 18, 2022 Subjective Patient seen in cardiology follow-up of subjective symptoms of chest tightness, "fluttering ", and episodes of nonsustained ventricular tachycardia on telemetry. Patient states her chest tightness has resolved. She notes occasional subjective sensation of the fluttering this morning. Per review of telemetry, the frequency of the ventricular ectopy had improved overnight last night with occasional ventricular couplets. This morning, while resting in bed, recurrent episodes of short runs of nonsustained ventricular tachycardia observed in the range of 6-9 beats in duration. She tends to feel some of these but not all of them. No symptoms to suggest lightheadedness, dizziness syncope or presyncope. Review of Systems Review of Systems: All systems reviewed & are unremarkable except as noted in HPI & below Physical Exam Constitutional: WD/WN, vitals as above Respiratory: normal respiratory effort, lungs clear to auscultation Cardiovascular: RRR, no murmur, no edema Gastrointestinal (Abdomen): normal bowel sounds, soft, nontender, no hepatosplenomegaly Neurologic: PERRL, EOMI, accommodation nl, no face palsy, no dysarthria Psychiatric: A+Ox3, euthymic affect Results & Data Vital Signs (Past 12 Hours) Vital Signs Temp Pulse Pulse Resp BP Pulse Ox O2 Del Method 09/19/22 09:16 56 L 09/19/22 09:44 81 100/62 09/19/22 08:03 37.0 C 54 L 17 95/57 L 98 Room Air 09/19/22 03:41 36.6 C 54 L 18 106/66 96 Room Air 09/18/22 23:13 36.9 C 54 L 18 108/66 94 Room Air Laboratory Results Cardiac Enzymes 09/18/22 09/18/22 09/18/22 Range/Units 10:00 14:11 19:23 AST 17 (13-39) U/L Troponin I High Sens 4.4 2.8 2.7 (0-14) pg/ml 09/19/22 Range/Units 01:51 AST (13-39) U/L Troponin I High Sens 2.8 (0-14) pg/ml CBC 09/19/22 Range/Units 01:51 WBC 6.43 (4.8-10.8) K/ul RBC 4.47 (4.20-5.40) M/uL Hgb 13.7 (12.0-16.0) g/dl Hct 39.3 (37.0-47.0) % Plt Count 212 (130-400) K/uL Comprehensive Metabolic Panel 09/18/22 09/19/22 Range/Units 10:00 01:51 Sodium 139 138 (136-145) mmol/L Potassium 4.0 3.9 (3.5-5.1) mmol/L Chloride 108 H 110 H (98-107) mmol/L Carbon Dioxide 26 22 (21-32) mmol/L BUN 17 18 (6-23) mg/dl Creatinine 0.97 1.06 (0.6-1.2) mg/dl Glucose 103 H 100 H (70-99(Fasting)) mg/dl Calcium 9.3 9.2 (8.6-10.3) mg/dl AST 17 (13-39) U/L ALT 14 (7-52) U/L Alkaline Phosphatase 62 (34-104) U/L Total Protein 6.8 (6.0-8.3) gm/dl Albumin 4.2 (3.4-5.0) gm/dl Intake and Output 09/18/22 09/19/22 09/19/22 22:59 06:59 14:59 Intake Total 360 / 360 Balance 360 / 360 Intake: Oral 360 / 360 Other: # Unmeasured Voids 2 1 Weight 81.4 kg 79.3 kg Weight Measurement Method Built in [facility] Built in [facility] Diagnostic Findings EKG performed today 09/19/2022 and interpreted independently: Sinus rhythm at 60 bpm. Corrected QT interval normal at [address] segments.
--- NOTE | 2022-09-19 16:59 | Hospitalist Progress Note ---
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 In ER noted to have couplet PVCs as well as several episodes of nonsustained V. tach 6-8 beats. Vitals stable. No significant electrolyte abnormality. Initial high-sensitivity troponin: 4 CTA chest: There is no evidence of pulmonary embolus in the main, lobar, or segmental pulmonary arteries. There is no airspace consolidation or pleural effusion. Cardiomegaly. In ER 0.25 inch Nitropaste applied. Patient chest tightness resolved in ER Tele showing non sustained VT episodes Echo showed normal EF, mild MR, normal RVSP. No sigificant change from 09/2021 Discussed with [employer] Operator who is planning to transition to metoprolol succinate, Got 25mg metoprolol succinate earlier this morning Continue tel monitoring Plan for stress test on wednesday Start metoprolol tartrate 12.5 twice daily with holding parameters (3) History of pulmonary embolism: Plan: History of DVT and PE in 09/2021 Chronically anticoagulated on Eliquis Continue Eliquis (4) Breast cancer: Plan: History of left breast cancer s/p partial mastectomy and sentinel lymph node resection, radiation and chemo Currently on letrozole (5) Prediabetes: Plan: A1c: 5.5 on 08/10/2022 Hold metformin Monitor morning BSG (6) GERD (gastroesophageal reflux disease): Plan: Continue H2 eun, PPI (7) Hypothyroidism: Plan: Continue levothyroxine DVT Prophylaxis On Eliquis Full Code as per discussion with pt Follows with Dr Arcos for routine care I spent a total of 40 minutes coordinating, documenting and providing care for this patient excluding time spent in performance of separately billed services Admission and Anticipated Discharge Date Admission Date: September 18, 2022 Subjective Patient seen and examined Denies any chest pain. Reports occasional palpitation earlier today described as 'fluttering' Denied cough, shortness of breath Denies nausea, vomiting, abdominal pain, diarrhea Denies dysuria, frequency urgency Physical Exam Constitutional: + well hydrated; no acute distress Eyes: PERRL, conjunctivae normal, anicteric sclerae ENMT: external ear and nose normal, oropharynx normal Respiratory: normal respiratory effort, lungs clear to auscultation Cardiovascular: Rate/Rhythm: regular rate and regular rhythm S1 S2 Gastrointestinal (Abdomen): normal bowel sounds, soft, nontender, no hepatosplenomegaly Musculoskeletal: no cyanosis or clubbing, extremities motor strength 5/5 Neurologic: PERRL, EOMI, accommodation nl, no face palsy, no dysarthria Psychiatric: A+Ox3, euthymic affect Results & Data Results & Data Vital Signs (Past 12 Hours) Vital Signs Temp Pulse Pulse Resp BP Pulse Ox O2 Del Method 09/19/22 15:58 36.7 C 52 L 17 97/55 L 96 Room Air 09/19/22 11:40 36.8 C 55 L 18 99/60 L 96 Room Air 09/19/22 09:16 56 L 09/19/22 09:44 81 100/62 09/19/22 08:03 37.0 C 54 L 17 95/57 L 98 Room Air Laboratory Results Abnormal lab results 09/19/22 Range/Units 01:51 Chloride 110 H (98-107) mmol/L Glucose 100 H (70-99(Fasting)) mg/dl
[2022-09-19] MEDS: METOPROLOL SUCC 25MG EXT REL TAB PO SCH (18:32)
[2022-09-20 06:26] LABS: Hematocrit (blood only) 41.9 % (37.0-47.0); Hemoglobin 14.5 g/dl (12.0-16.0); Mean Corpuscular Hemoglobin 30.2 pg (25.0-34.0); Mean Corpuscular Hgb Conc 34.6 g/dL (32.0-36.0); Mean Corpuscular Volume 87.3 fL (80.0-100.0); Platelet Count 226 K/uL (130-400); RDW Coefficient of Variation 13.2 % (11.5-14.5); RDW Standard Deviation 41.7 fL (36.4-46.3); White Blood Count 6.58 K/ul (4.8-10.8)
[2022-09-20 06:37] LABS: BUN Creatinine Ratio 23.2 (10-20); Calcium 9.5 mg/dl (8.6-10.3); Creatinine Clr Calc Pharmacy 64.6 ml/min; Est GFR (African American) 73.4 ml/min; Est GFR (Non-African American) 63.3 ml/min; Magnesium 2.1 mg/dl (1.7-2.4); Phosphorus 3.3 mg/dl (2.5-4.9); Potassium 4.2 mmol/L (3.5-5.1)
[2022-09-20] MEDS: LEVOTHYROXINE SODIUM 100 MCG TABLET PO SCH (06:44)
[2022-09-20] MEDS: TOPIRAMATE 50 MG TAB PO SCH (08:56)
[2022-09-20] MEDS: LETROZOLE 2.5 MG TAB PO SCH (08:56)
[2022-09-20] MEDS: METOPROLOL SUCC 25MG EXT REL TAB PO SCH (08:57)
[2022-09-20] MEDS: PANTOprazole 40 MG TAB PO SCH (08:57)
[2022-09-20] MEDS: APIXABAN 2.5 MG TAB PO SCH (08:57)
[2022-09-20] MEDS: FLUoxetine HCL 10 MG CAP PO SCH (08:57)
[2022-09-20] MEDS: FAMOTIDINE 20 MG TAB PO SCH (08:58)
--- NOTE | 2022-09-20 11:10 | Cardiology Progress Note ---
Date of Service September 20, 2022 Assessment & Plan (1) Non-sustained ventricular tachycardia: Plan: - Patient without significant structural heart disease on echocardiogram, with normal LVEF. -Patient has received 2 doses of metoprolol succinate 25 mg daily thus far, with reduction in the frequency of the PVCs, ventricular runs, but they have not ceased completely. -Her overall risk of underlying ischemic heart disease appears low based on her risk factors. -Right ventricular outflow tract ventricular tachycardia is a possibility, often times this is provoked with exercise. She is on chronic Eliquis 2.5 mg twice daily for past DVT, PE. CT angiogram was negative for recurrent pulmonary embolism. This is to be continued. I discussed the pathophysiology and rationale of work-up and treatment at length with patient. She was agreeable to remaining in the hospital pending further evaluation. Admission and Anticipated Discharge Date Admission Date: September 18, 2022 Subjective Patient seen in cardiology follow-up. At present asymptomatic. Has been at bedside. This morning just after 9 AM, she had several ongoing salvos of monomorphic nonsustained ventricular tachycardia in the range of 3-4 beats in duration. No lightheadedness or dizziness. Physical Exam Constitutional: WD/WN, vitals as above Respiratory: normal respiratory effort, lungs clear to auscultation Cardiovascular: RRR, no murmur, no edema Gastrointestinal (Abdomen): normal bowel sounds, soft, nontender, no hepatosplenomegaly Neurologic: PERRL, EOMI, accommodation nl, no face palsy, no dysarthria Psychiatric: A+Ox3, euthymic affect Results & Data Vital Signs (Past 12 Hours) Vital Signs Temp Pulse Pulse Resp BP Pulse Ox O2 Del Method 09/20/22 10:35 61 09/20/22 08:54 65 117/73 09/20/22 07:43 36.8 C 50 L 17 94/59 L 94 Room Air 09/20/22 03:32 36.6 C 48 L 18 92/53 L 95 Room Air Laboratory Results CBC 09/20/22 Range/Units 05:37 WBC 6.58 (4.8-10.8) K/ul RBC 4.80 (4.20-5.40) M/uL Hgb 14.5 (12.0-16.0) g/dl Hct 41.9 (37.0-47.0) % Plt Count 226 (130-400) K/uL Comprehensive Metabolic Panel 09/20/22 Range/Units 05:37 Sodium 140 (136-145) mmol/L Potassium 4.2 (3.5-5.1) mmol/L Chloride 109 H (98-107) mmol/L Carbon Dioxide 24 (21-32) mmol/L BUN 22 (6-23) mg/dl Creatinine 0.95 (0.6-1.2) mg/dl Glucose 120 H (70-99(Fasting)) mg/dl Calcium 9.5 (8.6-10.3) mg/dl Diagnostic Findings EKG performed 09/19/2022 and interpreted independently: Sinus rhythm at 60 bpm. QT interval 440 ms.
[2022-09-20] MEDS ORDERED: HEPARIN SODIUM/DEXTROSE 25,000 UNITS/500 ML BAG IV SCH ×2 (11:45→21:00)
--- NOTE | 2022-09-20 11:50 | Hospitalist Progress Note ---
Date of Service September 20, 2022 Assessment & Plan (1) Chest pain: (2) Non-sustained ventricular tachycardia: Plan: 62 y/o F with PMH left breast cancer s/p partial mastectomy and sentinel lymph node resection, radiation and chemo, History of DVT and PE 09/2021, now chronically anticoagulated on Eliquis, prediabetes, hypothyroidism, GERD, LLANOS presented to ER with c/o chest tightness prior to arrival. In ER noted to have couplet PVCs as well as several episodes of nonsustained V. tach 6-8 beats. Vitals stable. No significant electrolyte abnormality. Initial high-sensitivity troponin: 4 CTA chest: There is no evidence of pulmonary embolus in the main, lobar, or segmental pulmonary arteries. There is no airspace consolidation or pleural effusion. Cardiomegaly. In ER 0.25 inch Nitropaste applied. Patient chest tightness resolved in ER Tele showing non sustained VT episodes Echo showed normal EF, mild MR, normal RVSP. No sigificant change from 09/2021 Continue tel monitoring Plan for stress test tomorrow Eliquis held in case intervention is needed. Hep drip to be started on next dose of eliquis Continue metoprolol succinate started by Cardiology (3) History of pulmonary embolism: Plan: History of DVT and PE in 09/2021 Chronically anticoagulated on Eliquis Eliquis on hold as above (4) Breast cancer: Plan: History of left breast cancer s/p partial mastectomy and sentinel lymph node resection, radiation and chemo Currently on letrozole (5) Prediabetes: Plan: A1c: 5.5 on 08/10/2022 Hold metformin Monitor morning BSG (6) GERD (gastroesophageal reflux disease): Plan: Continue H2 eun, PPI (7) Hypothyroidism: Plan: Continue levothyroxine DVT Prophylaxis Eliquis held. Hep gtt to start on next eliquis schedule Full Code as per discussion with pt Follows with Dr Arcos for routine care I spent a total of 35 minutes coordinating, documenting and providing care for this patient excluding time spent in performance of separately billed services Admission and Anticipated Discharge Date Admission Date: September 18, 2022 Subjective Patient seen and examined Denied any complaints on ROS Tele showed some NSVT. These were asymptomatic Physical Exam Constitutional: + well hydrated; no acute distress Eyes: PERRL, conjunctivae normal, anicteric sclerae ENMT: external ear and nose normal, oropharynx normal Respiratory: normal respiratory effort, lungs clear to auscultation Cardiovascular: Rate/Rhythm: regular rate and regular rhythm S1 S2 Gastrointestinal (Abdomen): normal bowel sounds, soft, nontender, no hepatosplenomegaly Musculoskeletal: no cyanosis or clubbing, extremities motor strength 5/5 Neurologic: PERRL, EOMI, accommodation nl, no face palsy, no dysarthria Psychiatric: A+Ox3, euthymic affect Results & Data Results & Data Vital Signs (Past 12 Hours) Vital Signs Temp Pulse Pulse Resp BP Pulse Ox O2 Del Method 09/20/22 10:35 61 09/20/22 08:54 65 117/73 09/20/22 07:43 36.8 C 50 L 17 94/59 L 94 Room Air 09/20/22 03:32 36.6 C 48 L 18 92/53 L 95 Room Air Laboratory Results Abnormal lab results 09/20/22 Range/Units 05:37 Chloride 109 H (98-107) mmol/L BUN/Creatinine Ratio 23.2 H (10-20) Glucose 120 H (70-99(Fasting)) mg/dl
--- NOTE | 2022-09-20 19:02 | Communication Note ---
Date of Service: September 20, 2022 Lyme screen added given pt's clinical presentation.
[2022-09-20 20:29] LABS: Lyme Ab IgG w/WB Rflx Negative (Negative); Lyme Ab IgM w/WB Rflx Negative (Negative)
[2022-09-20] MEDS ORDERED: Heparin IV Adult Wt-Based Standard *NO* Bolus Protocol IV SCH (21:00)
[2022-09-20 21:59] LABS: Partial Thromboplastin Time 27.7 Seconds (21.0-31.0); Prothrombin Time 10.3 Seconds (9.0-12.0)
[2022-09-21 05:02] LABS: Hematocrit (blood only) 41.2 % (37.0-47.0); Hemoglobin 14.2 g/dl (12.0-16.0); Mean Corpuscular Hemoglobin 30.3 pg (25.0-34.0); Mean Corpuscular Hgb Conc 34.5 g/dL (32.0-36.0); Mean Platelet Volume 10.7 fL (9.4-12.4); Platelet Count 219 K/uL (130-400); RDW Standard Deviation 41.6 fL (36.4-46.3); Red Blood Count 4.68 M/uL (4.20-5.40); White Blood Count 6.64 K/ul (4.8-10.8)
[2022-09-21 05:05] LABS: BUN Creatinine Ratio 23.6 (10-20); Calcium 9.7 mg/dl (8.6-10.3); Creatinine Clr Calc Pharmacy 55.8 ml/min; Est GFR (African American) 61.4 ml/min; Phosphorus 3.3 mg/dl (2.5-4.9); Potassium 3.8 mmol/L (3.5-5.1)
[2022-09-21 05:31] LABS: Partial Thromboplastin Ratio 2.4
[2022-09-21 05:52] LABS: Partial Thromboplastin Time 65.5 Seconds (21.0-31.0)
[2022-09-21] MEDS: LEVOTHYROXINE SODIUM 100 MCG TABLET PO SCH (06:49)
--- NOTE | 2022-09-21 10:38 | Cardiology Progress Note ---
Date of Service September 21, 2022 Assessment & Plan (1) Non-sustained ventricular tachycardia: Plan: Patient without significant structural heart disease on echocardiogram, with normal LVEF. PVCs and runs of nonsustained ventricular tachycardia reduced with addition of beta-eun therapy. Right ventricular outflow tract ventricular tachycardia is a possibility, often times this is provoked with exercise. We will proceed with exercise stress echo this morning. She is on chronic Eliquis 2.5 mg twice daily for past DVT, PE. Eliquis placed on hold with initiation of IV heparin yesterday. CT angiogram was negative for recurrent pulmonary embolism. Addendum: Exercise stress echo negative for inducible ischemia. No dysrhythmia during exercise. 6 beat run of nonsustained ventricular tachycardia during rest. No associated symptoms. Case discussed with electrophysiology. Recommend beta-eun therapy and outpatient evaluation within 1 week. Patient will be scheduled with EP, Dr. Villareal at [facility]. Admission and Anticipated Discharge Date Admission Date: September 18, 2022 Subjective Patient seen examined the bedside. Feeling well from a cardiovascular perspective. No recurrent chest discomfort. Denies palpitations, lightheadedness, dizziness, syncope, or near syncope. In general, she is unaware of her ventricular ectopy and ventricular tachycardia. Telemetry reveals sinus rhythm in the 40s and 50s with 3-7 beat runs of nonsustained ventricular tachycardia over the past 24 hours. Review of Systems Review of Systems: All systems reviewed & are unremarkable except as noted in Subjective Physical Exam Constitutional: well developed and well nourished; no acute distress and not ill appearing Respiratory: no respiratory distress, no labored breathing and no retractions Auscultation: no crackles, no rales, no rhonchi and no wheezes Cardiovascular: Rate/Rhythm: regular rate and regular rhythm Heart Sounds: normal S1 and normal S2; no murmur Vessels: radial pulses present; no JVD Extremities: no edema Gastrointestinal (Abdomen): Inspection/Auscultation: abdomen normal to inspection and normal bowel sounds; abdomen not distended Percussion/Palpation: abdomen soft; abdomen nontender, no guarding and abdomen not rigid Neurologic: CN's II-XI intact bilaterally and moves all extremities; no focal motor deficits Psychiatric: A+Ox3, euthymic affect Results & Data Vital Signs (Past 12 Hours) Vital Signs Temp Pulse Pulse Resp BP Pulse Ox O2 Del Method 09/21/22 08:35 36.8 C 58 L 18 96/61 L 93 Room Air 09/21/22 04:13 36.6 C 55 L 18 100/64 96 Room Air 09/21/22 01:24 56 L 09/20/22 23:28 36.6 C 55 L 18 96/58 L 95 Room Air Laboratory Results Coagulation 09/20/22 09/21/22 Range/Units 21:40 04:35 PT 10.3 (9.0-12.0) Seconds APTT 27.7 65.5 H* (21.0-31.0) Seconds CBC 09/21/22 Range/Units 04:35 WBC 6.64 (4.8-10.8) K/ul RBC 4.68 (4.20-5.40) M/uL Hgb 14.2 (12.0-16.0) g/dl Hct 41.2 (37.0-47.0) % Plt Count 219 (130-400) K/uL Comprehensive Metabolic Panel 09/21/22 Range/Units 04:35 Sodium 136 (136-145) mmol/L Potassium 3.8 (3.5-5.1) mmol/L Chloride 109 H (98-107) mmol/L Carbon Dioxide 24 (21-32) mmol/L BUN 26 H (6-23) mg/dl Creatinine 1.10 (0.6-1.2) mg/dl Glucose 120 H (70-99(Fasting)) mg/dl Calcium 9.7 (8.6-10.3) mg/dl Intake and Output 09/20/22 09/21/22 09/21/22 22:59 06:59 14:59 Intake Total 440 / 1075 215.417 / 215.417 Balance 440 / 1075 215.417 / 215.417 Intake: IV 215.417 / 215.417 Heparin Sodium/Dextrose 25,000 215.417 / 215.417 units In 500 ml @ 1,250 UNITS/ HR 25 mls/hr IV .Q20H [facility] Rx#: [id number] Oral 440 / 1075 Other: # Unmeasured Voids 2 2 Weight 78.8 kg Weight Measurement Method Built in [facility]
[2022-09-21] MEDS: TOPIRAMATE 50 MG TAB PO SCH (12:25)
[2022-09-21] MEDS: FAMOTIDINE 20 MG TAB PO SCH (12:25)
[2022-09-21] MEDS: FLUoxetine HCL 10 MG CAP PO SCH (12:26)
[2022-09-21] MEDS: LETROZOLE 2.5 MG TAB PO SCH (12:27)
[2022-09-21] MEDS: METOPROLOL SUCC 25MG EXT REL TAB PO SCH (12:27)
[2022-09-21] MEDS: PANTOprazole 40 MG TAB PO SCH (12:27)
--- NOTE | 2022-09-21 13:21 | Hospitalist Progress Note ---
Date of Service September 21, 2022 Assessment & Plan Admission and Anticipated Discharge Date Admission Date: September 18, 2022 Results & Data Results & Data Vital Signs (Past 12 Hours) Vital Signs Temp Pulse Pulse Resp BP Pulse Ox O2 Del Method 09/21/22 08:35 36.8 C 58 L 18 96/61 L 93 Room Air 09/21/22 04:13 36.6 C 55 L 18 100/64 96 Room Air 09/21/22 01:24 56 L
--- NOTE | 2022-09-21 14:17 | Discharge Summary ---
Date of Service September 21, 2022 Admission HPI Per Admitting Provider Patient is 62 y/o F with PMH left breast cancer s/p partial mastectomy and sentinel lymph node resection, radiation and chemo, History of DVT and PE 09/2021, now chronically anticoagulated on Eliquis, hypothyroidism, GERD, LLANOS presented to ER with c/o CP. Patient states was standing at work when she had sudden onset of chest tightness. She states her head felt a little "funny" but did not have significant dizziness or lightheadedness. Denies any associated shortness of breath, palpitations. She reports chest tightness lasted a couple of hours. In ER 0.25 inch nitro paste applied. Patient has been chest pain- free since in ER. On park keeper noted couplet PVCs as well as several episodes of nonsustained V. tach 6-8 beats. Patient denies OTC supplements or herbals. Drinks 20-40 ounces coffee daily. Denies fever/chills, diaphoresis, N/V/D/C, MIXON, syncope, vision changes, neck pain, SOB, orthopnea, palpitations, cough, sore throat, choking, otalgia, rhinorrhea, abdominal pain, paresthesias, weakness, extremity weakness, extremity edema, rashes, urinary symptoms. Admission Exam Per Admitting Provider General: no distress, WDWN Head: normocephalic, atraumatic Eyes: conjunctiva non-injected, anicteric ENT: normal inspection external ears, nose, mucous membranes moist Neck: supple, trachea midline Lungs: clear, no respiratory distress, no wheezing/rhonchi/rales CV: RRR, no murmur, no pretibial edema Abd: normal BS, soft, non-tender Ext: no cyanosis, no calf tenderness Neuro: A&O x 3, no focal deficits noted, normal affect Skin: warm, dry Principal Diagnosis Non sustained ventricular tachycardia Discharge Exam Constitutional + well hydrated; no acute distress Eyes PERRL, conjunctivae normal, anicteric sclerae ENMT external ear and nose normal, oropharynx normal Respiratory normal respiratory effort, lungs clear to auscultation Cardiovascular Rate/Rhythm: regular rate and regular rhythm S1 S2 Gastrointestinal (Abdomen) normal bowel sounds, soft, nontender, no hepatosplenomegaly Musculoskeletal no cyanosis or clubbing, extremities motor strength 5/5 Neurologic PERRL, EOMI, accommodation nl, no face palsy, no dysarthria Psychiatric A+Ox3, euthymic affect Discharge Data Allergies Allergy/AdvReac Type Severity Reaction Status Date / Time bee venom protein (honey bee) Allergy Intermediate THROAT Verified 03/12/22 23:50 SWELLING ibuprofen Allergy Intermediate Hives Verified 03/12/22 23:50 Sulfa (Sulfonamide Allergy Intermediate Hives Verified 03/12/22 23:50 Antibiotics) Consultations 09/18/22 14:22 Consult Cardiology Routine Ordered Studies 09/18/22 10:55 CT angio chest PE protocol Stat Hospital Course (1) Chest pain: (2) Non-sustained ventricular tachycardia: 62 y/o F with PMH left breast cancer s/p partial mastectomy and sentinel lymph node resection, radiation and chemo, History of DVT and PE 09/2021, now chronically anticoagulated on Eliquis, prediabetes, hypothyroidism, GERD, LLANOS presented to ER with c/o chest tightness prior to arrival. In ER noted to have couplet PVCs as well as several episodes of nonsustained V. tach 6-8 beats. Vitals stable. No significant electrolyte abnormality. Initial high-sensitivity troponin: 4 CTA chest: There is no evidence of pulmonary embolus in the main, lobar, or segmental pulmonary arteries. There is no airspace consolidation or pleural effusion. Cardiomegaly. In ER 0.25 inch Nitropaste applied. Patient chest tightness resolved in ER Inpatient telemetry showed non sustained VT episodes Echo showed normal EF, mild MR, normal RVSP. No significant change from 09/2021 Was started on metoprolol succinate 25mg daily Had exercise stress Echo today which was negative for inducible ischemia and no dysrhythmia during exercise. Had 6 beat run of NSVT during rest without symptoms. Discussed with Digital Marketing Strategist Dr Koch who recommends discharge patient on metoprolol succinate 25mg daily and they will make arrangement for EP follow up and evaluation outpatient with Dr Muir (3) History of pulmonary embolism: History of DVT and PE in 09/2021 Chronically anticoagulated on Eliquis (4) Breast cancer: History of left breast cancer s/p partial mastectomy and sentinel lymph node resection, radiation and chemo Currently on letrozole (5) Prediabetes: A1c: 5.5 on 08/10/2022 Continue home metformin (6) GERD (gastroesophageal reflux disease): Continue H2 eun, PPI (7) Hypothyroidism: Continue levothyroxine Total Time Total Time Spent Total Time Spent (In Minutes): 35 Total Time Includes: Examination of the Patient, Discharge Planning, Medication Reconciliation and Communication With Other Providers Discharge Plan Discharge Items Patient Disposition: Home - Self-Care Reason For Visit: Chest pain Discharge Diagnosis: Non sustained ventricular tachycardia Activity: Resume your previous activity Non-emergency contact: Primary Care Provider and Digital Marketing Strategist Call non-emergency contact if: you have any medication questions and your symptoms worsen Follow-up/Referrals: Mary Arcos MD [Primary Care Provider] - (Date & Time 09/25/2022 11:00 AM Provider Mary Arcos MD Department [facility] ) Mariana Muir DO [Physician] - (The cardiology office will call you with an appointment.) Diet: Carb Consistent or DM2 and Heart Healthy Addtl Attending Provider Instructions: Mrs Abbott. You came into the hospital complaining of chest pain. You were evaluated and found to have some abnormal heart rhythm (non sustained ventricular tachycardia). You also had a stress test. You are being discharged on metoprolol succinate 25mg daily. You will need to follow up with Bleach Supervisor which will be arranged by the Digital Marketing Strategist. Please ensure follow up with your Primary Doctor. It was a pleasure taking care of you. Pending Studies at Discharge: No Stand-Alone Forms: My [facility] [employer], Smoking Cessation Medications and DC Order Prescriptions: New metoprolol succinate 25 mg Tablet Extended Release 24 Hr 25 mg PO QAM Qty: 60 0RF Continued apixaban 2.5 mg tablet 2.5 mg PO BID Qty: 180 0RF epinephrine 0.3 mg/0.3 mL Auto-Injector 0.3 mg IM UD PRN (Reason: BEE STINGS) topiramate 50 mg Tablet 50 mg PO QAM acetaminophen 325 mg Tablet 650 mg PO Q6H PRN (Reason: pain) Qty: 50 0RF famotidine 20 mg tablet 20 mg PO QAM letrozole 2.5 mg tablet 2.5 mg PO QAM Calcium 600 + D(3) 600 mg-5 mcg (200 unit) Capsule 1 cap PO DAILY fluoxetine 10 mg capsule 10 mg PO QAM levothyroxine 100 mcg tablet 100 mcg PO DAILY metformin 500 mg tablet 500 mg PO BID Rx Instructions: prescribed BID, however has been taking daily omeprazole 40 mg capsule,delayed release(DR/EC) 40 mg PO DAILY Discharge Orders: Discharge Order (Routine); Ordered 09/21/22 Ordered By: Tami Phillips Admission Data Admit Date/Time: 09/18/22 12:50 Attending Provider: Tami Phillips I. Admit Provider: David Johnson Primary Care Provider: Mary Arcos Other Providers: Ry Eller ; David Johnson Other Interventions: Discharge Summary Assessment (RN) Last Done: 09/21/22 14:41
== END 2022-09-21 17:41 | disposition home or self-care (01) | DRG 310 ==
LOC: ED 09:20 → SUATTDRO 12:50 → EDINP 12:50 → 4W 14:53
DX: K21.9 Gastro-esophageal reflux disease without esophagitis; E03.9 Hypothyroidism, unspecified; I47.29 Other ventricular tachycardia; Z86.711 Personal history of pulmonary embolism; R73.03 Prediabetes; Z79.01 Long term (current) use of anticoagulants; Z79.890 Hormone replacement therapy; I45.19 Other right bundle-branch block; Z92.3 Personal history of irradiation; Z86.718 Personal history of other venous thrombosis and embolism; Z85.3 Personal history of malignant neoplasm of breast; Z88.2 Allergy status to sulfonamides; Z90.12 Acquired absence of left breast and nipple